=== PATIENT | female | born 1970 | race Caucasian/White ===

== ENCOUNTER 2018-02-23 01:37 | Emergency (ER) | payer MEDICARE, MEDICAID, SELFPAY ==
[2018-02-23] VITALS (21 sets, daily range): BP systolic 111–119; BP diastolic 68–84; PULSE 56–104; RESP 10–34; TEMP 37; O2SAT 94–99
--- NOTE | 2018-02-23 01:58 | W.ED.GENAD ---
Discharge Plan Disposition Patient Disposition: HOSPITAL, NON-SPECIFIC Condition: Stable Discharge Details Chief Complaint: Abd Prob Clinical Impression: Acute cholecystitis Primary Care Provider: NONE,NONE ED Provider: Alejandro Correa Home Meds and New Rx's Prescriptions: No Action No Known Home Meds RF: 0 Discharge Instructions Additional Instructions: Go directly to [facility] in [place] for admission to surgical service for acute cholecystitis. Medical Decision Making Patient presenting with acute onset of right upper quadrant pain that has worsened over the course of the night. She is exquisitely tender with guarding and Pedro sign. Reports previous history of gallbladder problems. IV has been established. Fluids started. Toradol given for pain. She does not wish to have narcotics. 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 scan of the abdomen pelvis ordered. Patient laboratory studies with slight elevation in her liver function but baseline and stable. Mild elevation in lipase as well. White count is normal. Pain much better after Toradol but matrix drier tender in the right upper quadrant with Pedro sign on exam. CT scan shows evidence of gallstones as well as thickened edematous gallbladder wall consistent with acute cholecystitis. Discussed options with patient as there are no beds here tonight. She would like transfer if possible. Case discussed with surgeon on-call for [facility], Dr. Corbett. He has accepted the patient in transfer and they do have beds available. Patient is given a dose of IV Zosyn here. She and significant other would like to go down by private vehicle. She is hemodynamically stable. Her pain is currently under control. I do not feel that she has risk for using her IV inappropriately given that she has been clean and sober for 3 years. She will be transported to [facility] by her significant other by private vehicle. Lab Data Lab results reviewed: Yes I reviewed the patient's lab results. ECG Data Attestation: I personally reviewed and interpreted this ECG (s) as follows: Prior ECG tracings: not available for review Interpretation: Sinus rhythm at 72. Normal axis and intervals. No acute ST changes. HPI General Mode of arrival: ambulatory. Date/Time Provider Initiated Documentation: 02/23/18 01:57. Limitations to Documentation: no limitations. Information obtained by: patient. HPI Narrative: Patient presents to ED with onset of epigastric/right upper quadrant abdominal pain around 9 PM tonight. She reports a history of gallstones and previous attacks. Typically if she develops pain she takes some Aleve and waits a couple of hours and it goes away. Tonight the pain has just got worse. She has had nausea and one episode of vomiting. Pain is radiating through to the back. She has had no fever. She has never had prolonged pain like this previously except once 7 or 8 years ago. She denies chest pain or shortness of breath. She denies urinary symptoms. Related Data Home Medications Medication Instructions Recorded Confirmed Unknown [No Known Home Meds] 02/23/18 02/23/18 Allergies Allergy/AdvReac Type Severity Reaction Status Date / Time Sulfa (Sulfonamide Allergy Mild Hives Unverified 11/12/13 02:57 Antibiotics) NSAIDS (Non-Steroidal AdvReac Mild Contraindic Unverified 02/23/18 01:54 Anti-Inflamma ated General Stated Complaint: Abd Prob MARIA A: 2 Review of Systems Constitutional Denies chills, Denies fever(s), Denies headache(s) and Denies weakness Eyes Denies change in vision and Denies eye pain ENT Denies facial pain, Denies headache(s) and Denies neck pain Cardiovascular Denies chest pain, Denies syncope, Denies pedal edema and Denies dyspnea Respiratory Denies cough and Denies dyspnea Gastrointestinal Reports abdominal pain, Denies diarrhea, Reports nausea and Reports vomiting Genitourinary Denies hematuria, Denies dysuria, Denies pelvic pain and Denies vaginal discharge Musculoskeletal Reports back pain, Denies neck pain and Denies numbness Integumentary/Breasts Denies rash Neurologic Denies syncope, Denies headache(s), Denies focal weakness, Denies numbness and Denies weakness [facility] Medical History Hepatitis C (Chronic) PTSD (post-traumatic stress disorder) (Chronic) Social History Smoking/Tobacco Use Status: Current every day Surgical History S/P tubal ligation (Inactive) Traumatic enucleation of left eye (Inactive) Exam Const General: cooperative and in distress Orientation: alert and oriented x3 HENMT Head: normocephalic and atraumatic Eyes Other: Right eye is normal. No icterus. Left eye is prosthetic. Neck Neck: normal visual inspection, trachea midline and supple Resp Effort & Inspection: normal respiratory effort Auscultation: clear to auscultation bilaterally Cardio Rate: regular rate Rhythm: regular rhythm Heart Sounds: S1 normal and S2 normal GI Palpation: soft, guarding in the RUQ and tender in the RUQ and Pedro's sign positive Back/Spine/Pelvis Back: no CVA tenderness Skin Rashes: no rashes Neuro General: alert, oriented x3, no focal motor deficits and CN's II-XI intact bilaterally Extrem General: normal to inspection, full ROM and no clubbing, cyanosis or edema Course Vital Signs Temperature 98.6 F 02/23/18 01:49 Pulse 76 02/23/18 01:49 Respiratory Rate 17 02/23/18 01:49 Blood Pressure 117/79 02/23/18 01:49 Pulse Oximetry 97 02/23/18 01:49 Temperature 98.6 F 02/23/18 01:49 Temperature Source Temporal Artery Scan 02/23/18 01:49 Pulse 76 02/23/18 01:49 Respiratory Rate 17 02/23/18 01:49 Respiratory Effort 02/23/18 01:53 Blood Pressure 117/79 02/23/18 01:49 Blood Pressure Position Sitting 02/23/18 01:49 Pulse Oximetry 97 02/23/18 01:49 Oxygen Delivery Method Room Air 02/23/18 01:49 Oxygen Flow Rate 0 02/23/18 01:49 Pain Level 7 02/23/18 01:49
--- NOTE | 2018-02-23 02:09 | DI.CT_ITS ---
SYMPTOM/DIAGNOSIS: RUQ PAIN, TENDERNESS ABDOMEN AND PELVIC CT: CT scan of the abdomen and pelvis was performed following the uneventful administration of intravenous contrast material. Comparison is made with . The visualized lung bases are clear. The liver is normal in size. The liver does have a lobulated contour raising the question of hepatic cirrhosis. No hepatic mass is seen. The gallbladder is distended measuring 5.9 cm. in diameter. There is enhancement of the wall. Small gallstones are present. There is pericholecystic fluid. No biliary ductal dilatation is seen. The portal and superior mesenteric veins are patent. The pancreas, adrenal glands, kidneys, ureters and bladder are unremarkable. The reproductive organs are grossly unremarkable. The spleen is unremarkable. The abdominal aorta shows mild atherosclerosis. No aneurysmal dilatation is seen. No significant abdominal or pelvic adenopathy or pneumoperitoneum is present. The bowel shows no evidence of obstruction or inflammation. There is a normal appendix present. Degenerative changes are seen in the spine. IMPRESSION: Cholelithiasis and findings raising the question of acute cholecystitis. Follow up as clinically appropriate.
[2018-02-23 02:30] LABS: Abs Immature Grans 0.01 k/cumm (0.0-0.09); Absolute Basophil Count 0.01 k/cumm (0.0-0.2); Absolute Eosinophil Count 0.06 k/cumm (0.0-0.7); Absolute Lymphocyte Count 1.83 k/cumm (1.2-3.4); Absolute Monocyte Count 0.35 k/cumm (0.11-0.7); Absolute Neutrophil Count 3.12 k/cumm (1.2-6.7); Basophils % 0.2; Eosinophils % 1.1; HCT 37.6 % (36.0-46.0); HGB 13.3 g/dL (12.0-15.5); Immature Grans % 0.2; Mean Corp. HGB Concentration 35.4 g/dL (32.0-36.0); Mean Corpuscular Hemoglobin 34.9 pg (27.0-33.0); Mean Corpuscular Volume 98.7 fL (80-95); Mean Platelet Volume 11.9 fL (8.0-11.0); Monocytes % 6.5; Platelet Count 81 x1000/uL (130-400); RBC 3.81 m/cumm (4.00-5.20); RBC Distribution Width 13.8 % (11.7-14.6); White Blood Cell Count 5.38 k/cumm (4.4-10.8)
[2018-02-23] MEDS: Ketorolac 15 MG/ML VIAL IVP (02:32)
[2018-02-23] MEDS: Ondansetron 4 MG/2 ML VIAL IVP (02:33)
[2018-02-23] MEDS: Lactated Ringers 1,000 ML 125 ML IV (02:33)
[2018-02-23 02:38] LABS: Bilirubin Negative (Negative); Blood Negative (Negative); Clarity Clear; Glucose Negative (Negative); Ketones Negative (Negative); Leukocyte Esterase Negative (Negative); Nitrite Negative (Negative); Specific Gravity 1.015 (1.005-1.025); pH 7.5 (5-8)
[2018-02-23 02:41] LABS: ALT 96 U/L (12-78); AST 72 U/L (15-37); Albumin 3.6 g/dL (3.4-5.0); Alkaline Phosphatase 91 U/L (46-116); Anion Gap 11.4 mmol/L (3-11); BUN 13 mg/dL (7-18); Bilirubin, Total 0.6 mg/dL (0.2-1.0); CO2 27.6 mmol/L (21.0-32.0); CREATININE 0.82 mg/dL (0.55-1.02); Calcium 9.2 mg/dL (8.5-10.1); Chloride 100 mmol/L (98-107); Glucose 110 mg/dL (70-100); Lipase 415 U/L (73-393); Potassium 3.9 mmol/L (3.5-5.1); Sodium 139 mmol/L (136-145); Total Protein 7.5 g/dL (6.4-8.2)
[2018-02-23 03:00] LABS: Diff Comment Agrees w/ Instrument
[2018-02-23 03:01] LABS: RBC Morphology Normal
--- NOTE | 2018-02-23 03:08 | DI.VRAD_ITS ---
EXAM: CT Abdomen and Pelvis With Intravenous Contrast EXAM DATE/TIME: 02/23/2018 2:12 AM CLINICAL HISTORY: 47 years old, female; Pain; Abdominal pain TECHNIQUE: Axial computed tomography images of the abdomen and pelvis with intravenous contrast. Coronal and sagittal reformatted images were created and reviewed. COMPARISON: No relevant prior studies available. FINDINGS: Lower thorax: No acute findings. ABDOMEN: Liver: Normal. No mass. Gallbladder and bile ducts: Small stones in the gallbladder. Distended gallbladder with a thickened, edematous wall. Pancreas: Normal. No ductal dilation. Spleen: Normal. No splenomegaly. Adrenals: Normal. No mass. Kidneys and ureters: Normal. No hydronephrosis. Stomach and bowel: Normal. No obstruction. No mucosal thickening. Appendix: No evidence of appendicitis. PELVIS: Bladder: Unremarkable as visualized. Reproductive: Unremarkable as visualized. ABDOMEN and PELVIS: Intraperitoneal space: Normal. No free air. No significant fluid collection. Bones/joints: No acute fracture. No dislocation. Soft tissues: Unremarkable. Vasculature: Normal. No abdominal aortic aneurysm. Lymph nodes: Normal. No enlarged lymph nodes. IMPRESSION: Cholelithiasis and possibly cholecystitis. Dictated and Authenticated by: Justin Cohen MD. Ordering:SANJANA BRAGG MD
[2018-02-23] MEDS: PIPERACILLIN/TAZO 3.375 GM in Normal Saline 50 ML IVPB (04:01)
--- NOTE | 2018-02-23 04:04 | ED.GENADUL_ITS ---
Discharge Plan Disposition Patient Disposition: HOSPITAL, NON-SPECIFIC Condition: Stable Discharge Details Chief Complaint: Abd Prob Clinical Impression: Acute cholecystitis Primary Care Provider: NONE,NONE ED Provider: Alejandro Correa Home Meds and New Rx's Prescriptions: No Action No Known Home Meds RF: 0 Discharge Instructions Additional Instructions: Go directly to [facility] in [place] for admission to surgical service for acute cholecystitis. Medical Decision Making Patient presenting with acute onset of right upper quadrant pain that has worsened over the course of the night. She is exquisitely tender with guarding and Pedro sign. Reports previous history of gallbladder problems. IV has been established. Fluids started. Toradol given for pain. She does not wish to have narcotics. 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 scan of the abdomen pelvis ordered. Patient laboratory studies with slight elevation in her liver function but baseline and stable. Mild elevation in lipase as well. White count is normal. Pain much better after Toradol but still cleaner in the right upper quadrant with Pedro sign on exam. CT scan shows evidence of gallstones as well as thickened edematous gallbladder wall consistent with acute cholecystitis. Discussed options with patient as there are no beds here tonight. She would like transfer if possible. Case discussed with surgeon on-call for [facility], Dr. Corbett. He has accepted the patient in transfer and they do have beds available. Patient is given a dose of IV Zosyn here. She and significant other would like to go down by private vehicle. She is hemodynamically stable. Her pain is currently under control. I do not feel that she has risk for using her IV inappropriately given that she has been clean and sober for 3 years. She will be transported to [facility] by her significant other by private vehicle. Lab Data Lab results reviewed: Yes I reviewed the patient's lab results. ECG Data Attestation: I personally reviewed and interpreted this ECG (s) as follows: Prior ECG tracings: not available for review Interpretation: Sinus rhythm at 72. Normal axis and intervals. No acute ST changes. HPI General Mode of arrival: ambulatory . Date/Time Provider Initiated Documentation: 02/23/18 01:57 . Limitations to Documentation: no limitations . Information obtained by: patient . HPI Narrative: Patient presents to ED with onset of epigastric/right upper quadrant abdominal pain around 9 PM tonight. She reports a history of gallstones and previous attacks. Typically if she develops pain she takes some Aleve and waits a couple of hours and it goes away. Tonight the pain has just got worse. She has had nausea and one episode of vomiting. Pain is radiating through to the back. She has had no fever. She has never had prolonged pain like this previously except once 7 or 8 years ago. She denies chest pain or shortness of breath. She denies urinary symptoms. Related Data Home Medications Medication Instructions Recorded Confirmed Unknown [No Known Home Meds] 02/23/18 02/23/18 Allergies Allergy/AdvReac Type Severity Reaction Status Date / Time Sulfa (Sulfonamide Allergy Mild Hives Unverified 11/12/13 02:57 Antibiotics) NSAIDS (Non-Steroidal AdvReac Mild Contraindic Unverified 02/23/18 01:54 Anti-Inflamma ated General Stated Complaint: Abd Prob MARIA A: 2 Review of Systems Constitutional Denies chills, Denies fever(s), Denies headache(s) and Denies weakness Eyes Denies change in vision and Denies eye pain ENT Denies facial pain, Denies headache(s) and Denies neck pain Cardiovascular Denies chest pain, Denies syncope, Denies pedal edema and Denies dyspnea Respiratory Denies cough and Denies dyspnea Gastrointestinal Reports abdominal pain, Denies diarrhea, Reports nausea and Reports vomiting Genitourinary Denies hematuria, Denies dysuria, Denies pelvic pain and Denies vaginal discharge Musculoskeletal Reports back pain, Denies neck pain and Denies numbness Integumentary/Breasts Denies rash Neurologic Denies syncope, Denies headache(s), Denies focal weakness, Denies numbness and Denies weakness [facility] Medical History Hepatitis C (Chronic) PTSD (post-traumatic stress disorder) (Chronic) Social History Smoking/Tobacco Use Status: Current every day Surgical History S/P tubal ligation (Inactive) Traumatic enucleation of left eye (Inactive) Exam Const General: cooperative and in distress Orientation: alert and oriented x3 HENMT Head: normocephalic and atraumatic Eyes Other: Right eye is normal. No icterus. Left eye is prosthetic. Neck Neck: normal visual inspection, trachea midline and supple Resp Effort & Inspection: normal respiratory effort Auscultation: clear to auscultation bilaterally Cardio Rate: regular rate Rhythm: regular rhythm Heart Sounds: S1 normal and S2 normal GI Palpation: soft, guarding in the RUQ and tender in the RUQ and Pedro's sign positive Back/Spine/Pelvis Back: no CVA tenderness Skin Rashes: no rashes Neuro General: alert, oriented x3, no focal motor deficits and CN's II-XI intact bilaterally Extrem General: normal to inspection, full ROM and no clubbing, cyanosis or edema Course Vital Signs Temperature 98.6 F 02/23/18 01:49 Pulse 76 02/23/18 01:49 Respiratory Rate 17 02/23/18 01:49 Blood Pressure 117/79 02/23/18 01:49 Pulse Oximetry 97 02/23/18 01:49 Temperature 98.6 F 02/23/18 01:49 Temperature Source Temporal Artery Scan 02/23/18 01:49 Pulse 76 02/23/18 01:49 Respiratory Rate 17 02/23/18 01:49 Respiratory Effort 02/23/18 01:53 Blood Pressure 117/79 02/23/18 01:49 Blood Pressure Position Sitting 02/23/18 01:49 Pulse Oximetry 97 02/23/18 01:49 Oxygen Delivery Method Room Air 02/23/18 01:49 Oxygen Flow Rate 0 02/23/18 01:49 Pain Level 7 02/23/18 01:49
== END 2018-02-23 04:40 | disposition short-term general hospital (02) ==
PROVIDERS: Emergency Provider Emergency Medicine
DX: K80.00 Calculus of gallbladder with acute cholecystitis without obstruction (principal); R11.2 Nausea with vomiting, unspecified
CPT/HCPCS: 36415; 80053; 81025; 83690; 93005; 96361; 96365; 96375; 99285; 74177; 81003; 85025; 93010; J1885; J2405; J2543

== ENCOUNTER 2018-03-12 15:27 | Outpatient (REF) | payer MEDICARE, SELFPAY ==
[2018-03-12 19:05] LABS: ALT 70 U/L (12-78); AST 63 U/L (15-37); Albumin 3.9 g/dL (3.4-5.0); Alkaline Phosphatase 111 U/L (46-116); Anion Gap 9.5 mmol/L (3-11); BUN 7 mg/dL (7-18); Bilirubin, Total 0.3 mg/dL (0.2-1.0); CO2 26.5 mmol/L (21.0-32.0); CREATININE 0.81 mg/dL (0.55-1.02); Chloride 103 mmol/L (98-107); Glucose 115 mg/dL (70-100); Potassium 3.8 mmol/L (3.5-5.1); Sodium 139 mmol/L (136-145); Total Protein 7.7 g/dL (6.4-8.2)
[2018-03-12 19:08] LABS: Absolute Basophil Count 0.02 k/cumm (0.0-0.2); Absolute Eosinophil Count 0.04 k/cumm (0.0-0.7); Absolute Lymphocyte Count 1.28 k/cumm (1.2-3.4); Absolute Monocyte Count 0.28 k/cumm (0.11-0.7); Absolute Neutrophil Count 2.91 k/cumm (1.2-6.7); Basophils % 0.4; Eosinophils % 0.9; HCT 35.5 % (36.0-46.0); HGB 12.1 g/dL (12.0-15.5); Lymphocytes % 28.3; Mean Corp. HGB Concentration 34.1 g/dL (32.0-36.0); Mean Corpuscular Hemoglobin 34.4 pg (27.0-33.0); Mean Corpuscular Volume 100.9 fL (80-95); Mean Platelet Volume 12.2 fL (8.0-11.0); Monocytes % 6.2; Neutrophils % 64.2; Platelet Count 108 x1000/uL (130-400); RBC 3.52 m/cumm (4.00-5.20); RBC Distribution Width 14.1 % (11.7-14.6); White Blood Cell Count 4.53 k/cumm (4.4-10.8)
[2018-03-14 12:12] LABS: Hepatitis C Ab w Rflx HCV PCR Reactive (NEGAT)
== END 2018-03-12 15:47 ==
LOC: NCHCN 15:27
PROVIDERS: PCP Nurse Practitioner Family; Visit Provider Nurse Practitioner Family
DX: K74.60 Unspecified cirrhosis of liver (principal)
CPT/HCPCS: 80053; 86803; 85025; 87522

== ENCOUNTER 2018-04-26 17:56 | Outpatient (REF) | payer MEDICARE, MEDICAID, SELFPAY ==
[2018-04-26 18:49] LABS: INR 1.1 (0.9-1.1); Prothrombin Time 10.9 sec (9.3-11.0)
[2018-04-29 09:30] LABS: Hepatitis B Surface Ag Negative (NEGAT)
[2018-04-29 09:34] LABS: HIV-1/2 Ag & Ab Screen Negative (NEGAT)
[2018-04-29 09:37] LABS: HBs Antibody, Quant <3.1 mIU/mL; Hepatitis B Surface Ab Negative
[2018-04-29 09:52] LABS: Hep A Total Ab w Rflx IgM Negative (NEGAT); Hep B Core Antibody Negative (NEGAT)
[2018-04-30 17:09] LABS: HCV Genotype 1a (Undetected)
== END 2018-04-26 18:16 ==
LOC: NCHCN 17:56
PROVIDERS: PCP Nurse Practitioner Family; Visit Provider Family Medicine
DX: B19.20 Unspecified viral hepatitis C without hepatic coma (principal); Z11.4 Encounter for screening for human immunodeficiency virus [HIV]; Z01.84 Encounter for antibody response examination
CPT/HCPCS: 82172; 82247; 82977; 83010; 83883; 84460; 86704; 86706; 86709; 87340; 87389; 85610; 87521

== ENCOUNTER 2018-06-11 17:01 | Emergency (ER) | payer MEDICARE, MEDICAID, SELFPAY ==
[2018-06-11 17:07] VITALS: BP 132/76; PULSE 72; RESP 16; TEMP 36.7; O2SAT 99
--- NOTE | 2018-06-11 17:18 | W.ED.GENAD ---
Discharge Plan Disposition Patient Disposition: HOME Condition: Stable Discharge Details Chief Complaint: DentalOral Clinical Impression: Dental caries Primary Care Provider: Vivienne Kent ED Provider: Jared Gamez Home Meds and New Rx's Prescriptions: New penicillin V potassium 500 mg tablet 500 mg PO QID 10 Days Qty: 40 RF: 0 tramadol 50 mg tablet 50 mg PO Q6H PRN (Reason: pain) Qty: 7 RF: 0 Discharge Instructions Instructions: Dental Caries (ED) Medical Decision Making 47 yo female comes in with right upper tooth pain. She states the posterior half broke off last night. Denies fevers, chills, dyspnea, difficulty swallowing. Has numberous caries and has had this problem in the past per pt. Has right mid upper molar that is only molar left. Numerous caries to the point I can't tell what is normal tooth. No fluctuance. Normal oropharynx, no abscess I can drain and no findings to suggest ludwigs. Will start abx for possible pulpitis and advised f/[facility] dentist and return precautions given Differential Diagnosis dental caries, pulpitis HPI General Mode of arrival: ambulatory. Date/Time Provider Initiated Documentation: 06/11/18 17:13. Limitations to Documentation: no limitations. Information obtained by: patient. History of Present Illness 47 year old F presents to the emergency department with the chief complaint of tooth pain, described as severe, with intensity rated at 8. Quality is described as sharp, and is localized to the mouth. Patient reports no radiation. Patient started experiencing this day(s) (1) and it has been constant. No relieving factors improve symptom(s), No exacerbating factors reported . Patient notes no other symptoms.. Patient did receive the following treatments prior to arrival, NSAID Related Data Home Medications Medication Instructions Recorded Confirmed penicillin V potassium 500 mg PO QID 10 Days #40 tab 06/11/18 tramadol 50 mg PO Q6H PRN #7 tab 06/11/18 Previous Rx's Medication Instructions Recorded penicillin V potassium 500 mg PO QID 10 Days #40 tab 06/11/18 tramadol 50 mg PO Q6H PRN #7 tab 06/11/18 Allergies Allergy/AdvReac Type Severity Reaction Status Date / Time Sulfa (Sulfonamide Allergy Mild Hives Unverified 06/11/18 17:10 Antibiotics) NSAIDS (Non-Steroidal AdvReac Mild Contraindic Unverified 06/11/18 17:10 Anti-Inflamma ated bees Allergy Uncoded 06/11/18 17:10 tape Allergy Uncoded 06/11/18 17:10 General Stated Complaint: DentalOral MARIA A: 4 Review of Systems Review of Systems All systems reviewed & are unremarkable except as noted in HPI and below Constitutional Denies chills and Denies fever(s) ENT Denies change in voice Cardiovascular Denies chest pain and Denies dyspnea Respiratory Denies cough and Denies dyspnea Gastrointestinal Denies abdominal pain, Denies nausea and Denies vomiting Musculoskeletal Denies joint swelling Psychiatric Denies depression [facility] Medical History Hepatitis C (Chronic) PTSD (post-traumatic stress disorder) (Chronic) Surgical History S/P tubal ligation (Inactive) Traumatic enucleation of left eye (Inactive) Social History Smoking and Tabacco status: Current every day Exam Const General: no acute distress Orientation: alert HENMT Head: normal to inspection Ears: external ears normal General nose exam: external nose normal Mouth: moist mucous membranes Eyes General: appearance normal, both eyes and all related structures Neck Neck: normal visual inspection Resp Effort & Inspection: normal respiratory effort and able to speak in complete sentences Cardio Rate: regular rate Skin General skin exam: no rashes or lesions noted Neuro General: alert and oriented x3 Extrem General: normal to inspection Psych Mental Status: mental status grossly normal Course Vital Signs Temperature 36.7 C 06/11/18 17:07 Pulse 72 06/11/18 17:07 Respiratory Rate 16 06/11/18 17:07 Blood Pressure 132/76 06/11/18 17:07 Pulse Oximetry 99 06/11/18 17:07 Temperature 36.7 C 06/11/18 17:07 Temperature Source Skin 06/11/18 17:07 Pulse 72 06/11/18 17:07 Respiratory Rate 16 06/11/18 17:07 Respiratory Effort Non-Labored 06/11/18 17:07 Blood Pressure 132/76 06/11/18 17:07 Blood Pressure Position Sitting 06/11/18 17:07 Pulse Oximetry 99 06/11/18 17:07 Oxygen Delivery Method Room Air 06/11/18 17:07 Oxygen Flow Rate 0 06/11/18 17:07 Pain Level 7 06/11/18 17:07
--- NOTE | 2018-06-11 17:21 | ED.GENADUL_ITS ---
Discharge Plan Disposition Patient Disposition: HOME Condition: Stable Discharge Details Chief Complaint: DentalOral Clinical Impression: Dental caries Primary Care Provider: Vivienne Kent ED Provider: Jared Gamez Home Meds and New Rx's Prescriptions: New penicillin V potassium 500 mg tablet 500 mg PO QID 10 Days Qty: 40 RF: 0 tramadol 50 mg tablet 50 mg PO Q6H PRN (Reason: pain) Qty: 7 RF: 0 Discharge Instructions Instructions: Dental Caries (ED) Medical Decision Making 47 yo female comes in with right upper tooth pain. She states the posterior half broke off last night. Denies fevers, chills, dyspnea, difficulty swallowing. Has numberous caries and has had this problem in the past per pt. Has right mid upper molar that is only molar left. Numerous caries to the point I can't tell what is normal tooth. No fluctuance. Normal oropharynx, no abscess I can drain and no findings to suggest ludwigs. Will start abx for possible pulpitis and advised f/[facility] dentist and return precautions given Differential Diagnosis dental caries, pulpitis HPI General Mode of arrival: ambulatory . Date/Time Provider Initiated Documentation: 06/11/18 17:13 . Limitations to Documentation: no limitations . Information obtained by: patient . History of Present Illness 47 year old F presents to the emergency department with the chief complaint of tooth pain, described as severe, with intensity rated at 8. Quality is described as sharp, and is localized to the mouth. Patient reports no radiation. Patient started experiencing this day(s) (1) and it has been constant. No relieving factors improve symptom(s), No exacerbating factors reported . Patient notes no other symptoms.. Patient did receive the following treatments prior to arrival, NSAID Related Data Home Medications Medication Instructions Recorded Confirmed penicillin V potassium 500 mg PO QID 10 Days #40 tab 06/11/18 tramadol 50 mg PO Q6H PRN #7 tab 06/11/18 Previous Rx's Medication Instructions Recorded penicillin V potassium 500 mg PO QID 10 Days #40 tab 06/11/18 tramadol 50 mg PO Q6H PRN #7 tab 06/11/18 Allergies Allergy/AdvReac Type Severity Reaction Status Date / Time Sulfa (Sulfonamide Allergy Mild Hives Unverified 06/11/18 17:10 Antibiotics) NSAIDS (Non-Steroidal AdvReac Mild Contraindic Unverified 06/11/18 17:10 Anti-Inflamma ated bees Allergy Uncoded 06/11/18 17:10 tape Allergy Uncoded 06/11/18 17:10 General Stated Complaint: DentalOral MARIA A: 4 Review of Systems Review of Systems All systems reviewed & are unremarkable except as noted in HPI and below Constitutional Denies chills and Denies fever(s) ENT Denies change in voice Cardiovascular Denies chest pain and Denies dyspnea Respiratory Denies cough and Denies dyspnea Gastrointestinal Denies abdominal pain, Denies nausea and Denies vomiting Musculoskeletal Denies joint swelling Psychiatric Denies depression [facility] Medical History Hepatitis C (Chronic) PTSD (post-traumatic stress disorder) (Chronic) Surgical History S/P tubal ligation (Inactive) Traumatic enucleation of left eye (Inactive) Social History Smoking and Tabacco status: Current every day Exam Const General: no acute distress Orientation: alert HENMT Head: normal to inspection Ears: external ears normal General nose exam: external nose normal Mouth: moist mucous membranes Eyes General: appearance normal, both eyes and all related structures Neck Neck: normal visual inspection Resp Effort & Inspection: normal respiratory effort and able to speak in complete sentences Cardio Rate: regular rate Skin General skin exam: no rashes or lesions noted Neuro General: alert and oriented x3 Extrem General: normal to inspection Psych Mental Status: mental status grossly normal Course Vital Signs Temperature 36.7 C 06/11/18 17:07 Pulse 72 06/11/18 17:07 Respiratory Rate 16 06/11/18 17:07 Blood Pressure 132/76 06/11/18 17:07 Pulse Oximetry 99 06/11/18 17:07 Temperature 36.7 C 06/11/18 17:07 Temperature Source Skin 06/11/18 17:07 Pulse 72 06/11/18 17:07 Respiratory Rate 16 06/11/18 17:07 Respiratory Effort Non-Labored 06/11/18 17:07 Blood Pressure 132/76 06/11/18 17:07 Blood Pressure Position Sitting 06/11/18 17:07 Pulse Oximetry 99 06/11/18 17:07 Oxygen Delivery Method Room Air 06/11/18 17:07 Oxygen Flow Rate 0 06/11/18 17:07 Pain Level 7 06/11/18 17:07
== END 2018-06-11 17:25 | disposition home or self-care (01) ==
LOC: ER 17:39
PROVIDERS: Emergency Provider Emergency Medicine; PCP Nurse Practitioner Family
DX: K02.9 Dental caries, unspecified (principal)
CPT/HCPCS: 99283

== ENCOUNTER 2018-10-18 14:09 | Outpatient (REF) | payer MEDICARE, MEDICAID, SELFPAY ==
[2018-10-18 18:57] LABS: HCT 39.9 % (36.0-46.0); HGB 13.7 g/dL (12.0-15.5); Mean Corp. HGB Concentration 34.3 g/dL (32.0-36.0); Mean Corpuscular Hemoglobin 33.3 pg (27.0-33.0); Mean Corpuscular Volume 97.1 fL (80-95); Mean Platelet Volume 12.5 fL (8.0-11.0); RBC 4.11 m/cumm (4.00-5.20); RBC Distribution Width 13.5 % (11.7-14.6); White Blood Cell Count 5.36 k/cumm (4.4-10.8)
[2018-10-18 19:12] LABS: ALT 24 U/L (12-78); AST 21 U/L (15-37); Albumin 3.6 g/dL (3.4-5.0); Alkaline Phosphatase 128 U/L (46-116); Anion Gap 10.2 mmol/L (3-11); BUN 7 mg/dL (7-18); Bilirubin, Total 0.5 mg/dL (0.2-1.0); CO2 23.8 mmol/L (21.0-32.0); CREATININE 0.77 mg/dL (0.55-1.02); Calcium 8.8 mg/dL (8.5-10.1); Chloride 104 mmol/L (98-107); Glucose 88 mg/dL (70-100); Potassium 4.3 mmol/L (3.5-5.1); Sodium 138 mmol/L (136-145); Total Protein 7.8 g/dL (6.4-8.2)
[2018-10-18 19:23] LABS: Platelet Count 109 x1000/uL (130-400)
[2018-10-21 14:42] LABS: HCV RNA Detection Quantitative Undetected IU/mL (UNDECT)
== END 2018-10-18 14:29 ==
LOC: NCHCN 14:09
PROVIDERS: PCP Nurse Practitioner Family; Visit Provider Family Medicine
DX: B19.20 Unspecified viral hepatitis C without hepatic coma (principal); Z11.59 Encounter for screening for other viral diseases
CPT/HCPCS: 80053; 85027; 86803; 87522

== ENCOUNTER 2019-11-24 19:07 | Outpatient (REF) | payer MEDICARE, MEDICAID, SELFPAY ==
[2019-11-24 19:36] LABS: HCT 42.5 % (36.0-46.0); HGB 14.2 g/dL (11.2-15.7); MCH 32.6 pg (27.0-33.0); MCHC 33.4 % (32.0-36.0); MCV 97.7 fL (80-95); MPV 12.4 fL (8.0-11.0); Platelet Count 108 10^3/uL (130-400); RBC 4.35 10^6/uL (3.93-5.22); RDW 13.4 % (11.7-14.6); RDW-SD 48.7 fL; WBC 5.97 10^3/uL (4.4-10.8)
[2019-11-24 19:48] LABS: Prothrombin Time 10.4 sec (9.3-11.0)
[2019-11-24 20:01] LABS: ALT 33 U/L (14-59); AST 25 U/L (15-37); Albumin 4.2 g/dL (3.4-5.0); Alkaline Phosphatase 90 U/L (46-116); Anion Gap 12.2 mmol/L (3-11); BUN 16 mg/dL (7-18); Bilirubin, Total 0.3 mg/dL (0.2-1.0); CO2 24.8 mmol/L (21.0-32.0); Chloride 104 mmol/L (98-107); Glucose 110 mg/dL (74-106); Potassium 3.7 mmol/L (3.5-5.1); Sodium 141 mmol/L (136-145); Total Protein 7.8 g/dL (6.4-8.2)
[2019-11-26 13:04] LABS: HCV RNA Qualitative Undetected (Undetected)
== END 2019-11-24 19:27 ==
LOC: NCHCN 19:07
PROVIDERS: PCP Nurse Practitioner Family; Visit Provider Family Medicine
DX: B19.20 Unspecified viral hepatitis C without hepatic coma (principal); K74.60 Unspecified cirrhosis of liver
CPT/HCPCS: 80053; 85027; 87522; 85610

== ENCOUNTER → 2019-12-18 10:49 | Outpatient (BNVA) | payer MEDICARE, MEDICAID, SELFPAY | PROVIDERS: PCP Nurse Practitioner Family; Referring Provider Nurse Practitioner Family; Visit Provider Physical Therapy Assistant | DX: K92.1 Melena (principal); Z11.59 Encounter for screening for other viral diseases; K64.9 Unspecified hemorrhoids | CPT/HCPCS: 99213 ==

== ENCOUNTER 2019-12-23 09:14 | Outpatient (CLI) | payer MEDICARE, MEDICAID, SELFPAY ==
--- NOTE | 2019-12-23 08:45 | DI.RAD_ITS ---
EXAM: XR KNEE LT 2V AP,LAT CLINICAL HISTORY: pain. TECHNIQUE: 2D digital imaging was performed. COMPARISON: CR LEFT KNEE 3 VIEW COMPLETE from 08/11/2013 FINDINGS: Degenerative changes are seen in the left knee characterized by periarticular spurring and joint spac e narrowing. The findings are most marked in the lateral femoral tibial joint. The bones are intact and normally mineralized. There is a small joint effusion. The soft tissues are otherwise unremark able. IMPRESSION: Degenerative changes of the left knee. DATA REPOSITORY: RADIATION DOSE DELIVERED:
== END 2019-12-23 09:34 ==
PROVIDERS: PCP Nurse Practitioner Family; Referring Provider Family Medicine; Visit Provider Orthopaedic Surgery
DX: M17.12 Unilateral primary osteoarthritis, left knee (principal); M25.562 Pain in left knee; M25.511 Pain in right shoulder
CPT/HCPCS: 20610; 99203; 99214; 73560; J1040

== ENCOUNTER 2019-12-30 07:10 | Outpatient (CLI) | payer MEDICARE, MEDICAID, SELFPAY ==
[2019-12-31 20:40] LABS: COVID-19 RT-PCR Result NEGATIVE (Negative)
== END 2019-12-30 07:30 ==
PROVIDERS: Physical Therapy Assistant; PCP Nurse Practitioner Family; Visit Provider Surgery
DX: Z01.818 Encounter for other preprocedural examination (principal)
CPT/HCPCS: U0003

== ENCOUNTER 2020-01-02 07:22 | Day surgery (SDC) | payer MEDICARE, MEDICAID, SELFPAY ==
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
[2020-01-02 07:35] VITALS: BP 106/74; PULSE 81; RESP 16; TEMP 36.8; O2SAT 94
[2020-01-02] MEDS: Lactated Ringers 1,000 ML 80 ML IV (08:07)
--- NOTE | 2020-01-02 09:00 | W.PM.DSUDISC ---
Discharge Plan Disposition Patient Disposition: HOME Condition: Good Discharge Details Reason For Visit: EGD, Colonoscopy Attending Provider: Liana Douglas Primary Care Provider: Nicho Aguila Home Meds and New Rx's Prescriptions: Continued naproxen sodium [Aleve] 220 mg capsule 440 mg PO BID PRNRF: 0 Discontinued polyethylene glycol 3350 17 gram/dose powder 238 g PO ONCE Qty: 238 RF: 0 bisacodyl [Dulcolax (bisacodyl)] 5 mg tablet,delayed release (DR/EC) 5 mg PO ONCE Qty: 4 RF: 0 Discharge Instructions Additional Instructions: Findings: Your EGD showed mild inflammation in the stomach which could be a side effect of taking Aleve. Your colonoscopy was normal. Typical appearing internal hemorrhoids were present. Follow up: Plan for routine screening colonoscopy in 10 years Please call if you develop: fevers >101.5 Nausea or Vomiting Abdominal pain that is not transient DAY SURGERY UNIT POST EGD/COLONOSCOPY INSTRUCTIONS 1. Because there will be medication in your system for the next 24 hours, you may feel a little sleepy. Your coordination will be affected. Therefore: a. Do not drive or operate dangerous equipment for 24 hours. b. Do not drink alcohol beverages for 24 hours (not even beer). c. Plan to go home and rest for the day. 2. Generally there are no restrictions on your activity after a day or so has gone by, but you may feel a bit fatigued for a few days. 3 After you arrive home you may have a light meal and return to a normal diet as you can tolerate it without feeling sick to your stomach. 4. After surgery, you may feel pain or discomfort. This should be only transient, but if it persists please contact your doctor. 5. If there are any questions regarding the findings of your procedure, please feel free to contact your doctor. 6. If you are unable to contact your doctor with a problem, contact the hospital at [phone]. 7. Continue all your regular medications unless directed otherwise. I understand the above instructions and have no questions. Signature of Patient or Responsible Adult Escort Date/Time Name of Responsible Adult Escort Signature of Nurse Date/Time Activity:: Activity as Tolerated Diet:: As Tolerated Discharge Orders Discharge Orders: Discharge Order (Routine); Ordered 01/02/20 Ordered By: Liana Douglas DS: Diagnosis Discharge Diagnosis (1) Mild chronic gastritis: Status: Acute (2) Normal colonoscopy: Status: Acute
--- NOTE | 2020-01-02 09:02 | COLE_ITS ---
Date of service: 01/02/20 Time of Service: 10:04 Colonoscopy Report Date of procedure: 01/02/20 Pre-op diagnosis general: Hepatitis C, colon screening Post-op diagnosis procedure note: other (Mild gastritis, normal colon) Procedure: EGD with gastric biopsy Colonoscopy Surgeon: Liana Douglas Anesthesia proc note operative: MAC Indications: This patient presents for her first screening colonoscopy. She has occasional rectal bleeding with a hard stool. No FH colon cancer. Has a history of treated Hep C and presents for EGD to evaluate for possible varices. Procedure Description: The patient was placed in the left lateral position and propofol titrated to sedation. The endoscope was advanced into the esophagus under direct visualization. The scope was passed through the stomach and into the duodenum. There was no duodenitis or ulceration noted. The stomach itself showed mild inflammation in the antrum. Retroflexed view of the fundus and lesser curvature showed no evidence of gastric varices. Routine biopsies were taken from the gastric antrum. The GE junction was inspected and showed no significant stricture, inflammation, masses or Barretts. The scope was slowly withdrawn with no other esophageal lesions found. Digital rectal examination revealed no abnormalities. The scope was advanced to the cecum without difficulty. Her prep was adequate although thin stool lined the colon in places. This was rinsed clean. The ileocecal valve and appe ndiceal orifice were clearly identified. The scope was slowly withdrawn over the course of greater than 6 minutes with no abnormalities seen in the ascending, transverse, descending, sigmoid colon or rectum including on retroflexed view. She was noted to have typical appearing internal hemorrhoids which are the source of bleeding with a firm stool. The patient tolerated the procedure well and was stable to recovery. Plan for routine screening colonoscopy in 10 years or sooner if symptoms indicate.
--- NOTE | 2020-01-02 09:10 | STOM_PTH ---
PATIENT: Lluvia Ayala LOC: PATTI U#:[id number] AGE/SX: 49/F ROOM: RE01/02/[address]: Liana Douglas MD : 1970 BED: DIS: 01/02/2020 SPEC #: [id number] RECD: 01/02/20 12:48 STATUS: KIMBERLY REQ #: [id number] CATRACHO: 01/02/20 09:[address]: Liana Douglas DEPT: Surgical Specimen RECD BY: Tequila Santoro ENTERED: 01/02/20 12:48 SP TYPE: STOMACH OTHR DR: Vivienne Kent John Tissues: 1 - STOMACH BIOPSY Procedures: GROSS AND MICRO LEVEL 4 Comments: [id number]
[2020-01-02 10:24] VITALS: BP 109/66; PULSE 45; RESP 16; TEMP 36.8; O2SAT 98
== END 2020-01-02 11:00 | disposition home or self-care (01) ==
PROVIDERS: PCP Family Medicine; Visit Provider Surgery
PROC: (CPT 43239; principal; 2020-01-02 09:15)
DX: Z12.11 Encounter for screening for malignant neoplasm of colon (principal); K29.50 Unspecified chronic gastritis without bleeding; K64.9 Unspecified hemorrhoids; B18.2 Chronic viral hepatitis C; K74.60 Unspecified cirrhosis of liver
CPT/HCPCS: 43239; G0121; 88305; J2405; J2704

== ENCOUNTER 2020-06-21 12:16 | Emergency (ER) | payer MEDICARE, MEDICAID, SELFPAY ==
[2020-06-21 12:26] VITALS: BP 154/127; PULSE 117; RESP 22; TEMP 36.8; O2SAT 99
[2020-06-21] MEDS: Penicillin V POTASSIUM 500 MG TAB PO (12:45)
[2020-06-21] MEDS: HYDROcodone 5/Acetaminophen 325 TAB PO (12:45)
[2020-06-21 12:46] VITALS: BP 143/90; PULSE 78; RESP 18; O2SAT 100
--- NOTE | 2020-06-21 13:39 | ED.GENADUL_ITS ---
Discharge Plan Disposition Patient Disposition: HOME Condition: Good Discharge Details Clinical Impression: Pain, dental Primary Care Provider: Nicho Aguila ED Provider: Tequila Padgett Home Meds and New Rx's Prescriptions: New penicillin V potassium 500 mg tablet 500 mg PO QID Qty: 40 RF: 0 oxycodone 5 mg capsule 5 mg PO Q6H PRNQty: 4 RF: 0 No Action naproxen sodium [Aleve] 220 mg capsule 440 mg PO BID PRNRF: 0 Discharge Instructions Instructions: Toothache (ED) Additional Instructions: Follow-up with your dentist for further evaluation and management of your dental pain Take antibiotic as prescribed Yogurt daily while on antibiotic We are unable to prescribe additional opiate medication for your dental pain so it is important that your dentist be involved for treatment Take ibuprofen Tylenol as tolerated, you should not take regular Tylenol secondary to your history of hepatitis C Please return earlier should you have pain, fever, worsening pain, or with any new or progressing symptoms Medical Decision Making Patient been previously evaluated here for dental pain I did discuss with patient regarding risk of addiction with opiates and she signed a contract evidence of fractured decay Placed on penicillin and referral to dentist, patient is aware that we cannot write for another prescription for opiate analgesia Risk of addiction discussed No evidence of Danis angina No chest pain or shortness of breath, no stridor Reproducible dental pain on exam Return precautions discussed and patient understanding Differential Diagnosis Differential Diagnosis: Prophylaxis, pedicle fracture, angina, chronic pain Medical Records Medical records reviewed: Yes I reviewed the patient's medical records. HPI This 49-year-old female presents with right upper dental pain that started this morning while she was drinking coffee. She states she is scheduled to have numerous dental extractions with dentures and that the pain started abruptly while she was drinking her coffee. She denies any chest pain or shortness of breath. She denies any dizziness or weakness. She denies fever or chills. The pain is exacerbated with extremes of temperature and chewing. She reportedly took Naprosyn prior to arrival without alleviation of symptoms. Denies pregn tommy. She denies any additional complaints at this time time. General Date/Time Provider Initiated Documentation: 06/21/20 12:27 . Related Data Home Medications Medication Instructions Recorded Confirmed naproxen sodium 220 mg capsule 440 mg PO BID PRN cap 08/27/20 03/01/21 oxycodone 5 mg PO Q6H PRN #4 cap 06/21/20 penicillin V potassium 500 mg PO QID #40 tab 06/21/20 Previous Rx's Medication Instructions Recorded oxycodone 5 mg PO Q6H PRN #4 cap 06/21/20 penicillin V potassium 500 mg PO QID #40 tab 06/21/20 Allergies Allergy/AdvReac Type Severity Reaction Status Date / Time Sulfa (Sulfonamide Allergy Mild Hives Unverified 06/21/20 12:29 Antibiotics) duloxetine AdvReac Severe it Verified 06/21/20 12:29 started fucking with my brain and I had toxic shit NSAIDS (Non-Steroidal AdvReac Mild Contraindic Unverified 06/21/20 12:29 Anti-Inflamma ated tape Allergy Mild clear Uncoded 06/21/20 12:29 hospital tape bees Allergy Uncoded 06/21/20 12:29 General Stated Complaint: DentalOral MARIA A: 3 Review of Systems Narrative: Review of systems negative x7, indicated in HPI PFSH Medical History (Updated 06/21/20 @ 12:45 by INNA Mcintyre) Adjustment disorder Cirrhosis Hepatitis C History of bloody stools History of eye prosthesis left History of substance abuse PTSD (post-traumatic stress disorder) Tobacco dependence Surgical History History of cholecystectomy S/P tubal ligation Traumatic enucleation of left eye Social History (Updated 12/18/19 @ 14:31 by INNA Katz) Smoking/Tobacco Use Status: Current every day Tobacco Type: cigarettes Smoking packs per day: 0.75 Smoking cigarettes per day: 15.0 Smoking risk assessment performed?: Yes Alcohol Intake: former Drug use: Daily Substance use type: marijuana Details: Former substance user (Heroin) Sober since 2014 Current gender identity: female Do you feel safe at home: Yes Do you feel safe in your relationship?: Yes Exam Const General: acute distress [facility] Teeth image: 1. Area of dental fracture and significant decay throughout No evidence of Danis angina, uvula midline, no cough, no soft palate induration, no obvious collection Other: No stridor Eyes Pupils: PERRL Resp Effort & Inspection: normal respiratory effort Cardio Rate: regular rate Neuro General: patient alert and patient oriented x3 Course Vital Signs Vital signs: Vital Signs Temperature 36.8 C 06/21/20 12:26 Pulse 117 H 06/21/20 12:26 Respiratory Rate 22 06/21/20 12:26 Blood Pressure 154/127 H 06/21/20 12:26 Pulse Oximetry 99 06/21/20 12:26 Temperature 36.8 C 06/21/20 12:26 Temperature Source Skin 06/21/20 12:26 Pulse 78 06/21/20 12:46 Respiratory Rate 18 06/21/20 12:46 Respiratory Effort Non-Labored 06/21/20 12:30 Blood Pressure 143/90 H 06/21/20 12:46 Blood Pressure Position Sitting 06/21/20 12:26 Pulse Oximetry 100 06/21/20 12:46 Oxygen Delivery Method Room Air 06/21/20 12:46 Oxygen Flow Rate 0 06/21/20 12:46 Pain Level 10 06/21/20 13:10
== END 2020-06-21 13:11 | disposition home or self-care (01) ==
PROVIDERS: Emergency Provider Physician Assistant; PCP Family Medicine
DX: R68.84 Jaw pain (principal)
CPT/HCPCS: 99283

== ENCOUNTER 2020-06-28 20:12 | Outpatient (REF) | payer MEDICARE, MEDICAID, SELFPAY ==
[2020-06-28 18:38] LABS: HCT 44.1 % (36.0-46.0); HGB 15.2 g/dL (11.2-15.7); MCH 33.3 pg (27.0-33.0); MCHC 34.5 % (32.0-36.0); MCV 96.5 fL (80-95); MPV 11.8 fL (8.0-11.0); Platelet Count 119 10^3/uL (130-400); RBC 4.57 10^6/uL (3.93-5.22); RDW 13.4 % (11.7-14.6); RDW-SD 48.1 fL; WBC 5.73 10^3/uL (4.4-10.8)
[2020-06-28 18:59] LABS: Hemoglobin A1C 5.7 % (<5.7)
[2020-06-28 19:01] LABS: ALT 34 U/L (14-59); AST 24 U/L (15-37); Albumin 4.4 g/dL (3.4-5.0); Alkaline Phosphatase 97 U/L (46-116); Anion Gap 9.9 mmol/L (3-11); BUN 12 mg/dL (7-18); Bilirubin, Total 0.5 mg/dL (0.2-1.0); CO2 27.1 mmol/L (21.0-32.0); CREATININE 0.8 mg/dL (0.55-1.02); Calcium 9.1 mg/dL (8.5-10.1); Chloride 103 mmol/L (98-107); Glucose 100 mg/dL (74-106); Potassium 3.7 mmol/L (3.5-5.1); Sodium 140 mmol/L (136-145); TSH (W/Ref FT4) 1.25 uIU/mL (0.36-3.74); Total Protein 8.4 g/dL (6.4-8.2)
[2020-06-28 19:28] LABS: Calculated LDL 175 mg/dL (<100); Cholesterol 264 mg/dL (<200); Ferritin 96 ng/mL (8-252); HDL Cholesterol 71 mg/dL (40-60); Triglyceride 90 mg/dL (<150)
== END 2020-06-28 20:13 | disposition home or self-care (01) ==
LOC: NCHCN 20:12
PROVIDERS: PCP Family Medicine; Visit Provider Family Medicine
DX: K74.60 Unspecified cirrhosis of liver (principal); F43.23 Adjustment disorder with mixed anxiety and depressed mood; G25.81 Restless legs syndrome
CPT/HCPCS: 80053; 80061; 85027; 82728; 83036; 84443

== ENCOUNTER 2020-09-18 18:08 | Emergency (ER) | payer MEDICARE, MEDICAID, SELFPAY ==
[2020-09-18 18:20] VITALS: BP 138/98; PULSE 90; RESP 20; O2SAT 94
--- NOTE | 2020-09-18 18:41 | W.ED.GENAD ---
Discharge Plan Disposition Patient Disposition: HOME Condition: Stable Discharge Details Clinical Impression: Pain, dental, Infected dental caries Primary Care Provider: Nicho Aguila ED Provider: Xuan Davidson Home Meds and New Rx's Prescriptions: New penicillin V potassium 500 mg tablet 500 mg PO QID 7 Days Qty: 28 RF: 0 Continued acetaminophen [Tylenol] 325 mg Capsule RF: 0 Discharge Instructions Instructions: Dental Caries (ED), Toothache (ED) Additional Instructions: Drink plenty of fluids and get plenty of rest. Take Tylenol as needed directed for pain. Take the oxycodone for pain not relieved with Tylenol. Follow-up with your scheduled appointment with your dentist next month. Return immediately to the emergency department if you develop any worsening or new concerning symptoms. Discharge Data Discharge Physician: Xuan Davidson Medical Decision Making 50-year-old female with a history of chronic dental caries, hepatitis C, cirrhosis, PTSD and former heroin use malnourishment presents for dental pain since this morning. She has extensive dental caries throughout. She has tenderness to palpation to teeth numbers 6 and 7 with tenderness and erythema and edema to mucosa but no evidence of abscess. She states she has appointment for extraction of all her teeth over the next couple months in [place]. She states she was seen here recently for similar dental infection and treated with antibiotics and pain medication and improved. Review of records note that she was treated with Pen V K and oxycodone. Will give 1 dose of penicillin here as well as a few tabs of oxycodone to go. Advised to follow-up with her dentist as scheduled. Usual and customary return precautions given prior to discharge. Medical Records Medical records reviewed: Yes I reviewed the patient's medical records. HPI General Mode of arrival: ambulatory. Date/Time Provider Initiated Documentation: 09/18/20 18:31. Limitations to Documentation: no limitations. Information obtained by: patient. HPI Narrative: Patient is a 50-year-old female with a history of chronic dental pain and caries, hepatitis C, PTSD, cirrhosis presents for dental pain since this morning. She states she has an appointment to have all of her teeth extracted over the next 2 months. She states the pain is severe in her right upper teeth. She denies any known injury. She denies any fever. Related Data Home Medications Medication Instructions Recorded Confirmed acetaminophen [Tylenol] 09/18/20 penicillin V potassium 500 mg PO QID 7 Days #28 tab 09/18/20 Previous Rx's Medication Instructions Recorded penicillin V potassium 500 mg PO QID 7 Days #28 tab 09/18/20 Allergies Allergy/AdvReac Type Severity Reaction Status Date / Time Sulfa (Sulfonamide Allergy Mild Hives Unverified 06/21/20 12:29 Antibiotics) duloxetine AdvReac Severe it Verified 06/21/20 12:29 started fucking with my brain and I had toxic shit NSAIDS (Non-Steroidal AdvReac Mild Contraindic Unverified 06/21/20 12:29 Anti-Inflamma ated tape Allergy Mild clear Uncoded 06/21/20 12:29 hospital tape bees Allergy Uncoded 06/21/20 12:29 General Stated Complaint: DentalOral MARIA A: 4 Review of Systems Constitutional Constitutional: Reports as per HPI, Denies chills and Denies fever(s) Eyes Eyes: Denies blurry vision ENT Ears, Nose, Mouth, and Throat: Reports dental pain, Denies dizziness, Denies sore throat and Denies throat swelling Cardiovascular Cardiovascular: Denies chest pain and Denies dyspnea Respiratory Respiratory: Denies cough and Denies dyspnea Gastrointestinal Gastrointestinal: Denies abdominal pain, Denies diarrhea and Denies vomiting Genitourinary Genitourinary: Denies hematuria and Denies dysuria Musculoskeletal Musculoskeletal: Denies back pain and Denies numbness Integumentary/Breasts Skin/Breast: Denies lesions and Denies rash Neurologic Neurologic: Denies dizziness, Denies localized weakness and Denies numbness Allergic/Immunologic Allergic/Immunologic: Denies throat swelling [facility] Medical History (Updated 09/18/20 @ 18:50 by Xuan Davidson DO) Adjustment disorder Cirrhosis Hepatitis C History of bloody stools History of eye prosthesis left History of substance abuse PTSD (post-traumatic stress disorder) Tobacco dependence Surgical History History of cholecystectomy S/P tubal ligation Traumatic enucleation of left eye Social History (Updated 12/18/19 @ 14:31 by INNA Katz) Smoking/Tobacco Use Status: Current every day Tobacco Type: cigarettes Smoking packs per day: 0.75 Smoking cigarettes per day: 15.0 Smoking risk assessment performed?: Yes Alcohol Intake: former Drug use: Daily Substance use type: marijuana Details: Former substance user (Heroin) Sober since 2015 Current gender identity: female Do you feel safe at home: Yes Do you feel safe in your relationship?: Yes Exam Const General: cooperative and no acute distress HENMT Head: normal to inspection Ears: hearing grossly normal bilaterally, external ears normal and TM's normal bilaterally General nose exam: external nose normal Mouth: oral mucosae normal Teeth and gingiva: caries, poor dentition and other (Multiple missing teeth throughout) Teeth image: 1. Both teeth broken with extensive dental caries, edema and erythema noted to mucosa above the teeth. There is no fluctuant abscess noted. Throat: posterior oropharynx normal Eyes General: appearance normal, both eyes and all related structures Neck Neck: normal visual inspection Resp Effort & Inspection: normal respiratory effort and able to speak in complete sentences Cardio Rate: regular rate Skin General skin exam: no rashes or lesions noted Neuro General: patient alert, patient awake and patient oriented x3 Motor: muscle tone normal throughout Extrem General: normal to inspection and full ROM Psych Appearance: grossly normal Affect: normal affect Course Vital Signs Vital signs: Vital Signs Pulse 90 09/18/20 18:20 Respiratory Rate 20 09/18/20 18:20 Blood Pressure 138/98 H 09/18/20 18:20 Pulse Oximetry 94 09/18/20 18:20 Pulse 90 09/18/20 18:20 Respiratory Rate 20 09/18/20 18:20 Blood Pressure 138/98 H 09/18/20 18:20 Pulse Oximetry 94 09/18/20 18:20 Oxygen Delivery Method Room Air 09/18/20 18:20 Oxygen Flow Rate 0 09/18/20 18:20 Pain Level 10 09/18/20 18:20
[2020-09-18] MEDS: Penicillin V POTASSIUM 500 MG TAB PO (19:14)
[2020-09-18] MEDS: Penicillin V POTASSIUM 500 MG TAB, 4 TABS/BTL PO (19:14)
== END 2020-09-18 19:10 | disposition home or self-care (01) ==
PROVIDERS: Emergency Provider Physician Assistant; PCP Family Medicine
DX: R68.84 Jaw pain (principal); K04.7 Periapical abscess without sinus
CPT/HCPCS: 99283

== ENCOUNTER 2020-10-18 13:17 | Emergency (ER) | payer MEDICARE, MEDICAID, SELFPAY ==
[2020-10-18 13:23] VITALS: BP 131/84; PULSE 93; RESP 20; O2SAT 100
--- NOTE | 2020-10-18 13:36 | ED.GENADUL_ITS ---
Discharge Plan Disposition Patient Disposition: HOME Condition: Stable Discharge Details Clinical Impression: Infected dental caries Primary Care Provider: Nicho Aguila ED Provider: Xuan Davidson Home Meds and New Rx's Prescriptions: New penicillin V potassium 500 mg tablet 500 mg PO QID 7 Days Qty: 28 RF: 0 Continued acetaminophen [Tylenol] 325 mg Capsule RF: 0 Discharge Instructions Instructions: Dental Caries (ED) Additional Instructions: Drink plenty of fluids and get plenty of rest. Take Tylenol as needed and directed for pain. Take the oxycodone for pain not relieved with Tylenol. Your antibiotic prescription has been sent electronically to your pharmacy. Take this antibiotic as directed until finished. Follow-up with your scheduled appointment for your dental surgery next month. Return immediately to the emergency department if you develop any worsening or new concerning symptoms. Discharge Data Discharge Date/Time-TO BE ENTERED AT DEPARTURE: 10/18/20 14:07 Discharge Physician: Xuan Davidson Medical Decision Making 50yo F who presents to the ED w/ a c/o R lower dental pain since this morning. She has extensive dental caries and multiple missing teeth throughout. She had rotting teeth with tenderness to 2 teeth R lower jaw. There is no abscess. She appears uncomfortable and is tearful. No drooling, trismus, submandibular swelling. Will treat with antibiotics. She was given a few tabs of oxycodone. Advised to f/u with her scheduled appointment with her dentist for dental e xtraction next month. Usual and customary return precautions given prior to discharge. Medical Records Medical records reviewed: Yes I reviewed the patient's medical records. HPI General Mode of arrival: ambulatory . Date/Time Provider Initiated Documentation: 10/18/20 13:34 . Limitations to Documentation: no limitations . Information obtained by: patient . HPI Narrative: Pt is a 50yo F who presents to the ED w/ a c/o R lower dental pain since this morning. Pt states she recently saw her dentist and is planning to have extraction of most of her teeth next month. Pt states she had been pain free until this morning when her R lower teeth starting hurting. She denies fever. Pt was last seen here last month for dental pain of other teeth. She denies any new injury. She states she would like antibiotics again as this helped with her last infection. Related Data Home Medications Medication Instructions Recorded Confirmed acetaminophen [Tylenol] 09/18/20 penicillin V potassium 500 mg PO QID 7 Days #28 tab 10/18/20 Previous Rx's Medication Instructions Recorded penicillin V potassium 500 mg PO QID 7 Days #28 tab 10/18/20 Allergies Allergy/AdvReac Type Severity Reaction Status Date / Time Sulfa (Sulfonamide Allergy Mild Hives Unverified 10/18/20 13:26 Antibiotics) duloxetine AdvReac Severe it Verified 10/18/20 13:26 started fucking with my brain and I had toxic shit NSAIDS (Non-Steroidal AdvReac Mild Contraindic Unverified 10/18/20 13:26 Anti-Inflamma ated tape Allergy Mild clear Uncoded 10/18/20 13:26 hospital tape bees Allergy Uncoded 10/18/20 13:26 General Stated Complaint: DentalOral MARIA A: 4 Review of Systems All systems reviewed & are unremarkable except as noted in HPI and below Constitutional Constitutional: Reports as per HPI, Denies chills and Denies fever(s) Eyes Eyes: Denies blurry vision ENT Ears, Nose, Mouth, and Throat: Reports dental pain, Denies dizziness, Denies sore throat and Denies throat swelling Cardiovascular Cardiovascular: Denies chest pain and Denies dyspnea Respiratory Respiratory: Denies cough and Denies dyspnea Gastrointestinal Gastrointestinal: Denies abdominal pain, Denies diarrhea and Denies vomiting Genitourinary Genitourinary: Denies hematuria and Denies dysuria Musculoskeletal Musculoskeletal: Denies back pain and Denies numbness Integumentary/Breasts Skin/Breast: Denies lesions and Denies rash Neurologic Neurologic: Denies dizziness, Denies localized weakness and Denies numbness Allergic/Immunologic Allergic/Immunologic: Denies throat swelling [facility] Medical History (Updated 10/18/20 @ 13:55 by Xuan Davidson DO) Adjustment disorder Cirrhosis Hepatitis C History of bloody stools History of eye prosthesis left History of substance abuse PTSD (post-traumatic stress disorder) Tobacco dependence Surgical History History of cholecystectomy S/P tubal ligation Traumatic enucleation of left eye Social History (Updated 12/18/19 @ 14:31 by INNA Katz) Smoking/Tobacco Use Status: Current every day Tobacco Type: cigarettes Smoking packs per day: 0.75 Smoking cigarettes per day: 15.0 Smoking risk assessment performed?: Yes Alcohol Intake: former Drug use: Daily Substance use type: marijuana Details: Former substance user (Heroin) Sober since 2014 Current gender identity: female Do you feel safe at home: Yes Do you feel safe in your relationship?: Yes Exam Const General: cooperative, healthy appearing and no acute distress HENMT Head: normal to inspection Ears: hearing grossly normal bilaterally, external ears normal and TM's normal bilaterally General nose exam: external nose normal Mouth: oral mucosae normal Teeth and gingiva: poor dentition and other Teeth image: 1. Significant dental caries, teeth tender to palpation and black in color with breakdown. There is mild surrounding erythema and edema but no abscess. Eyes General: appearance normal, both eyes and all related structures Neck Neck: normal visual inspection, no lymphadenopathy, no meningeal signs, trachea midline, supple and No submandibular swelling Resp Effort & Inspection: normal respiratory effort and able to speak in complete sentences Cardio Rate: regular rate Skin General skin exam: no rashes or lesions noted Neuro General: patient alert, patient awake and patient oriented x3 Motor: muscle tone normal throughout Extrem General: normal to inspection and full ROM Psych Appearance: grossly normal Affect: normal affect Course Vital Signs Vital signs: Vital Signs Pulse 93 H 10/18/20 13:23 Respiratory Rate 20 10/18/20 13:23 Blood Pressure 131/84 10/18/20 13:23 Pulse Oximetry 100 10/18/20 13:23 Pulse 93 H 10/18/20 13:23 Respiratory Rate 20 10/18/20 13:23 Respiratory Effort Non-Labored 10/18/20 13:26 Blood Pressure 131/84 10/18/20 13:23 Blood Pressure Position Sitting 10/18/20 13:23 Pulse Oximetry 100 10/18/20 13:23 Pain Level 8 10/18/20 13:26
[2020-10-18] MEDS: Penicillin V POTASSIUM 500 MG TAB PO (14:06)
== END 2020-10-18 14:07 | disposition home or self-care (01) ==
PROVIDERS: Emergency Provider Physician Assistant; PCP Family Medicine
DX: K02.9 Dental caries, unspecified (principal); K04.7 Periapical abscess without sinus
CPT/HCPCS: 99283

== ENCOUNTER 2020-11-11 14:38 | Emergency (ER) | payer MEDICARE, MEDICAID, SELFPAY ==
[2020-11-11 14:49] VITALS: BP 144/81; PULSE 81; TEMP 36.9; O2SAT 98
--- NOTE | 2020-11-11 15:02 | ED.GENADUL_ITS ---
Discharge Plan Disposition Patient Disposition: HOME Condition: Improving Discharge Details Clinical Impression: Odontalgia Primary Care Provider: Nicho Aguila ED Provider: Dada Weaver Home Meds and New Rx's Prescriptions: New ondansetron HCl [Zofran] 4 mg tablet 4 mg PO QID PRN (Reason: nausea and vomiting) Qty: 10 RF: 0 oxycodone 5 mg tablet 5 mg PO Q8H PRN (Reason: pain) Qty: 7 RF: 0 Continued acetaminophen [Tylenol] 325 mg Capsule 500 mg PO Q8H RF: 0 amoxicillin 500 mg Tablet 500 mg PO Q8H RF: 0 No Action oxycodone 5 mg Tablet 5 mg PO Q4H PRNRF: 0 Discharge Instructions Instructions: Toothache (ED) Additional Instructions: May use provided oxycodone as needed for severe breakthrough pain. Resume the prescribed dosing of amoxicillin tomorrow 1 every 8 hours. Home to rest this evening. May use Zofran as needed for nausea. Return to emergency department for any acute concerns. Medical Decision Making This is a 50-year-old female who underwent dental extractions yesterday. She was confused on her instructions and was taking amoxicillin with 2 oxycodone tablets every 4 hours. This resulted in some nausea and emesis. Now with ongoing jaw pain and vomiting. She is afebrile with a blood pressure 144/81. IV access established, patient given fluid bolus, antiemetic, analgesia. Patient's laboratories are reassuring. She is improved following fluids and medications. She will require some ongoing antiemetic and small number of analgesics for home. I consented her for the use of narcotic. She is stable for discharge at this time. Lab Data Lab results reviewed: Yes I reviewed the patient's lab results. Labs: Laboratory Results - last 24 hr 11/11/20 11/11/20 15:45 15:45 WBC 9.10 RBC 4.25 Hgb 13.6 Hct 40.8 MCV 96.0 H MCH 32.0 MCHC 33.3 RDW 14.0 Plt Count 128 L MPV 11.3 H Immature Gran % 0.2 Neutrophils % 66.5 Lymphocytes % 27.3 Monocytes % 5.4 Eosinophils % 0.4 Basophils % 0.2 Nucleated RBC % 0 Absolute Neutrophils 6.05 Absolute Lymphocytes 2.48 Absolute Monocytes 0.49 Absolute Eosinophils 0.04 Absolute Basophils 0.02 Sodium 140 Potassium 3.5 Chloride 103 Carbon Dioxide 27.5 Anion Gap 9.5 BUN 19 H Creatinine 0.8 Estimated GFR/1.73 m2 >= 60.00 Glucose 107 H Calcium 9.2 HPI General Mode of arrival: ambulatory . Date/Time Provider Initiated Documentation: 11/11/20 14:55 . Limitations to Documentation: no limitations . Information obtained by: patient . History of Present Illness 50 year old F presents to the emergency department with the chief complaint of Vomiting after dental procedure, described as moderate, Quality is described as dull, and is localized to the abdomen. Patient reports no radiation. Patient started experiencing this hour(s) and it has been intermittent. No relieving factors improve symptom(s), No exacerbating factors reported . Patient notes denies fever/chills and headaches. Related Data Home Medications Medication Instructions Recorded Confirmed acetaminophen [Tylenol] 500 mg PO Q8H 09/18/20 11/11/20 amoxicillin 500 mg PO Q8H 11/11/20 11/11/20 ondansetron HCl [Zofran] 4 mg PO QID PRN #10 tab 11/11/20 oxycodone 5 mg PO Q4H PRN 11/11/20 11/11/20 oxycodone 5 mg PO Q8H PRN #7 tab 11/11/20 Previous Rx's Medication Instructions Recorded ondansetron HCl [Zofran] 4 mg PO QID PRN #10 tab 11/11/20 oxycodone 5 mg PO Q8H PRN #7 tab 11/11/20 Allergies Allergy/AdvReac Type Severity Reaction Status Date / Time Sulfa (Sulfonamide Allergy Mild Hives Unverified 11/11/20 14:56 Antibiotics) duloxetine AdvReac Severe it Verified 11/11/20 14:56 started fucking with my brain and I had toxic shit NSAIDS (Non-Steroidal AdvReac Mild Contraindic Unverified 11/11/20 14:56 Anti-Inflamma ated tape Allergy Mild clear Uncoded 11/11/20 14:56 hospital tape bees Allergy Uncoded 11/11/20 14:56 General Stated Complaint: GenMedical MARIA A: 3 Review of Systems Narrative: No fever at home. No abdominal pain. Vomited some blood. Able to take liquids and solids by mouth. Notes that she took extra oxycodone and amoxicillin. PFSH Medical History Adjustment disorder Cirrhosis Hepatitis C History of bloody stools History of eye prosthesis left History of substance abuse PTSD (post-traumatic stress disorder) Tobacco dependence Surgical History History of cholecystectomy S/P tubal ligation Traumatic enucleation of left eye Social History Smoking/Tobacco Use Status: Current every day Tobacco Type: cigarettes Smoking packs per day: 0.75 Smoking cigarettes per day: 15.0 Smoking risk assessment performed?: Yes Alcohol Intake: former Drug use: Daily Substance use type: marijuana Details: Former substance user (Heroin) Sober since 2014 Current gender identity: female Do you feel safe at home: Yes Do you feel safe in your relationship?: Yes Exam Narrative Exam Narrative: GEN: awake, alert, oriented 3. Pleasant, well groomed, interactive. HEAD: Normocephalic, atraumatic ENT: Mucous membranes moist, oropharynx mostly edentulous, no active bleeding, External ear exam unremarkable EYES: PERRL, EOMI NECK: Full ROM, no FAVIAN, no menigismus CHEST/RESP: Nontender, clear to auscultation bilateral, no wheeze/rhonchi/rales CARDIOVASCULAR: RRR, no murmur, rub ayan. 2+ Rad pulse bilateral ABDOMEN: Soft, nontender, no mass. +Bowel sounds EXT: Full ROM, no edema, no rash Neuro: Grossly normal neurologic exam, conversant, interactive. Psych: Speech fluent, thoughts congruent, affect normal Course Vital Signs Vital signs: Vital Signs Temperature 36.9 C 11/11/20 14:49 Pulse 81 11/11/20 14:49 Blood Pressure 144/81 H 11/11/20 14:49 Pulse Oximetry 98 11/11/20 14:49 Temperature 36.9 C 11/11/20 14:49 Temperature Source Oral 11/11/20 14:49 Pulse 81 11/11/20 14:49 Respiratory Effort Non-Labored 11/11/20 14:54 Blood Pressure 144/81 H 11/11/20 14:49 Blood Pressure Position Sitting 11/11/20 14:49 Pulse Oximetry 98 11/11/20 14:49 Oxygen Delivery Method Room Air 11/11/20 14:49 Oxygen Flow Rate 0 11/11/20 14:49 Pain Level 8 11/11/20 14:49
[2020-11-11] MEDS: Normal Saline 1,000 ML 1000 ML IV (15:50)
[2020-11-11 15:55] LABS: Abs Immature Grans 0.02 10^3/uL (0.0-0.06); Absolute Basophil Count 0.02 10^3/uL (0.0-0.2); Absolute Eosinophil Count 0.04 10^3/uL (0.0-0.7); Absolute Lymphocyte Count 2.48 10^3/uL (1.2-3.4); Absolute Monocyte Count 0.49 10^3/uL (0.1-0.8); Absolute Neutrophil Count 6.05 10^3/uL (1.2-6.7); Basophils % 0.2; Eosinophils % 0.4; HCT 40.8 % (36.0-46.0); HGB 13.6 g/dL (11.2-15.7); Immature Grans % 0.2; Lymphocytes % 27.3; MCHC 33.3 % (32.0-36.0); MPV 11.3 fL (8.0-11.0); Monocytes % 5.4; Neutrophils % 66.5; Nucleated RBC 0 %; Platelet Count 128 10^3/uL (130-400); RBC 4.25 10^6/uL (3.93-5.22); RDW-SD 49.6 fL
[2020-11-11 16:01] LABS: Anion Gap 9.5 mmol/L (3-11); BUN 19 mg/dL (7-18); CO2 27.5 mmol/L (21.0-32.0); CREATININE 0.8 mg/dL (0.55-1.02); Calcium 9.2 mg/dL (8.5-10.1); Chloride 103 mmol/L (98-107); Glucose 107 mg/dL (74-106); Potassium 3.5 mmol/L (3.5-5.1); Sodium 140 mmol/L (136-145)
[2020-11-11] MEDS: Ondansetron 4 MG/2 ML VIAL IVP (16:37)
[2020-11-11] MEDS: Ketorolac 15 MG/ML VIAL IVP (16:39)
[2020-11-11] MEDS: HYDROmorphone 2 MG/ML VIAL 1 MG IVP (16:41)
[2020-11-11] MEDS: Ondansetron O.D.T. 4 MG TABEF, 3 TABS/BTL PO (17:23)
[2020-11-11 18:03] VITALS: RESP 28
== END 2020-11-11 17:40 | disposition home or self-care (01) ==
PROVIDERS: Emergency Provider Emergency Medicine; PCP Family Medicine
DX: R11.2 Nausea with vomiting, unspecified; T36.0X1A Poisoning by penicillins, accidental (unintentional), initial encounter; R68.84 Jaw pain
CPT/HCPCS: 36415; 80048; 96361; 96374; 96375; 99284; 85025; 99283; J1885; J2405

== ENCOUNTER 2021-08-15 13:30 | Outpatient (REF) | payer MEDICARE, MEDICAID, SELFPAY ==
--- NOTE | 2021-08-15 12:11 | PAPFT_PTH ---
PATIENT: Lluvia Ayala LOC: [facility] U#:[id number] AGE/SX: 51/F ROOM: RE08/15/[address]: Nicho Aguila : 1970 BED: DIS: 08/15/2021 SPEC #: [id number] RECD: 08/15/21 18:07 STATUS: KIMBERLY REQ #: [id number] CATRACHO: 08/15/21 12:[address]: Nicho Aguila DEPT: [facility] Cytology RECD BY: Tequila Santoro Tissues: 1 - CX/ENDOCX FOR PAP SMEARS Procedures: PAP THIN PREP/UVM Screening HPV DNA PROBE Comments: [id number]
[2021-08-15 16:22] LABS: HCT 41.5 % (36.0-46.0); MCH 32.6 pg (27.0-33.0); MCHC 33.7 % (32.0-36.0); MCV 96.7 fL (80-95); MPV 11.5 fL (8.0-11.0); Platelet Count 120 10^3/uL (130-400); RBC 4.29 10^6/uL (3.93-5.22); RDW 13.9 % (11.7-14.6); RDW-SD 49.7 fL; WBC 4.21 10^3/uL (4.4-10.8)
[2021-08-15 16:30] LABS: INR 1.1 (0.9-1.1); Prothrombin Time 10.7 sec (9.3-11.0)
[2021-08-15 17:02] LABS: ALT 31 U/L (14-59); AST 28 U/L (15-37); Albumin 4.2 g/dL (3.4-5.0); Alkaline Phosphatase 104 U/L (46-116); Anion Gap 5.9 mmol/L (3-11); BUN 10 mg/dL (7-18); Bilirubin, Total 0.4 mg/dL (0.2-1.0); CO2 30.1 mmol/L (21.0-32.0); CREATININE 0.9 mg/dL (0.55-1.02); Calcium 9.4 mg/dL (8.5-10.1); Chloride 104 mmol/L (98-107); Glucose 106 mg/dL (74-106); Potassium 4.7 mmol/L (3.5-5.1); Sodium 140 mmol/L (136-145); Total Protein 8.4 g/dL (6.4-8.2)
== END 2021-08-15 13:31 | disposition home or self-care (01) ==
LOC: NCHCN 13:30
PROVIDERS: PCP Family Medicine; Visit Provider Family Medicine
DX: K74.60 Unspecified cirrhosis of liver (principal); Z12.4 Encounter for screening for malignant neoplasm of cervix; Z11.51 Encounter for screening for human papillomavirus (HPV)
CPT/HCPCS: 80053; 85027; 88142; 85610; 87624

== ENCOUNTER 2021-09-10 11:01 | Emergency (ER) | payer MEDICARE, MEDICAID, SELFPAY ==
[2021-09-10 11:12] VITALS: BP 144/88; PULSE 90; RESP 16; TEMP 36.3; O2SAT 98
--- NOTE | 2021-09-10 11:55 | ED.GENADUL_ITS ---
Discharge Plan Disposition Patient Disposition: HOME Condition: Stable Discharge Details Clinical Impression: Muscle strain of right shoulder, Lumbosacral ligament sprain Primary Care Provider: Nicho Aguila ED Provider: Dora Krishnan Home Meds and New Rx's Prescriptions: New diclofenac potassium 25 mg capsule 25 mg PO TID PRN (Reason: pain) 7 Days Qty: 14 0RF Rx Instructions: Take with food No Action acetaminophen [Tylenol] 325 mg Capsule 500 mg PO Q8H Discharge Instructions Instructions: Muscle Strain (ED), Lower Back Exercises (ED) Additional Instructions: Rest, ice, compression, elevation. Alternate ice and heat. Take medications with food as directed. Please take Ibuprofen with food every 4-6 hours as needed for pain and swelling. Follow up with primary care provider in 3-5 days. Return to ED sooner if any worsening or concerns. Increase oral fluids. Referrals: Nicho Aguila [Primary Care Provider] - 1 week Discharge Data Discharge Date/Time-TO BE ENTERED AT DEPARTURE: 09/10/21 12:43 Medical Decision Making 51-year-old female presents to the ER with chief complaint of right shoulder pain and right lower back pain after assisting her roommate to go downstairs. Patient reports that she was helping lift him morning when she felt something give in her lower back. Now she has increased tenderness with abduction of her right shoulder. Pain radiates up into her right lateral neck. Denies any loss of bowel or bladder control no saddle anesthesia. Denies any radiation of the pain to her legs. She has been taking Tylenol at home with little to no relief. Willl give patient a prescription for diclofenac. And will give Oxycodone 5mg PO to go. This text was generated using Silent Circleation system, please disregard any oddities of phrase or misspellings. HPI General Mode of arrival: ambulatory . Date/Time Provider Initiated Documentation: 09/10/21 11:15 . Limitations to Documentation: no limitations . Information obtained by: patient, RN notes reviewed and old records reviewed . HPI Narrative: 51-year-old female presents to the ER with chief complaint of right shoulder pain and right lower back pain after assisting her roommate to go downstairs. Patient reports that she was helping lift him morning when she felt something give in her lower back. Now she has increased tenderness with abduction of her right shoulder. Pain radiates up into her right lateral neck. Denies any loss of bowel or bladder control no saddle anesthesia. Denies any radiation of the pain to her legs. She has been taking Tylenol at home with little to no relief. Related Data Home Medications Medication Instructions Recorded Confirmed acetaminophen 325 mg capsule 500 mg PO Q8H 09/18/20 09/10/21 (Tylenol) diclofenac potassium 25 mg capsule 25 mg PO TID PRN pain 7 days #14 09/10/21 caps Previous Rx's Medication Instructions Recorded diclofenac potassium 25 mg capsule 25 mg PO TID PRN pain 7 days #14 09/10/21 caps Allergies Allergy/AdvReac Type Severity Reaction Status Date / Time Sulfa (Sulfonamide Allergy Mild Hives Unverified 09/10/21 11:14 Antibiotics) duloxetine AdvReac Severe it Verified 09/10/21 11:14 started fucking with my brain and I had toxic shit NSAIDS (Non-Steroidal AdvReac Mild Contraindic Unverified 09/10/21 11:14 Anti-Inflamma ated tape Allergy Mild clear Uncoded 09/10/21 11:14 hospital tape bees Allergy Uncoded 09/10/21 11:14 General Stated Complaint: Orthopedic MARIA A: 4 Review of Systems All systems reviewed & are unremarkable except as noted in HPI and below ENT Ears, Nose, Mouth, and Throat: Reports neck pain Musculoskeletal Musculoskeletal: Reports back pain, Reports arthralgias, Reports limited range of motion, Reports neck pain, Denies numbness, Denies radiating pain into limb and Reports stiffness Neurologic Neurologic: Denies numbness PFSH All Active Problems Pain, dental (Acute) Pain, dental (Acute) Infected dental caries (Acute) Infected dental caries (Acute) Odontalgia (Acute) Muscle strain of right shoulder (Acute) Lumbosacral ligament sprain (Acute) Normal colonoscopy (Acute) Mild chronic gastritis (Acute) Left knee DJD (Acute) Blood in stool (Acute) Altered mental status (Acute) PTSD (post-traumatic stress disorder) (Chronic) History of Surgical Procedure (Chronic) a. Arthroscopy, left knee. Medical History Adjustment disorder Cirrhosis Hepatitis C History of bloody stools History of eye prosthesis left History of substance abuse PTSD (post-traumatic stress disorder) Tobacco dependence Surgical History History of cholecystectomy S/P tubal ligation Traumatic enucleation of left eye Social History Smoking/Tobacco Use Status: Current every day Tobacco Type: cigarettes Smoking packs per day: 0.75 Smoking cigarettes per day: 15.0 Smoking risk assessment performed?: Yes Alcohol Intake: former Drug use: Daily Substance use type: marijuana Details: Former substance user (Heroin) Sober since 2014 Current gender identity: female Do you feel safe at home: Yes Do you feel safe in your relationship?: Yes Exam Narrative Exam Narrative: Constitutional: Alert and oriented x3. Appears stated age. Normal body habitus. Head: Normocephalic, no trauma. Chest: RRR, Normal S1, S2, distal pulses intact. Resp: Lungs clear to auscultation bilaterally, no wheezes, rales, or rhonchi. Abdomen: Soft, non-distended, Normoactive bowel sounds all 4 quads. Musculoskeletal: Normal gait, 5/5 strength to all four extremities. Skin: No suspicious rashes or lesions. Capillary refill less than 2 sec. Neurologic: Cranial nerves II-XII intact. Alert and oriented x 3. Motor: No deficits noted. Sensory: Intact bilaterally all 4 extremities. Reflexes: DTR's intact bilaterally.. Hematologic/Lymphatic: No ecchymosis, no lymphadenopathy. Course Vital Signs Vital signs: Vital Signs Temperature 36.3 C L 09/10/21 11:12 Pulse 90 09/10/21 11:12 Respiratory Rate 16 09/10/21 11:12 Blood Pressure 144/88 H 09/10/21 11:12 Pulse Oximetry 98 09/10/21 11:12 Temperature 36.3 C L 09/10/21 11:12 Temperature Source Temporal Artery Scan 09/10/21 11:12 Pulse 90 09/10/21 11:12 Respiratory Rate 16 09/10/21 11:12 Blood Pressure 144/88 H 09/10/21 11:12 Blood Pressure Position Sitting 09/10/21 11:12 Pulse Oximetry 98 09/10/21 11:12 Oxygen Delivery Method Room Air 09/10/21 11:12 Oxygen Flow Rate 0 09/10/21 11:12 Pain Level 8 09/10/21 11:12
== END 2021-09-10 12:43 | disposition home or self-care (01) ==
PROVIDERS: Emergency Provider Registered Nurse Emergency; PCP Family Medicine
DX: S46.811A Strain of other muscles, fascia and tendons at shoulder and upper arm level, right arm, initial encounter (principal); S33.9XXA Sprain of unspecified parts of lumbar spine and pelvis, initial encounter; X50.0XXA Overexertion from strenuous movement or load, initial encounter
CPT/HCPCS: 99283

== ENCOUNTER → 2021-09-26 02:34 | Outpatient (CLI) | payer MEDICARE, MEDICAID, SELFPAY ==
--- NOTE | 2021-09-26 14:45 | DI.MRI_ITS ---
Exam(s) MR LUMBAR SPINE WO EXAM: MR LUMBAR SPINE WO CLINICAL HISTORY: CHRONIC LBP, M54.5, ASSOCIATED W/TRAUMA, KNOWN OA, WORSE PAST 3-4 MOS. TECHNIQUE: Multiplanar multisequence MRI of the Lumbar spine was performed. CR XR KNEE LT 2V AP,LAT from 12/23/2019 FINDINGS: Bones: The last intervertebral disc space is designated the L5/S1 level for the numbering purpose of this examination. The vertebral body heights are well maintained. Alignment is satisfactory. The si gnal characteristics are unremarkable. Cord: The conus tip ends at the T12 level. It is of normal size and signal intensity. T12-L1: No disc herniations or bulges are present. L1-2: No disc herniations or bulges are present. L2-3: No disc herniations or bulges are present. L3-4: No disc herniations or bulges are present. L4-5: No disc herniations or bulges are present. There are bilateral facet degenerative changes, lef t greater than right. There is mild left neural foraminal encroachment. L5-S1: No disc herniations or bulges are present. There are bilateral facet degenerative changes, le ft greater than right but no significant neural foraminal encroachment Soft tissues: The visualized SI joints and sacrum are well maintained. The paraspinal soft tissues ar e unremarkable. IMPRESSION: No evidence of disc herniation. No evidence of significant spinal stenosis disc bulging. Facet degenerative changes at L4-5 and L5-S1. DATA REPOSITORY:
== END ==
PROVIDERS: PCP Family Medicine; Visit Provider Family Medicine
DX: M54.59 Other low back pain (principal)
CPT/HCPCS: 72148

== ENCOUNTER 2021-09-26 15:23 | Emergency (ER) | payer OTHER, MEDICAID, SELFPAY ==
[2021-09-26 15:25] VITALS: BP 125/73; PULSE 80; RESP 16; TEMP 36.4; O2SAT 96
--- NOTE | 2021-09-26 15:48 | ED.GENADUL_ITS ---
Discharge Plan Disposition Patient Disposition: HOME Condition: Stable Discharge Details Clinical Impression: Lumbosacral ligament sprain Primary Care Provider: Nicho Aguila ED Provider: Juan F Cooper Home Meds and New Rx's Prescriptions: New diclofenac potassium 50 mg tablet 50 mg PO TID PRN (Reason: pain) Qty: 15 0RF Continued acetaminophen [Tylenol] 325 mg Capsule 1,000 mg PO Q8H Discharge Instructions Instructions: Acute Low Back Pain (ED) Additional Instructions: Due to the medication you received in the emergency department please do not take any further NSAIDs (ibuprofen, aspirin, Aleve, or Motrin) or your prescribed medication for at least 8 hours after the injection you received today. After that you may take the prescribed diclofenac but again do not take any udyf-jul-lfidrgs NSAIDs while on this medication. It is very important that you follow-up with your primary care provider for reassessment after he receives the results of the MRI imaging for further definitive care. If you have any of the emergent signs of back pain that were reviewed please return to the emergency department for reassessment. Referrals: Nicho Aguila [Primary Care Provider] - Discharge Data Discharge Date/Time-TO BE ENTERED AT DEPARTURE: 09/26/21 16:09 Medical Decision Making Patient here for back pain. She states that she was here today for an MRI and decided to return to the emergency department due to not being able to obtain her diclofenac due to insurance purposes. Patient denies any new symptoms just states that pain has continued and would like to try this medication for pain relief. LOW risk for ABDOMINAL AORTIC ANEURYSM, CAUDA EQUINA SYNDROME, EPIDURAL MASS LESION, SPINAL STENOSIS, OR HERNIATED DISK CAUSING SEVERE STENOSIS, thus I consider the discharge disposition reasonable. We have discussed the diagnosis and risks, and we agree with discharging home to follow-up with their primary doctor. We also discussed returning to the Emergency Department immediately if new or worsening symptoms occur. We have discussed the symptoms which are most concerning (e.g., saddle anesthesia, urinary or bowel incontinence or retention, changing or worsening pain) that necessitate immediate return. Physical exam is unremarkable beyond pain to palpation of the lumbar spine but mostly tender over the lower paraspinal tissue. After discussion of diagnosis and plan of care patient has no further needs, questions, or concerns and states clear understanding to return to the emergency department for any worsening symptoms. Medical Records Medical records reviewed: Yes I reviewed the patient's medical records. HPI General Mode of arrival: ambulatory . Date/Time Provider Initiated Documentation: 09/26/21 15:34 . Limitations to Documentation: no limitations . Information obtained by: patient and RN notes reviewed . History of Present Illness 51 year old F presents to the emergency department with the chief complaint of back pain, described as moderate, with intensity rated at 8. Quality is described as sharp, and is localized to the back. Patient reports no radiation. Patient started experiencing this week(s) (3) and it has been constant. Rest improves symptom(s), Movement worsens symptoms . Patient notes no other symptoms.. Patient did receive the following treatments prior to arrival, cold therapy, heat therapy and other (Acetaminophen) Related Data Home Medications Medication Instructions Recorded Confirmed acetaminophen 325 mg capsule 1,000 mg PO Q8H 09/18/20 09/26/21 (Tylenol) diclofenac potassium 50 mg tablet 50 mg PO TID PRN pain #15 tabs 09/26/21 Previous Rx's Medication Instructions Recorded diclofenac potassium 50 mg tablet 50 mg PO TID PRN pain #15 tabs 09/26/21 Allergies Allergy/AdvReac Type Severity Reaction Status Date / Time Sulfa (Sulfonamide Allergy Mild Hives Unverified 09/26/21 15:32 Antibiotics) duloxetine AdvReac Severe it Verified 09/26/21 15:32 started fucking with my brain and I had toxic shit NSAIDS (Non-Steroidal AdvReac Mild Contraindic Unverified 09/26/21 15:32 Anti-Inflamma ated tape Allergy Mild clear Uncoded 09/26/21 15:32 hospital tape bees Allergy Uncoded 09/26/21 15:32 General Stated Complaint: Nk/Back Pain MARIA A: 4 Review of Systems Constitutional Constitutional: Denies chills and Denies fever(s) Cardiovascular Cardiovascular: Denies chest pain and Denies dyspnea on exertion Respiratory Respiratory: Denies cough and Denies dyspnea on exertion Gastrointestinal Gastrointestinal: Denies abdominal pain, Denies change in bowel habits, Denies diarrhea, Denies nausea and Denies vomiting Genitourinary Genitourinary: Denies urinary incontinence Musculoskeletal Musculoskeletal: Reports as per HPI and Reports back pain Integumentary/Breasts Skin/Breast: Denies rash and Denies skin pain Neurologic Neurologic: Denies sensory deficit PFSH All Active Problems Pain, dental (Acute) Pain, dental (Acute) Infected dental caries (Acute) Infected dental caries (Acute) Odontalgia (Acute) Muscle strain of right shoulder (Acute) Lumbosacral ligament sprain (Acute) Normal colonoscopy (Acute) Mild chronic gastritis (Acute) Left knee DJD (Acute) Blood in stool (Acute) Altered mental status (Acute) PTSD (post-traumatic stress disorder) (Chronic) History of Surgical Procedure (Chronic) a. Arthroscopy, left knee. Medical History Adjustment disorder Cirrhosis Hepatitis C History of bloody stools History of eye prosthesis left History of substance abuse PTSD (post-traumatic stress disorder) Tobacco dependence Surgical History History of cholecystectomy S/P tubal ligation Traumatic enucleation of left eye Social History Smoking/Tobacco Use Status: Current every day Tobacco Type: cigarettes Smoking packs per day: 0.5 Smoking cigarettes per day: 10.0 Smoking risk assessment performed?: Yes Alcohol Intake: former Drug use: Daily Substance use type: marijuana Details: Former substance user (Heroin) Sober since 2014 marijuana 2-3 times / day for anxiety Current gender identity: female Do you feel safe at home: Yes Do you feel safe in your relationship?: Yes Exam Const General: cooperative and no acute distress Orientation: alert, awake and oriented x3 Neck Neck: normal visual inspection, full ROM and no meningeal signs Resp Effort & Inspection: normal respiratory effort Auscultation: clear to auscultation bilaterally Cardio Rate: regular rate Rhythm: regular rhythm Heart Sounds: S1 normal and S2 normal GI Palpation: no hepatosplenomegaly, no aortic enlargement, no masses and no pulsatile masses Back/Spine/Pelvis Cervical Spine: normal cervical lordosis Thoracic/Lumbar Spine: pain with thoraco-lumbar ROM, paraspinal tenderness, thoraco-lumbar ROM limited and lumbar spinal tenderness Neuro General: patient alert, patient awake and patient oriented x3 DTR's: Rt Patellar: 2+ and Lt Patellar: 2+ Extrem General: normal to inspection, full ROM and capillary refill normal Course Vital Signs Vital signs: Vital Signs Temperature 36.4 C L 09/26/21 15:25 Pulse 80 09/26/21 15:25 Respiratory Rate 16 09/26/21 15:25 Blood Pressure 125/73 09/26/21 15:25 Pulse Oximetry 96 09/26/21 15:25 Temperature 36.4 C L 09/26/21 15:25 Temperature Source Skin 09/26/21 15:25 Pulse 80 09/26/21 15:25 Respiratory Rate 16 09/26/21 15:25 Respiratory Effort 09/26/21 15:34 Blood Pressure 125/73 09/26/21 15:25 Blood Pressure Position Sitting 09/26/21 15:25 Pulse Oximetry 96 09/26/21 15:25 Oxygen Delivery Method Room Air 09/26/21 15:25 Oxygen Flow Rate 0 09/26/21 15:25 Pain Level 8 09/26/21 15:25
[2021-09-26] MEDS: Ketorolac 30 MG/ML VIAL IM (16:08)
== END 2021-09-26 16:09 | disposition home or self-care (01) ==
PROVIDERS: Emergency Provider Nurse Practitioner Family; PCP Family Medicine
DX: S33.8XXA Sprain of other parts of lumbar spine and pelvis, initial encounter (principal); X58.XXXA Exposure to other specified factors, initial encounter
CPT/HCPCS: 96372; 99284; 72148; 99283; J1885

== ENCOUNTER 2021-10-17 11:42 | Outpatient (CLI) | payer OTHER, MEDICAID, SELFPAY ==
--- NOTE | 2021-10-17 10:00 | DI.RAD_ITS ---
Exam(s) XR KNEE LT 3V AP,LAT,ANDREA EXAM: XR KNEE LT 3V AP,LAT,ANDREA CLINICAL HISTORY: LEFT KNEE PAIN. TECHNIQUE: 2D digital imaging was performed. COMPARISON: CR XR KNEE LT 2V AP,LAT from 12/23/2019 FINDINGS: 3 views No evidence of fracture nor prominent joint effusion. There is slight swelling anteriorly is unchang ed. There is significant degenerative change in the lateral compartment again noted. Although there does not appear to be prominent joint space narrowing, there are marginal osteophytes off both the inner and outer aspects of the lateral compartment and there is subarticular findings in the lateral femora l condyle which are either degenerative subarticular cysts or possible osteochondral defects. There is only mild narrowing of the medial compartment and medial compartment does not exhibit presence of osteophytes. Patellofemoral compartment exhibits only mild degenerative change IMPRESSION: Degenerative changes which are again noted be most prominent in the lateral compartment, slightly pro gressed when compared to 12/23/2019. DATA REPOSITORY: RADIATION DOSE DELIVERED:
--- NOTE | 2021-10-17 10:00 | DI.RAD_ITS ---
Exam(s) XR HAND RT COMPLETE EXAM: XR HAND RT COMPLETE CLINICAL HISTORY: RIGHT HAND PAIN. TECHNIQUE: 2D digital imaging was performed. COMPARISON: No exams were available for comparison FINDINGS: 3 views No evidence of acute fracture. No osseous lesions nor erosions. However, there is subluxation of the metacarpophalangeal joint of the thumb. This may indicate an el ement of collateral ligament injury. No radiopaque foreign body IMPRESSION: Subluxation of the metacarpophalangeal joint of the thumb. Suspect collateral ligament injury. If c linically indicated further study with MRI can be performed DATA REPOSITORY: RADIATION DOSE DELIVERED:
--- OUTSIDE RECORDS SUMMARY | 2021-10-17 11:44 | XMS_ITS | Encounter Summary ---
:1970 Author Organization [facility] Address [address] [place] [address] Care Team Providers Name Role Phone Nicho Aguila MD Primary Care Provider Encounter Details Date Type Department Care Team Description 08/16/2021 Lab Requisition [facility] Nicho Aguila MD Encounter for Pathology & K[address] gynecological Laboratory Medicine [place], [place] exam ination (general) - [facility] [id number] (routine) without [address] [facility] [phone] [place] [address] (Work) [phone] Social History Tobacco Use Types Packs/Day Years Used Date Never Assessed Sex Assigned at Date Recorded Not on file documented as of this encounter Plan of Treatment Not on filedocumented as of this encounter Procedures Procedure Name Priority Date/Time Associated Diagnosis Comme nts PAP TEST Today 08/15/2021 12:11 Encounter for Results fo r this EDT gynecological procedure are in examination (general) the re sults (routine) without section. abnormal findings HUMAN PAPILLOMAVIRUS Today 08/15/2021 12:11 Encounter for Re sults for this (HPV) DETECTION-HIGH EDT gynecological proced ure are in RISK TYPES examination (general) the re sults (routine) without section. abnormal findings documented in this encounter Results HUMAN PAPILLOMAVIRUS (HPV) DETECTION-HIGH RISK TYPES (08/15/2021 12:11 EDT) Human Papillomavirus NegativeComment: No Negative [facility] (HPV) Detection-High E6 or E7 mRNA is CENTER LABORATOR Y Types detected from HPV SERVICES types 16,18,31,33,35,39,45 ,51,52,56,58,59,66, and 68 by safety companion mediated amplification. Specimen Pap Test - Cervix and/or Endocervix Performing Organization Address City/State/ZIP Code Phon e Number [facility] [address] [place] [address] SERVICES PAP TEST (08/15/2021 12:11 EDT) Specimens A. Cervix and/or [facility] Endocervix , ThinPrep CENTER Imaging System with LABORATORY Manual Evaluation SERVICES Specimen Adequacy Satisfactory for [facility] Evaluation - CENTER transformation zone LABORATORY component absent SERVICES General Negative for [facility] intraepithelial ATTICA lesion or malignancy LABORATORY SERVICES Attestation . [facility] CENTER signed by LIBBY Hamm CT(ASCP ) on SERVICES 08/19/2021 at 13 27 Clinical History See below [facility] SERVICES HPV The result for the Human Pap illomavirus (HPV) Detection-High Risk Types is Negative. No E6 or E7 mRNA is detected from HPV types 16,18,31,33,35,39,45,51,52,56,58,59,66, and 68 by safety companion mediated [facility] amplification.Testing was pe rformed on specimen [id number] and was resulted on 08/19/2021 1321 EDT by WILI, LAB INSTRUMENT RESULTS IN [facility] SERVICES Performing Lab [facility] LAB [facility] Scanned Images [facility] SERVICES Specimen Pap Test - Cervix and/or Endocervix Performing Organization Address City/State/ZIP Code Phon e Number [facility] [address] [place] [address] SERVICES documented in this encounter Visit Diagnoses Diagnosis Encounter for gynecological examination (general) (routine) without abnormal findings documented in this encounter Care Teams Electrician Chief Relationship Specialty Start Date End Date Nicho Aguila MD PCP - General 01/02/20 [address] [place] [address] documented as of this encounter
--- OUTSIDE RECORDS SUMMARY | 2021-10-17 11:44 | XMS_ITS | Clinical Summary ---
:1970 Author Organization [facility] Address [address] [place] [address] Care Team Providers Name Role Phone Nicho Aguila MD Primary Care Provider Encounters Date Type Specialty Care Team Description 08/16/2021 Lab Requisition Clinical Laboratory Nicho Aguila MD En counter for gynecological examination (ge neral) (routine) witho ut abnormal findin gs from Last 3 Months Social History Tobacco Use Types Packs/Day Years Used Date Never Assessed Sex Assigned at Date Recorded Not on file Plan of Treatment Health Maintenance Due Date Last Done Comments COVID-19 Vaccine (1) 1974 Hepatitis C Screen Completed 11/24/2019 Procedures Procedure Name Priority Date/Time Associated Diagnosis [...] re sults (routine) without section. abnormal findings from Last 3 Months Results PAP TEST (08/15/2021 12:11 EDT) Specimens A. Cervix and/or [facility] Endocervix , ThinPrep CENTER Imaging System with LABORATORY Manual Evaluation SERVICES Specimen Adequacy Satisfactory for [facility] Evaluation - CENTER transformation zone LABORATORY component absent SERVICES General Negative for [facility] intraepithelial CENTER lesion or malignancy LABORATORY SERVICES Attestation . [facility] Electronically CENTER signed by LIBBY Hamm CT(ASCP ) on SERVICES 08/19/2021 at 13 27 Clinical History See below [facility] SERVICES HPV The result for the Human Pap illomavirus (HPV) Detection-High Risk Types is Negative. No E6 or E7 mRNA is detected from HPV types 16,18,31,33,35,39,45,51,52,56,58,59,66, and 68 by debarker operator mediated [facility] amplification.Testing was pe rformed on specimen [id number] and was resulted on 08/19/2021 1321 EDT by WILI, LAB INSTRUMENT RESULTS IN [facility] SERVICES Performing Lab [facility] SERVICES Scanned Images [facility] SERVICES Specimen Pap Test - Cervix and/or Endocervix Performing Organization Address City/State/ZIP Code Phon e Number [facility] [address] [place] [address] SERVICES HUMAN PAPILLOMAVIRUS (HPV) DETECTION-HIGH RISK TYPES (08/15/2021 12:11 EDT) Human Papillomavirus NegativeComment: No Negative [facility] (HPV) Detection-High E6 or E7 mRNA is CENTER LABORATOR Y Types detected from HPV SERVICES types 16,18,31,33,35,39,45 ,51,52,56,58,59,66, and 68 by debarker operator mediated amplification. Specimen Pap Test - Cervix and/or Endocervix Performing Organization Address City/[facility]/ZIP [facility] Phon e Number [facility] [address] [place] [address] SERVICES from Last 3 Months Insurance Payer Benefit Plan / Subscriber ID Effective Phone Address T ype Group Dates MEDICARE MEDICARE A/B [id number] 2012-Prese [address] [place] [address] [place] [id number] 2020-Pres [address] Medicaid [facility] [phone] Lluvia Ayala Personal/Family Self 1970 [address] (Home) [place] [address] Lluvia Ayala Personal/Family Self 1970 [phone] [address] ([address]) [place] [address] Lluvia Ayala Personal/Family Self 1970 [address] (Home) [place] [address] Care Teams Research Environmental Scientist Relationship Specialty Start Date End Date Nicho Aguila MD PCP - General 01/02/20 [address] [facility], [place] [id number]
--- OUTSIDE RECORDS SUMMARY | 2021-10-17 11:45 | XMS_ITS | Encounter Summary ---
:1970 Author Organization [facility] Address [address] [place] [address] Care Team Providers Name Role Phone Staecy Beaulieu MD Primary Care Provider [phone] Nicho Aguila MD Primary Care Provider Encounter Details Date Type Department Care Team Description 11/25/2019 Lab Requisition [facility] Outr Resulting Lab, Pathology & Laboratory Provider [facility] [address] [place], [place] [address] Social History Tobacco Use Types Packs/Day Years Used Date Never Assessed Sex Assigned at Date Recorded Not on file documented as of this encounter Plan of Treatment Not on filedocumented as of this encounter Procedures Procedure Name Priority Date/Time Associated Diagnosis Comme nts HCV RNA DETECT Routine 11/24/2019 13:35 Results f or this QUANT EDT procedure are i n the results section. documented in this encounter Results HCV RNA DETECT QUANT (11/24/2019 13:35 EDT) Pathologist Sig nature HCV RNA Qualitative Undetected Undetected [facility] Specimen Blood - Venous blood (substance) Narrative [facility] - 11/26/2019 13:00 EDT The quantification range of this assay i s 15 IU/mL to 100,000,000 IU/mL. ??Testing was performed on the LILIANE Ampliprep/COB TaqMan HCV v2.0 ([employer] Performing Organization Address City/State/ZIP Code Phon e Number [facility] [address] [place] [address] SERVICES documented in this encounter Visit Diagnoses Not on filedocumented in this encounter Care Teams Publications Production Supervisor Relationship Specialty Start Date End Date Stacey Beaulieu MD PCP - General 03/14/15 01/01/20 Nicho Aguila MD PCP - General 01/02/20 [address] [place] [address] documented as of this encounter
--- OUTSIDE RECORDS SUMMARY | 2021-10-17 11:45 | XMS_ITS | Encounter Summary ---
:1970 Author Organization [facility] Address [address] [place] [address] Care Team Providers Name Role Phone Nicho Aguila MD Primary Care Provider Encounter Details Date Type Department Care Team Description 01/02/2020 Lab Requisition [facility], Encounter for other Pathology & MD general examination Laboratory Medicine [address] [place], [place] [address] [facility] [address] [place], [place] [id number] Social History Tobacco Use Types Packs/Day Years Used Date Never Assessed Sex Assigned at Date Recorded Not on file documented as of this encounter Plan of Treatment Not on filedocumented as of this encounter Procedures Procedure Name Priority Date/Time Associated Diagnosis Comme nts SURGICAL PATHOLOGY Today 01/02/2020 9:10 EDT Encounter for o ther Results for this general examination procedur e are in the results section. documented in this encounter Results SURGICAL PATHOLOGY (01/02/2020 9:10 EDT) Final Diagnosis A. STOMACH, BIOPSY: [facility] - Antral and fundic mucosa with mild reactive (chemica l) gastropathy. CENTER - Negative for Helicobacter pylori microorganism s on H&E stained sections. LABORATORY SERVICES Attestation By the signature [facility] Electronica lly below, the attending CENTER signed by Mirella Donovan, physician certifies LABORATORY Amelia Chaudhari MD on that they have 1) SERVICES 01/05/2020 at 1041 personally conducted a gross and/or microscopic examination of the described specimen(s), and/or personally interpreted the results of laboratory testing of the described specimen(s), and 2) personally rendered or confirmed the above diagnosis. Clinical History Mild gastritis [facility] Gross Description A. [facility] Received in formalin marian d with proper patient identification (initials N, S) and gastric biopsy are 2 brandt-white tissues (0.3 x 0.2 x 0.1 cm and 0.3 x 0.2 x 0.1 cm). Submitted entirely in A1. [place] [facility] MAHSA HICKEY 01/02/2020 18:23 SERVICES Performing Lab [facility]AT[facility] SERVICES Scanned Images [facility] SERVICES Specimen Tissue - Entire stomach (body structure) Performing Organization Address City/State/ZIP Code Phon e Number [facility] [address] [place] [address] SERVICES documented in this encounter Visit Diagnoses Diagnosis Encounter for other general examination documented in this encounter Care Teams Ostrich Farm Worker Relationship Specialty Start Date End Date Nicho Aguila MD PCP - General 01/02/20 [address] [place], [place] [address] documented as of this encounter
--- OUTSIDE RECORDS SUMMARY | 2021-10-17 11:45 | XMS_ITS | Encounter Summary ---
:1970 Author Organization [facility] Address [address] [place] [address] Care Team Providers Name Role Phone Stacey Beaulieu MD Primary Care Provider [phone] Nicho Aguila MD Primary Care Provider Encounter Details Date Type Department Care Team Description 12/30/2019 Lab Requisition [facility] Outr Resulting Lab, Pathology & Laboratory Provider [facility] [address] [place], [place] [id number] Social History Tobacco Use Types Packs/Day Years Used Date Never Assessed Sex Assigned at Date Recorded Not on file documented as of this encounter Plan of Treatment Not on filedocumented as of this encounter Procedures Procedure Name Priority Date/Time Associated Comments Diagnosis DO NOT ORDER Today 12/30/2019 9:34 EDT Results for this STANDALONE - BROAD procedure are in COVID TEST the results section. COVID-19 TESTING Routine 12/30/2019 9:34 EDT Resu lts for this procedure are i n the results section. documented in this encounter Results DO NOT ORDER STANDALONE - BROAD COVID TEST (12/30/2019 9:34 EDT) COVID-19 rt-PCR NEGATIVE Negative [facility] Result Comment: LABORATORY 2019-novel Coronavirus (2019 -nCoV) not detected by the qRT-PCR assay. Consider testing for other respiratory viruses or re-collecting for 2019-nCoV testing. Note: Optimum timing for peak viral levels du ring infections caused by 20 19-nCoV have not been determined. Collection of multiple specimens from the same patient may be necessary to detect the virus. Limitations Positive results are indicat deondre of active infection with SARS-CoV-2 but do not rule out bacterial infection or co-infection with other viruses. The agent detected may not be the definite cause of diseas e. In addition, detection of viral RNA may not indicate the presence of infectious virus or that SARS-CoV-2 is the causative agent for clinical symptoms. Negative results do not prec lude SARS-CoV-2 infection and should not be used as the sole basis for patient management decisions. Negative results must be combined with clinical observations, patient his tory, and epidemiological in formation. False negative results may also occur if amplification inhibitors are present in the specimen or if inadequate numbers of organisms are present in the specimen. Op timum specimen types and harris ing for peak viral levels during infections caused by SARS-CoV-2 have not been fully determined. Collection of multiple specimens (types and time points) from the same patient may be necessary to detect the virus. The test was validated for [facility] with upper respiratory specimens obtained via nasopharyngeal or oropharyngeal swabs in VTM, UTM, M4, M5, M6, saline, and MTM media. The performance of this test has not be en established for other spe cimens. Specimens collected using other FDA recommended Specimen Collection Materials listed in the FDA COVID-19 [employer] communication (July 17, 2019) are pr ocessed with the caveat that they were not all validated for use with this test and the result must be interpreted in this context. Furthermore, a false negative results may occur if a specimen is improperly collected, transported or handled. If the virus mutates in the RT-PCR target region, SARS-CoV-2 may not be detected or may be detected less predictably. Inhibitors or other types of interference may produce a false negative result. An interference study evaluating the effect of common cold medications was not performed. This test is not FDA-cleared but its performance characteristics were established by our CLIA-certified, CAP-accredited, high complexity laboratory in accordance with CLIA regulations, [employer] (CAP) guidel zulema (Jul 10, 2019), and FDA guidance (Jun 21, 2019). This test is only for use un john the Food and Drug Administration's Emergency Use Authorization. Specimen Swab - Entire nasopharynx (body structur e) Performing Organization Address City/State/ZIP Code Phon e Number [facility] [place], [place] COVID-19 TESTING (12/30/2019 9:34 EDT) [facility] COVID-19 rt-PCR NEGATIVE Negative [facility] Result Comment: LABORATORY 2019-novel Coronavirus (2019 -nCoV) not detected by the qRT-PCR assay. Consider testing for other respiratory viruses or re-collecting for 2019-nCoV testing. Note: Optimum timing for peak viral levels du ring infections caused by 20 -nCoV have not been determined. Collection of multiple specimens from the same patient may be necessary to detect the virus. Limitations Positive results are indicat deondre of active infection with SARS-CoV-2 but do not rule out bacterial infection or co-infection with other viruses. The agent detected may not be the definite cause of diseas e. In addition, detection of viral RNA may not indicate the presence of infectious virus or that SARS-CoV-2 is the causative agent for clinical symptoms. Negative results do not prec lude SARS-CoV-2 infection and should not be used as the sole basis for patient management decisions. Negative results must be combined with clinical observations, patient his tory, and epidemiological in formation. False negative results may also occur if amplification inhibitors are present in the specimen or if inadequate numbers of organisms are present in the specimen. Op timum specimen types and harris ing for peak viral levels during infections caused by SARS-CoV-2 have not been fully determined. Collection of multiple specimens (types and time points) from the same patient may be necessary to detect the virus. The test was validated for [facility] with upper respiratory specimens obtained via nasopharyngeal or oropharyngeal swabs in VTM, UTM, M4, M5, M6, saline, and MTM media. The performance of this test has not be en established for other spe cimens. Specimens collected using other FDA recommended Specimen Collection Materials listed in the FDA COVID-19 [employer] communication (July 17, 2019) are pr ocessed with the caveat that they were not all validated for use with this test and the result must be interpreted in this context. Furthermore, a false negative results may occur if a specimen is improperly collected, transported or handled. If the virus mutates in the RT-PCR target region, SARS-CoV-2 may not be detected or may be detected less predictably. Inhibitors or other types of interference may produce a false negative result. An interference study evaluating the effect of common cold medications was not performed. This test is not FDA-cleared but its performance characteristics were established by our CLIA-certified, CAP-accredited, high complexity laboratory in accordance with CLIA regulations, [employer] (CAP) guidel zulema (Jul 10, 2019), and FDA guidance (Jun 21, 2019). This test is only for use un john the Food and Drug Administration's Emergency Use Authorization. Performing Lab [facility] LABORATORY SERVICES Specimen Swab Performing Organization Address City/State/ZIP Code Phon e Number [facility] [address] [place] [address] SERVICES [facility] [place], [place] documented in this encounter Visit Diagnoses Not on filedocumented in this encounter Care Teams Blast Setter Relationship Specialty Start Date End Date Stacey Beaulieu MD PCP - General 03/14/15 01/01/20 Nicho Aguila MD PCP - General 01/02/20 [address] [place] [address] documented as of this encounter
== END 2021-10-17 11:43 | disposition home or self-care (01) ==
LOC: DIORS 11:43
PROVIDERS: PCP Family Medicine; Referring Provider Family Medicine; Visit Provider Physician Assistant
DX: M17.12 Unilateral primary osteoarthritis, left knee (principal); S63.641A Sprain of metacarpophalangeal joint of right thumb, initial encounter; S63.218A Subluxation of metacarpophalangeal joint of other finger, initial encounter; X58.XXXA Exposure to other specified factors, initial encounter
CPT/HCPCS: 73562; 99213; 73130

== ENCOUNTER 2021-11-07 15:22 | Emergency (ER) | payer OTHER, MEDICAID, SELFPAY ==
[2021-11-07 15:25] VITALS: BP 140/79; PULSE 67; RESP 16; TEMP 36.7; O2SAT 98
--- NOTE | 2021-11-07 16:32 | ED.GENADUL_ITS ---
Discharge Plan Disposition Patient Disposition: HOME Condition: Stable Discharge Details Clinical Impression: Pain of left thumb Primary Care Provider: Nicho Aguila ED Provider: Dora Krishnan Home Meds and New Rx's Prescriptions: New tramadol 50 mg tablet 50 mg PO Q8H PRN (Reason: pain) Qty: 3 0RF No Action acetaminophen [Tylenol] 325 mg Capsule 1,000 mg PO Q8H diclofenac potassium 50 mg tablet 50 mg PO TID PRN (Reason: pain) Qty: 15 0RF Discharge Instructions Instructions: Tramadol (By mouth), Arthralgia (ED) Additional Instructions: Please take the tramadol as directed for moderate to severe pain. Take with food. Do not operate heavy machinery with this medication. Keep your previously scheduled appointment. Keep thumb splinted. Referrals: Nicho Aguila [Primary Care Provider] - Discharge Data Discharge Date/Time-TO BE ENTERED AT DEPARTURE: 11/07/21 16:44 Medical Decision Making 51 year old female presents with request for pain medication for a lacerated tendon to her left thumb which occurred 2 weeks ago. She has an appt on the with [facility] hand surgery. She has been taking Tylenol with little to no relief. No evidence of induration or cellulitis. Patient given tramadol. Instructed her to keep her appointment. Patient discharged. HPI General Mode of arrival: ambulatory . Date/Time Provider Initiated Documentation: 11/07/21 15:39 . Limitations to Documentation: no limitations . Information obtained by: patient and RN notes reviewed . HPI Narrative: 51-year-old female presents to the ER with chief complaint of left thumb pain s tatus post a tendon injury and laceration which occurred a week ago. She was seen at [facility] and had a referral for [facility]. She reports she has an appointment with [facility] hand surgery on the . She has decreased extension of her thumb. No significant surrounding induration or erythema of the suture site. There is no intact sutures in place. She is reporting that she has been taking Tylenol with little to no relief and can no longer deal with the pain. She is requesting something stronger. She has a past medical history of cirrhosis, hepatitis C, PTSD tobacco dependence. Related Data Home Medications Medication Instructions Recorded Confirmed acetaminophen 325 mg capsule 1,000 mg PO Q8H 09/18/20 11/07/21 (Tylenol) diclofenac potassium 50 mg tablet 50 mg PO TID PRN pain #15 tabs 09/26/21 11/07/21 tramadol 50 mg tablet 50 mg PO Q8H PRN pain #3 tabs 11/07/21 Previous Rx's Medication Instructions Recorded diclofenac potassium 50 mg tablet 50 mg PO TID PRN pain #15 tabs 09/26/21 tramadol 50 mg tablet 50 mg PO Q8H PRN pain #3 tabs 11/07/21 Allergies Allergy/AdvReac Type Severity Reaction Status Date / Time Sulfa (Sulfonamide Allergy Mild Hives Unverified 11/07/21 15:29 Antibiotics) duloxetine AdvReac Severe it Verified 11/07/21 15:29 started fucking with my brain and I had toxic shit NSAIDS (Non-Steroidal AdvReac Mild Contraindic Unverified 11/07/21 15:29 Anti-Inflamma ated tape Allergy Mild clear Uncoded 11/07/21 15:29 hospital tape bees Allergy Uncoded 11/07/21 15:29 General Stated Complaint: Laceration MARIA A: 5 Review of Systems Musculoskeletal Musculoskeletal: Reports as per HPI and Reports other (Thumb pain) PFSH All Active Problems Pain of left thumb (Acute) Rupture of radial collateral ligament of right thumb (Acute) MCP subluxation (Acute) Pain, dental (Acute) Pain, dental (Acute) Infected dental caries (Acute) Infected dental caries (Acute) Odontalgia (Acute) Normal colonoscopy (Acute) Mild chronic gastritis (Acute) Left knee DJD (Acute) Blood in stool (Acute) Altered mental status (Acute) PTSD (post-traumatic stress disorder) (Chronic) History of Surgical Procedure (Chronic) a. Arthroscopy, left knee. Medical History Adjustment disorder Cirrhosis Hepatitis C History of bloody stools History of eye prosthesis left History of substance abuse PTSD (post-traumatic stress disorder) Tobacco dependence Surgical History History of cholecystectomy S/P tubal ligation Traumatic enucleation of left eye Social History Smoking/Tobacco Use Status: Current every day Tobacco Type: cigarettes Smoking packs per day: 0.5 Smoking cigarettes per day: 10.0 Smoking risk assessment performed?: Yes Alcohol Intake: former Drug use: Daily Substance use type: marijuana Details: Former substance user (Heroin) Sober since 2014 marijuana 2-3 times / day for anxiety Current gender identity: female Do you feel safe at home: Yes Do you feel safe in your relationship?: Yes Exam Extrem Left upper extremity: hand (Left thumb has a previously sutured laceration noted to the dorsal aspect. ) Hand/finger images: 1. Previously sutured wound, no surrounding induration or erythema or signs of infection. Absent extension of the thumb. Course Vital Signs Vital signs: Vital Signs Temperature 36.7 C 11/07/21 15:25 Pulse 67 11/07/21 15:25 Respiratory Rate 16 11/07/21 15:25 Blood Pressure 140/79 11/07/21 15:25 Pulse Oximetry 98 11/07/21 15:25 Temperature 36.7 C 11/07/21 15:25 Temperature Source Temporal Artery Scan 11/07/21 15:25 Pulse 67 11/07/21 15:25 Respiratory Rate 16 11/07/21 15:25 Respiratory Effort 11/07/21 15:30 Blood Pressure 140/79 11/07/21 15:25 Blood Pressure Position Sitting 11/07/21 15:25 Pulse Oximetry 98 11/07/21 15:25 Oxygen Delivery Method Room Air 11/07/21 15:25 Oxygen Flow Rate 0 11/07/21 15:25 Pain Level 5 11/07/21 15:25
== END 2021-11-07 16:44 | disposition home or self-care (01) ==
PROVIDERS: Emergency Provider Registered Nurse Emergency; PCP Family Medicine
DX: M79.645 Pain in left finger(s) (principal); G89.18 Other acute postprocedural pain
CPT/HCPCS: 99283

== ENCOUNTER 2021-11-09 13:42 | Outpatient (REF) | payer OTHER, MEDICAID, SELFPAY ==
[2021-11-09 15:36] LABS: ALT 25 U/L (14-59); AST 27 U/L (15-37); Albumin 3.8 g/dL (3.4-5.0); Alkaline Phosphatase 101 U/L (46-116); Anion Gap 9.3 mmol/L (3-11); BUN 12 mg/dL (7-18); Bilirubin, Total 0.2 mg/dL (0.2-1.0); CO2 25.7 mmol/L (21.0-32.0); CREATININE 0.8 mg/dL (0.55-1.02); Calcium 9.2 mg/dL (8.5-10.1); Chloride 104 mmol/L (98-107); Glucose 132 mg/dL (74-106); Potassium 3.9 mmol/L (3.5-5.1); Sodium 139 mmol/L (136-145); Total Protein 8.4 g/dL (6.4-8.2)
== END 2021-11-09 13:43 | disposition home or self-care (01) ==
LOC: NCHCN 13:42
PROVIDERS: PCP Family Medicine; Visit Provider Family Medicine
DX: K74.60 Unspecified cirrhosis of liver (principal)
CPT/HCPCS: 80053

== ENCOUNTER → 2021-11-15 02:53 | Outpatient (CLI) | payer OTHER, MEDICAID, SELFPAY ==
--- NOTE | 2021-11-15 07:45 | DI.MRI_ITS ---
Exam(s) MR LOWER JOINT LT WO EXAM: MR LOWER JOINT LT WO CLINICAL HISTORY: PAIN, lt knee DJD, M17.12, M25.562. TECHNIQUE: Multiplanar multisequence MRI was performed. COMPARISON: CR XR KNEE LT 3V AP,LAT,ANDREA from 10/17/2021 FINDINGS: BONES: There is no fracture or contusion pattern. JOINTS: In the lateral femoral tibial joint, there is marked thinning of the articular cartilage, ost eophytes and subchondral cysts consistent with osteoarthritis. There is a small joint effusion. TENDONS: Extensor mechanism: Unremarkable. Medial retinaculum: Unremarkable. Lateral retinaculum: Unremarkable. Popliteus: Unremarkable. MUSCLES: Unremarkable. MENISCI: The medial meniscus is unremarkable. There is a decrease in size of the posterior horn of t he lateral meniscus. Degenerative signal is seen in the body and posterior horn of the lateral menis cus. SOFT TISSUES: Unremarkable. LIGAMENTS: Anterior Cruciate: Unremarkable. Posterior Cruciate: Unremarkable. Medial Collateral:Unremarkable. Lateral Collateral: Unremarkable. OTHER: IMPRESSION: 1. Marked degenerative changes in the knee particularly the lateral femoral tibial joint. 2. Decreased size and abnormal signal seen in the body and posterior horn of the lateral meniscus. T he signal is suggestive of degenerative changes. The decreased size may reflect an old tear and/or d egeneration. 3. No evidence of a ligament tear. DATA REPOSITORY:
== END ==
PROVIDERS: PCP Family Medicine; Visit Provider Student in an Organized Health Care Education/Training Program
DX: M17.12 Unilateral primary osteoarthritis, left knee (principal)
CPT/HCPCS: 73721

== ENCOUNTER → 2021-12-23 10:22 | Outpatient (BNVA) | payer OTHER, MEDICAID, SELFPAY | PROVIDERS: PCP Family Medicine; Referring Provider Family Medicine; Visit Provider Student in an Organized Health Care Education/Training Program | DX: M17.12 Unilateral primary osteoarthritis, left knee (principal) | CPT/HCPCS: 99214 ==

== ENCOUNTER 2022-02-02 13:43 | Outpatient (CLI) | payer OTHER, MEDICAID, SELFPAY ==
--- NOTE | 2022-02-02 13:00 | DI.RAD_ITS ---
Exam(s) XR KNEE LT 1V XR STANDING ALIGNMENT EXAM: XR STANDING ALIGNMENT CLINICAL HISTORY: left knee DJD. TECHNIQUE: 2D digital imaging was performed. Five images were obtained. COMPARISON: CR XR KNEE LT 3V AP,LAT,ANDREA from 10/17/2021 FINDINGS: BONES: The hips are well maintained. There is periarticular spurring at the lateral femoral tibial j oints of both knees. There is a small effusion in the left knee. The ankles are well maintained.The re is no significant leg length discrepancy. SOFT TISSUE: Normal. IMPRESSION: Bilateral osteoarthritis of the knees. DATA REPOSITORY: RADIATION DOSE DELIVERED:
== END 2022-02-02 13:44 | disposition home or self-care (01) ==
LOC: DIORS 13:43
PROVIDERS: PCP Family Medicine; Referring Provider Family Medicine; Visit Provider Physician Assistant
DX: M17.12 Unilateral primary osteoarthritis, left knee (principal); Z01.818 Encounter for other preprocedural examination
CPT/HCPCS: 73560; 77073

== ENCOUNTER 2022-02-13 02:34 | Outpatient (CLI) | payer OTHER, MEDICAID, SELFPAY ==
[2022-02-13 11:02] LABS: HCT 39.3 % (36.0-46.0); HGB 13.9 g/dL (11.2-15.7); MCH 33.3 pg (27.0-33.0); MCHC 35.4 % (32.0-36.0); MCV 94 fL (80-95); MPV 11.1 fL (8.0-11.0); RBC 4.17 10^6/uL (3.93-5.22); RDW 13.7 % (11.7-14.6); RDW-SD 47.5 fL; WBC 5.17 10^3/uL (4.4-10.8)
[2022-02-13 11:18] LABS: Platelet Count 78 10^3/uL (130-400)
[2022-02-13 11:33] LABS: Anion Gap 8.8 mmol/L (3-11); BUN 16 mg/dL (7-18); CO2 27.2 mmol/L (21.0-32.0); CREATININE 0.9 mg/dL (0.55-1.02); Calcium 9.4 mg/dL (8.5-10.1); Chloride 103 mmol/L (98-107); Estimated GFR 76.92 (mL/min/1.73m2); Glucose 111 mg/dL (74-106); Potassium 3.9 mmol/L (3.5-5.1); Sodium 139 mmol/L (136-145)
== END 2022-02-13 02:35 | disposition home or self-care (01) ==
LOC: LBO 02:34
PROVIDERS: PCP Family Medicine; Visit Provider Student in an Organized Health Care Education/Training Program
DX: M17.12 Unilateral primary osteoarthritis, left knee (principal); Z01.818 Encounter for other preprocedural examination
CPT/HCPCS: 36415; 80048; 85027

== ENCOUNTER 2022-03-22 05:46 | Day surgery (SDC) | payer OTHER, MEDICAID, SELFPAY ==
[2022-03-22] VITALS (15 sets, daily range): BP systolic 82–126; BP diastolic 47–89; PULSE 44–76; RESP 12–22; TEMP 36.2–37.1; O2SAT 94–99; BMI 19.5
[2022-03-22] MEDS: Acetaminophen 500 MG TAB 1000 MG PO (06:40)
[2022-03-22] MEDS: Lactated Ringers 1,000 ML 80 ML IV (06:40)
[2022-03-22] MEDS: Gabapentin 300 MG CAP PO (06:40)
[2022-03-22] MEDS: Celecoxib 200 MG CAP 400 MG PO (06:40)
--- NOTE | 2022-03-22 06:49 | W.ANESPRE ---
General Info Date of Service Date Performed: 03/22/22 Height: 5 ft 6 in Weight: 54.8 kg Body Mass Index (BMI): 19.5 Surgical Procedure: Operation Date: 03/22/22 07:40 Proposed Procedure Side Surgeon p Knee Total Arthroplasty Left Mahesh Quinteros MD Meds Allergies and Home Medications Allergies Allergy/AdvReac Type Severity Reaction Status Date / Time Sulfa (Sulfonamide Allergy Mild Hives Verified 03/22/22 06:00 Antibiotics) duloxetine AdvReac Severe it Verified 03/22/22 06:00 started fucking with my brain and I had toxic shit NSAIDS (Non-Steroidal AdvReac Mild Contraindic Verified 03/22/22 06:00 Anti-Inflamma ated tape Allergy Mild clear Uncoded 03/21/22 08:37 hospital tape bees Allergy Uncoded 03/21/22 08:37 Home Medication Medication Instructions Recorded pregabalin 25 mg capsule 25 mg PO DAILY PRN 12/23/21 acetaminophen 500 mg tablet 1,000 mg PO BID 03/21/22 alprazolam 1 mg tablet (Xanax) 1 mg PO PRN PRN 03/21/22 Current Visit Medications: Current Medications Generic Name Dose Route Start Last Admin Trade Name Freq PRN Reason Stop Dose Admin Acetaminophen 1,000 mg 03/22/22 06:00 03/22/22 06:40 Acetaminophen 500 Mg Tab PO 1,000 mg PREOP MYESHA Administration Celecoxib 400 mg 03/22/22 06:00 03/22/22 06:40 Celecoxib 200 Mg Cap PO 400 mg PREOP MYESHA Administration Gabapentin 300 mg 03/22/22 06:00 03/22/22 06:40 Gabapentin 300 Mg Cap PO 300 mg PREOP MEYSHA Administration Tranexamic Acid 1,000 mg/ 60 mls @ 360 mls/hr 03/22/22 06:00 Sodium Chloride IVPB 03/22/22 18:00 PREOP MYESHA Ringer's Solution 1,000 mls @ 80 mls/hr 03/22/22 06:00 03/22/22 06:40 IV 04/20/22 23:59 80 mls/hr INFUSION MYESHA Administration Cefazolin Sodium/Dextrose 2 gm in 50 mls @ 100 mls/hr 03/22/22 06:00 Ancef Duplex IVPB 04/20/22 23:59 PREOP MYESHA IV Miscellaneous Supplies 1 each 03/22/22 06:00 Iv Access IV 04/20/22 23:59 DIRECTED MYESHA Sodium Chloride 0 ml 03/22/22 06:00 Normal Saline Flush 10 Ml Syr IV 04/20/22 23:59 PRN PRN Sodium Chloride 0 ml 03/22/22 06:00 Normal Saline 10 Ml Vial IJ 04/20/22 23:59 DIRECTED PRN Sterile Water 0 ml 03/22/22 06:00 Water,Injection,Sterile 10 Ml Vial IJ 04/20/22 23:59 DIRECTED PRN PFSH Active Problems Active Problems: Problem Status Onset Code Altered mental status R41.82 PTSD (post-traumatic stress disorder) F43.10 Left knee DJD M17.12 Mild chronic gastritis K29.50 Normal colonoscopy Odontalgia K08.89 MCP subluxation S63.219A Rupture of radial collateral ligament of right thumb S63.641A Lumbosacral spondylosis without myelopathy M47.817 Medical History Medical History (Updated 03/21/22 @ 08:49 by Jazmin Ramirez RN) Adjustment disorder Anxiety Chronic low back pain Chronic pain syndrome Cirrhosis Fatigue Hepatitis C Patient reports completed treatment around 2016 History of bloody stools History of eye prosthesis left History of nephrolithiasis History of substance abuse Left eye pain Opioid dependence in remission Osteoarthritis Prosthetic eye globe left prosthetic eye PTSD (post-traumatic stress disorder) Restless leg Screening for breast cancer Tobacco dependence Surgical History Surgical History (Updated 02/02/22 @ 13:15 by Twila Diaz) History of cholecystectomy Laceration of left thumb with tendon involvement Extensor tendon Treated at [facility] [place] S/P tubal ligation Status post arthroscopy of left knee Traumatic enucleation of left eye Tobacco Smoking/Tobacco Use Status: Current every day Tobacco Type: cigarettes Smoking packs per day: 0.5 Smoking cigarettes per day: 10 Alcohol Alcohol Intake: former Substance Use Substance use: Daily Substance use type: marijuana Details: Former substance user (Heroin) Sober since 2014 marijuana 2-3 times / day for anxiety Vital Signs and Lab Results Vital Signs Most Recent Vital Signs in EMR: Most Recent Vital Signs Temp Pulse Resp BP Pulse Ox 36.8 C 76 16 120/89 98 03/22/22 06:01 03/22/22 06:01 03/22/22 06:01 03/22/22 06:01 03/22/22 06:01 Lab Results Blood Type / Crossmatch: No Data to Display Complete Blood Count: No Data to Display Complete Metabolic Panel: No Data to Display Liver Function Panel: No Data to Display Coagulation Panel: No Data to Display Cardiac Panel: No Data to Display Arterial Blood Gas: No Data to Display Venous Blood Gas: No Data to Display Pancreas Panel: No Data to Display Thyroid Panel: No Data to Display Infectious Disease: No Data to Display Blood Cultures: No Data to Display Toxicology Panel: No Data to Display Panel: No Data to Display Anesthesia Assessment and Plan Anesthesia History Personal History: No History of Anesthesia Complications Family History: No Family History of Anesthesia Complications Exercise Tolerance Exercise Tolerance: Metabolic Equivalents>4 Pertinent Negatives Pertinent Negatives: No Symptoms of GERD Cardiac & Pulmonary Exam Cardiac Exam: Normal S1/S2 Heart Sounds Pulmonary Exam: Clear Bilateral Breath Sounds Implantable Cardiac Device Does patient have a Pacemaker or an ICD?: No Airway Exam Known Difficult Airway: No Mallampati Class: 1 Mouth Opening: Normal (> 3cm) Thyromental Distance: Greater than 3 cm Neck Range of Motion: Full ROM Neck Circumference: Normal Teeth Condition: Normal Dentition ASA Classification ASA Score: ASA 3 Emergency Case?: No NPO Status NPO Status: NPO Clears >2 hours, Solids >8 hours Status Status: Not Relevant due to Medical History Anesthesia Plan Resuscitation Status: Full Code Anesthesia Technique: Spinal Anesthesia Airway Planned: Natural Airway Pain Management: Surgeon and patient request nerve block Monitors Used: Standard Monitors
--- NOTE | 2022-03-22 07:13 | HPE_ITS ---
Assessment and Plan Assessment and plan (1) Left knee DJD: Status: Chronic Assessment and plan: Lluvia is a 51-year-old who has known arthritis about the left knee. She has failed other nonoperative options and is here today for knee replacement. I had a long discussion in regards to surgical replacement of the knee. I went over in detail the possible complications of knee replacement. These include but are not limited to bleeding, infection, pain, stiffness, weakness, damage to nerves, damage to vessels, damage to muscle and tendon, fracture, leg length inequality, wound healing complications, instability, component loosening, and blood clot. Questions were answered. I again expressed that this is a surgery to improve functional quality of life. After a review of the presented information and risks, Lluvia desired to proceed. History of Present Illness History of Present Illness Chief Complaint: Left Knee Pain/Arthritis Narrative: Lluvia is a 51-year-old who have seen previously for left knee arthritis. Please see the previous office notes for complete detailed history. She has had ongoing issues with the left knee. She underwent a left knee arthroscopic surgery in the past by Dr. Zaragoza. She has had continued pain about the left knee despite nonoperative treatment options and further imaging has shown that arthritis is her primary pathology about the left knee. Given the ongoing issues she has elected for operative treatment in the form of a knee replacement to the left knee. She denies any significant changes to her medical profile. She denies chest pain or shortness of breath. She denies fevers or chills. She has had no recent sick contacts. Review of Systems All systems reviewed & are unremarkable except as noted in HPI and below PFSH All Active Problems Altered mental status (Acute) PTSD (post-traumatic stress disorder) (Chronic) Left knee DJD (Chronic) Mild chronic gastritis (Acute) Normal colonoscopy (Acute) Odontalgia (Acute) MCP subluxation (Acute) Rupture of radial collateral ligament of right thumb (Acute) Lumbosacral spondylosis without myelopathy (Acute) Medical History Adjustment disorder Anxiety Chronic low back pain Chronic pain syndrome Cirrhosis Fatigue Hepatitis C Patient reports completed treatment around 2017 History of bloody stools History of eye prosthesis left History of nephrolithiasis History of substance abuse Left eye pain Opioid dependence in remission Osteoarthritis Prosthetic eye globe left prosthetic eye PTSD (post-traumatic stress disorder) Restless leg Screening for breast cancer Tobacco dependence Surgical History History of cholecystectomy Laceration of left thumb with tendon involvement Extensor tendon [place] [facility] [place] tubal ligation Status post arthroscopy of left knee Traumatic enucleation of left eye Social History Smoking/Tobacco Use Status: Current every day Tobacco Type: cigarettes Smoking packs per day: 0.5 Smoking cigarettes per day: 10.0 Smoking risk assessment performed?: Yes Alcohol Intake: former Drug use: Daily Substance use type: marijuana Details: Former substance user (Heroin) Sober since 2014 marijuana 2-3 times / day for anxiety Current gender identity: female Do you feel safe at home: Yes Do you feel safe in your relationship?: Yes Meds Allergies and Home Medications Allergies Allergy/AdvReac Type Severity Reaction Status Date / Time Sulfa (Sulfonamide Allergy Mild Hives Verified 03/22/22 06:00 Antibiotics) duloxetine AdvReac Severe it Verified 03/22/22 06:00 started fucking with my brain and I had toxic shit NSAIDS (Non-Steroidal AdvReac Mild Contraindic Verified 03/22/22 06:00 Anti-Inflamma ated tape Allergy Mild clear Uncoded 03/21/22 08:37 hospital tape bees Allergy Uncoded 03/21/22 08:37 Home Medications Medication Instructions Recorded Confirmed Type pregabalin 25 mg capsule 25 mg PO DAILY PRN 12/23/21 03/22/22 History alprazolam 1 mg tablet (Xanax) 1 mg PO PRN PRN 03/21/22 03/22/22 History acetaminophen 500 mg tablet 1,000 mg PO Q8H PRN pain #90 tabs 03/22/22 Rx aspirin 81 mg tablet,delayed 81 mg PO BID 30 days #60 tabs 03/22/22 Rx release dexamethasone 4 mg tablet 4 mg PO DAILY #2 tabs 03/22/22 Rx docusate sodium 100 mg capsule 100 mg PO BID #30 caps 03/22/22 Rx (Colace) meloxicam 15 mg tablet 15 mg PO DAILY #30 tabs 03/22/22 Rx oxycodone 5 mg tablet 5 mg PO Q4H PRN severe 03/22/22 Rx post-operative pain #18 tabs pantoprazole 40 mg tablet,delayed 40 mg PO DAILY #14 tabs 03/22/22 Rx release Exam Resp Effort & Inspection: normal respiratory effort Auscultation: clear to auscultation bilaterally Cardio Rate: regular rate Rhythm: regular rhythm Extrem Other: Evaluation the left knee shows no overlying skin changes. No concerning features for infection. Results Last Vital Signs Temp 36.8 C 03/22/22 06:01 Pulse 76 03/22/22 06:01 Resp 16 03/22/22 06:01 BP 120/89 03/22/22 06:01 Pulse Ox 98 03/22/22 06:01
--- NOTE | 2022-03-22 07:16 | DSE_ITS ---
Date of service: 03/22/22 Time of Service: 13:36 DS: Diagnosis Discharge Diagnosis (1) Left knee DJD: Status: Chronic Discharge Plan Disposition Patient Disposition: HOME Condition: Good Discharge Details Reason For Visit: Left knee DJD Attending Provider: Mahesh Quinteros Primary Care Provider: Nicho Aguila Home Meds and New Rx's Prescriptions: New acetaminophen 500 mg tablet 1,000 mg PO Q8H PRN Qty: 90 0RF Rx Instructions: Take two tablets up to every 8 hours as needed for pain aspirin 81 mg tablet,delayed release (DR/EC) 81 mg PO BID 30 Days Qty: 60 0RF docusate sodium [Colace] 100 mg capsule 100 mg PO BID Qty: 30 0RF dexamethasone 4 mg tablet 4 mg PO DAILY Qty: 2 0RF Rx Instructions: Take one tablet once daily for two days meloxicam 15 mg tablet 15 mg PO DAILY Qty: 30 1RF Rx Instructions: Take one tablet daily for pain and inflammation oxycodone 5 mg tablet 5 mg PO Q4H PRN (Reason: severe post-operative pain) Qty: 18 0RF Rx Instructions: Take one tablet up to every 4 hours as needed for severe pain pantoprazole 40 mg tablet,delayed release (DR/EC) 40 mg PO DAILY Qty: 14 0RF Continued pregabalin 25 mg capsule 25 mg PO DAILY PRN alprazolam [Xanax] 1 mg Tablet 1 mg PO PRN PRN Label Comments: prior to procedures Discontinued acetaminophen 500 mg Tablet 1,000 mg PO BID Discharge Instructions Additional Instructions: Total Knee Discharge Instructions Activity: The most important activity is to walk and to work on gentle motion (both flexion and extension). You should try to take short walks a few times a day. It is important that when resting you work on keeping the knee straight. Avoid putting a pillow behind the knee as this will encourage flexion. Work on range of motion exercises as provided by Physical Therapy. - Start outpatient physical therapy within 2 weeks. - You should wear the TRISTIAN hose on both legs for 2 weeks. You may remove these at night. You may also use any compression sock in place of the TRISTIAN hose. - Utilize [employer] to review exercises, see videos on exercises and obtain basic information pertaining to your surgery and your recovery. Dressing: Remove the Roman wrap by 2 days after your surgery and put on the TRISTIAN stocking given to you from the hospital. Keep the surgical dressing (underneath the ROMAN wrap) in place for at least one week. After the first week it may be removed and replaced with light gauze and tape or nothing. The wound and dressing may get wet after 3 days but avoid soaking the dressing or otherwise it will need to be changed. Many people prefer covering the dressing with cling wrap (saran wrap) to minimize it from getting soaked. If it gets wet, just pat dry. If it starts to peel off then it will need to be changed. Medications: - You should take Tylenol and anti-inflammatory Meloxicam as your primary pain control medications. If the Meloxicam is too expensive or not covered, please call the office for another alternative (Advil/Ibuprofen or Naproxen/Aleve) - You have been prescribed a stronger pain medication Oxycodone for breakthrough pain, take as needed as prescribed. - You have also been prescribed a stomach acid reduction agent Pantoprozole to help reduce stomach acid and reflux. - You will be taking Aspirin 81mg twice a day for DVT prevention unless instructed otherwise. - You have also been prescribed Decadron to take to control post-operative nausea and pain. You will start this tomorrow. - If you have constipation you should take Colace (which has been prescribed) or Miralax (which you may purchase [id number]). It takes most people 3-4 days to have a bowel movement. Follow-up: 2 weeks If you have any acute concerns or questions, please do not hesitate to contact the office at [phone]. You may contact Dr. Quinteros with any questions after hours through the hospital at [phone] or on his cell phone at [phone]. Stand Alone Forms: Anesthesia Discharge Inst., Anes.Nerve Block Instructions, Es Daniel (DSU) Referrals: Mahesh Quinteros MD [ [facility] STAFF PHYSICIAN] - Equipment/Supplies: Walker Activity:: Elevate Remove Dressings/Wound Care:: Do Not Remove Shower/Bathe:: Cover Activity:: Activity as Tolerated Equipment/Supplies:: Walker Diet:: As Tolerated DS: Summary Time Spent with Patient providing and/or coordinating discharge services: Less than 30 minutes Status at Discharge Functional status at discharge: uses cane/walker Overall status at discharge: patient is progressing back to baseline Mental Status: mental status grossly normal Speech and Movement: speech and movement normal Mood: congruent mood Affect: normal affect Exam Psych Mental Status: mental status grossly normal Speech and Movement: speech and movement normal Mood: congruent mood Affect: normal affect DS: Data Vitals/I&O Vitals and I&O: Vital Signs Temperature 98.2 F 03/22/22 06:01 Pulse 76 03/22/22 06:01 Pulse Rhythm Regular 03/22/22 06:01 Respiratory Rate 16 03/22/22 06:01 Respiratory Depth Normal 03/22/22 06:01 Blood Pressure 120/89 03/22/22 06:01 Pulse Oximetry 98 03/22/22 06:01 Oxygen Delivery Method Room Air 03/22/22 06:01 Oxygen Flow Rate 0 03/22/22 06:01 Pain Level 7 03/22/22 06:01 Intake & Output 03/21/22 03/21/22 03/22/22 11:59 23:59 11:59 Weight 120 lb 13.013 oz PFSH All Active Problems Altered mental status (Acute) PTSD (post-traumatic stress disorder) (Chronic) Left knee DJD (Chronic) Mild chronic gastritis (Acute) Normal colonoscopy (Acute) Odontalgia (Acute) MCP subluxation (Acute) Rupture of radial collateral ligament of right thumb (Acute) Lumbosacral spondylosis without myelopathy (Acute) Medical History Adjustment disorder Anxiety Chronic low back pain Chronic pain syndrome Cirrhosis Fatigue Hepatitis C Patient reports completed treatment around 2017 History of bloody stools History of eye prosthesis left History of nephrolithiasis History of substance abuse Left eye pain Opioid dependence in remission Osteoarthritis Prosthetic eye globe left prosthetic eye PTSD (post-traumatic stress disorder) Restless leg Screening for breast cancer Tobacco dependence Surgical History History of cholecystectomy Laceration of left thumb with tendon involvement Extensor tendon Treated at [facility] S/P tubal ligation Status post arthroscopy of left knee Traumatic enucleation of left eye Social History Smoking/Tobacco Use Status: Current every day Tobacco Type: cigarettes Smoking packs per day: 0.5 Smoking cigarettes per day: 10.0 Smoking risk assessment performed?: Yes Alcohol Intake: former Drug use: Daily Substance use type: marijuana Details: Former substance user (Heroin) Sober since 2014 marijuana 2-3 times / day for anxiety Current gender identity: female Do you feel safe at home: Yes Do you feel safe in your relationship?: Yes
[2022-03-22] MEDS: ceFAZolin 2 GM/50 ML BAG IVPB (07:30)
--- NOTE | 2022-03-22 07:57 | W.ANESNERVE ---
Nerve Block Single Injection Procedure Date and Time Date Performed: 03/22/22 Procedure Start: 07:25 Location Where Procedure Performed Procedure Location: Day Surgery Unit Reason Performed: Postoperative Analgesia Requesting Provider: Mahesh Quinteros Timeout Performed Timeout Performed: Yes Monitoring Used ECG, Blood Pressure, SpO2 and See EMR for corresponding vital signs Sterility Sterility: Hand Hygiene, Surgical Cap, Surgical Mask, Sterile Gloves and Chlorhexidine Sedation Given During Procedure Sedation Given (Indicate Dose Given): Versed IV Dose:: 2mg Patient Mental Status Patient Mental Status: Awake Nerve Block 1st Nerve Block: Laterality: Left Block Type: Adductor Canal Needle / Catheter Used: 100mm SonoPlex II Local Anesthetic Bolus (Indicate Dose Given): Lidocaine used for local infiltration of skin, Injected in 3-5ml increments after negative blood aspiration and Bupivacaine 0.25% Dose:: 15ml Additives (Indicate Dose Given): None Ultrasound: Sterile probe cover and gel used Ultrasound Image Saved?: Yes Nerve Stimulator: Not Used Paresthesia: None Procedure Tolerated: No Complications and Patient tolerated well Procedure Outcome: Successful Performed By: Akira Mazariegos
[2022-03-22] MEDS: fentaNYL 100 MCG/2 ML VIAL IVP ×2 (09:50→09:58)
[2022-03-22] MEDS: LORazepam 2 MG/ML VIAL 0.5 MG IVP (09:52)
--- NOTE | 2022-03-22 12:16 | W.PM.OP ---
Date of service: 03/22/22 Time of Service: 09:00 Operative Note Operative Note DATE OF PROCEDURE: 03/22/22 PRE-OP DIAGNOSIS: Left Knee Arthritis POST-OP DIAGNOSIS: same PROCEDURE: Left Total Knee Arthroplasty with Computer Assisted Intraoperative Navigation and Intraoperative Use of kinetic balance sensor SURGEON: Mahesh Quinteros JUNIOR SYSTEMS ENGINEER: Twila Diaz ANESTHESIA TYPE: General LMA/ETT Refer to Anesthesia Record ESTIMATED BLOOD LOSS: 200 PATHOLOGY: none sent COMPLICATIONS: None Patient was transported to: PACU Patient's condition: stable Implants: 1. Depuy Attune Cementless Cruciate Retaining Femoral Component, Size 4 2. Depuy Attune Cementless Rotating Platform Tibial Component, Size 3 3. Depuy Attune 4x6mm CR, RP Poly 4. Depuy Attune Patellar Component, Size 35 Indications: I have seen Lluvia in clinic for symptoms of knee arthritis, confirmed with radiographic findings. She has exhausted nonoperative methods and was having significant limitations in daily function and desired better function and less pain. I discussed the technical details of a knee replacement. I explained the risks of the procedure to include, but not limited to, bleeding, infection, pain, stiffness, fracture, damage to nerves and vessels, damage to muscles and tendons, loosening, need for repeat procedure, blood clot and cardiopulmonary demise. Despite these risks, Lluvia elected to proceed. Findings: There was significant signs of arthritis throughout the knee involving all 3 compartments but worst, posterolaterally. Procedure Description: Lluvia was greeted in the preoperative holding area where the correct side was identified and marked. The consent was reviewed with the patient and signed. The history and physical was updated. All questions were answered. Preoperative mediacations were administered: Acetaminophen 1000mg, Celebrex 400mg, Gabapentin 300mg, and Oxycontin 10mg. An adductor canal block was then administered by the anesthesia team in the PACU. She was taken back to the operating room. A general anesthetic was administered. The patient was placed into the supine position on the operating room table. A nonsterile tourniquet was placed high onto the leg but only used for cementing. Posts were placed for positioning during the procedure. All bony prominences were well padded. Prophylactic antibiotics in the form of Cefazolin were administered. 1g of Tranxemic Acid was given intravenously within 30 minutes of incision. The left leg was then prepped with Chloraprep and draped in a standard fashion with impervious stockinette and extremity drape with Iodine impregnated skin protection. A timeout to confirm correct identity, side and site, procedure, allergies, anesthesia, and medical concerns was performed. With the knee in some flexion, a midline incision was made overlying the knee. Full thickness skin flaps were raised once the extensor mechanism was encountered. These were raised medially and laterally. Any bleeding was controlled with electrocautery. Once the extensor mechanism was fully exposed, a medial parapatellar arthrotomy was performed in a flexed position. All bleeding from the arthrotomy and the geniculate arteries was coagulated. A medial subperiosteal peel was performed with electrocautery to the midcoronal plane. The fat pad was removed while keeping the patellar tendon protected. The anterior distal femur synovium was removed for later visualization. The ACL and PCL were resected and the anterior horn of the lateral meniscus was transected. The knee was then flexed with the patella everted. A single starting pin was then placed 1cm anterior to the PCL insertion and the notch in the direction of the femoral head. The [employer] computer navigation device was applied over the pin. It was oriented to be in line with the epicondylar axis and the trochlear groove. It was then pinned into place. The navigation computer was then turned on and calibrated. The distal femur cut was set at 0 degrees varus/valgus and 3 degrees flexion. The distal femur cutting guide then was positioned for a 9mm cut. The distal femur was cut with an oscillating saw while protecting the soft tissues. The tibia was then addressed. The OrthoAlign device was placed over the tibial tubercle and medial tibia and secured into position. Once again, OrthoAlign was calibrated and then set for a 2 degrees varus/valgus cut and 5 degrees of posterior slope. With this locked into position, the cut thickness stylus was used to assess cut thickness. The lateral side, most involved side, was set for a 4mm cut. This was then held in position and pinned into place with 2 additional pins and a cross pin for stability. The medial and lateral collateral ligaments were protected and the cut was performed. With this completed, it was assessed and noted to be of appropriate dimensions. The guide and OrthoAlign was removed. A spacer block was inserted and the knee was brought into extension. The 6mm spacer block provided full extension, without hyperextension and with stability of both the medial and lateral collateral ligaments was assessed. The pins from the femur and the tibia were then removed. The distal femur was then sized. The anterior stylus was placed onto the lateral ridge of the anterior femur. This indicated a size 4 femur. Using the OrthoAlign kinetic balance spacer the extension gap was checked and seem to measure 17 mm both medially and laterally. The knee was then brought into 90 degrees of flexion and the balance spacer was once again applied over the tibia and to the posterior femoral condyles. The device was once again used to set rotation and obtain a 16mm flexion gap. This demonstrated a need for a 9 mm posterior cut which was assembled onto the about spacer and then positioned onto the distal femur. 2 pins were placed through the guide. The 4-in-1 cutting guide was the placed. The spacer block was inserted underneath the cutting guide and stability was confirmed in 90 degrees of flexion. An ricky wing was used to confirm appropriate position of the anterior cut to avoid notching. This cutting guide was ensured to be flush on the cut surface and then pinned into place with headed pins. While protecting the soft tissues, quad tendon, and collateral ligaments, the anterior and posterior cuts were performed with a saw. The central two pins were removed and the posterior and anterior chamfers were cut next. The notch-cutting guide was placed. This was pinned to lateralize the femoral component as much as possible while keeping it flush on the cut surface. This was then pinned into position. A saw was used to make the notch cut. A rasp smoothed the cut surfaces. A trial posterior stabilized femoral component was then inserted, impacted down to the cut surfaces, and the lug holes were drilled. A provisional trial tibial component was placed and the knee was brought through range of motion. There was noted to be excellent extension and flexion. There was no significant instability. The patella was tracking without thumbs. The tibial cut surface was fully exposed. The medial and lateral menisci were removed. The tibia was then sized as a 3. The tibia had been previously marked during trialing to correspond to the center of the tibial component to help with rotation. The trial was aligned to this fabi, approximately rotated to the medial 1/3rd of the tibial tubercle. The trial was pinned into place. The tibia was prepared with a reamer and a keel punch. The knee was then brought into extension and the patella was measured as 26mm. Using the patellar clamp and cut guide, this was resected to a flat surface with at least 13mm of thickness remaining. The size 35mm patella fit the best. This was oriented and then clamped into position. The lugs were drilled. The trial components were removed. The final components, except for the polyethylene were opened on the back table. The periosteal and capsular tissues, especially posteriorly, around the knee were then systematically injected with a periarticular cocktail consisting of 246mg of Ropivacaine, 0.5mg of Epinephrine, 0.08mg of Clonidine, and 30mg of Ketorolac, diluted to 100cc. The knee was thoroughly irrigated with a pulse lavage and dried. On the back table, with the implants opened, the cement was mixed. One batch of cement was prepared with vacuum assistance. Cement was manually impacted into the cut surface of the patella and the patellar button was clamped into position and held. Then the cementless tibial component was aligned onto the prepared tibial surface to make sure there is no interposed soft tissue. With the lugs lined up this was malleted into position. It was checked in multiple positions to be down against the cut surface of the bone. The 4x6mm CR/RP poly was then inserted. The femur was then impacted after lining the lugs up. The knee was brought into extension. The knee was then thoroughly irrigated with Surgiphor Betadine solution. It was allowed to sit in the knee for 3 minutes before being irrigated out with saline. After the cement had finally cured, approximately 15min, the clamp was removed from the patella and the knee was taken through range of motion. There was excellent balance and ROM of the knee. The capsule was then reapproximated with a No. 1 Vicryl at multiple locations. The capsule was finally closed with a No. 2 Stratafix, barbed suture. Deep tissues were then reapproximated with 0 Vicryl and 2-0 Vicryl. The skin was closed with a running 3-0 Monocryl in a subcuticular fashion. This was reinforced with skin glue. A Mepilex silver dressing was applied along with a [id number] JESSY wrap. A CryoCuff was applied. Lluvia was transferred to the hospital bed without difficulty an suffering no apparent complication. Lluvia has a good prognosis. Physical therapy will start today and without restrictions, weight-bearing as tolerated. Aspirin 81mg BID will be used for DVT prophylaxis.
--- NOTE | 2022-03-22 12:47 | W.ANESPOSTOP ---
Postoperative Evaluation Date, Time and Location Date Performed: 03/22/22 Time Performed: 12:47 Patient Location: Day Surgery Unit Vital Signs Most Recent Imported Vital Signs: Most Recent Vital Signs Temp Pulse Resp BP Pulse Ox 36.7 C 47 L 16 95/59 L 95 03/22/22 11:42 03/22/22 11:42 03/22/22 11:42 03/22/22 11:42 03/22/22 11:42 Pain Score Most Recent Pain Score: Most Recent Pain Score Pain Level 0 03/22/22 11:42 Assessment Mental Status: Awake (Alert & Oriented to Patient Baseline) Airway and Respiratory Function: Patent airway with normal (patient baseline) respiratory exam Cardiovascular Function: Hemodynamically Stable Hydration Status: Adequately Hydrated Nausea & Vomiting: No Nausea or Vomiting Pain: Pt. Denies Any Pain Peripheral Nerve Block: Regional nerve block not resolved at time of post operative discharge
--- NOTE | 2022-03-22 12:56 | IN_ITS ---
Date of service: 03/22/22 Time of Service: 12:56 PT Notes Visit Reasons: Left knee DJD Physical Therapy Day Surgery Initial Evaluation Date: 03/22/2022 Referring Doctor: INNA Mares PT Orders: PT CONSULT: Precautions: S/P Ortho Surgery Patient Profile/Admitting Diagnosis: Pat is a 51-year-old female with degenerative joint disease of the left knee and is status post left total knee arthroplasty on postoperative day 0. PMHX: All Active Problems? Altered mental status (Acute) PTSD (post-traumatic stress disorder) (Chronic) Left knee DJD (Chronic) Mild chronic gastritis (Acute) Normal colonoscopy (Acute) Odontalgia (Acute) MCP subluxation (Acute) Rupture of radial collateral ligament of right thumb (Acute) Lumbosacral spondylosis without myelopathy (Acute) Medical History? Adjustment disorder Anxiety Chronic low back pain Chronic pain syndrome Cirrhosis Fatigue Hepatitis C Patient reports completed treatment around 2017History of bloody stools History of eye prosthesis leftHistory of nephrolithiasis History of substance abuse Left eye pain Opioid dependence in remission Osteoarthritis Prosthetic eye globe left prosthetic eye PTSD (post-traumatic stress disorder) Restless leg Screening for breast cancer Tobacco dependence Surgical History? 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 Equipment Owned/DME: None Subjective: Complains of tightness in the back of the left knee. Denies pain at rest but did report of a 5/10 pain in the L knee which the nurse has been notified about. Objective: General Observation: Supine in stretcher. JESSY wraps to L LE. TEDS to R knee. Cryocuff to L knee. Mental Status: Alert and oriented x 4. Appears very motivated to walk, somewhat impulsive. Pain: 5/10 in the L knee with ambulation ROM: Right Lower Extremity: Hip flexion WFL. Hip abduction WFL. Knee flexion WFL. Ankle dorsiflexion WFL. Ankle plantarflexion WFL. Left Lower Extremity: Hip flexion WFL. Hip abduction WFL. Knee flexion 10 degrees to 90. Knee extension -10 degrees. Ankle dorsiflexion WFL. Ankle plantarflexion WFL. Strength: Right Lower Extremity: Hip flexors 5/5. Hip abductors 5/5. Knee flexors 5/5. Knee extensors 5/5. Ankle dorsiflexors 5/5. Ankle plantarflexors 5/5. Left Lower Extremity:Hip flexors 5/5. Hip abductors 5/5. Knee flexors 3-/5. Knee extensors 3-/5. Ankle dorsiflexors 5/5. Ankle plantarflexors 5/5. Sensation: Some remaining numbeness in the gluteal and procximal posterior thigh area Bed Mobility/Transfers: Supine to sit indepentent Sit to stand supervision Stand to sit supervision Bed to chair stand by assist Gait: Tolerated level surface ambulation 150 feet using front wheel walker with step through gait pattern with report of 5/10 in the left knee at the end of the walk. Good quad activation. No shortness of breath. Denies headache, chest pain, and lightheadedness throughout session. Stairs: Patient was instructed and trained in safely negotiating 12 x 4-inch steps and 8 x 6 inch steps using 2 single-point canes with standby assist provided. Balance: Static Sitting: Normal Dynamic Sitting: Normal Static Standing: Good Dynamic Standing: Fair Special Tests: Mobility Limitations Standardized Measure [facility] AM-PAC 6 clicks Basic Mobility Inpatient Short Form: Raw Score: 24 CMS Score: 0% deficit Informed Consent/Education: Patient instructed in purpose of PT consult. Packet containing [] exercise protocol has been given to patient. Education and training on initial set of exercises that can be done at home have been completed with patient. Assessment: Lluvia requires use of a front wheeled walker for mobility ADL performance in order to maximize independence and reduce fall risk at home. She has been trained with the use of 2 single-point canes while negotiating stairs to prepare her for discharge to home today.Patient presents with clinical signs and symptoms consistent with current/admitting diagnoses that have resulted to mobility limitations, gait instability, generalized weakness, and impairment of motor control as demonstrated by the following impairment level findings: 1. Decreased strength to left knee major muscle groups 2. Impaired standing balance 3. Limitation of joint range of motion in left knee Impairments are contributing to the following functional limitations: 1. Inability to safely ambulate without assistive device 2. Increase completion time for mobility ADL performance 3. Increased fall risk Patient is assessed as a 13773 moderate complexity based on the following: History: 51-year-old female with impairment level findings, functional limitations, and past medical history as indicated above Examination: Demonstrable impairment in strength, balance, and mobility level with underlying impairments and functional limitations as documented above Presentation: Evolving Decision Makin moderate complexity Goals: N/A. PT evaluation and 1-2 treatment sessions only for functional mobility training using recommended AD and for HEP instruction. Plan of Care/Treatment Plan: N/A. PT evaluation and 1-2 treatment session only for functional mobility training using recommended AD and for HEP instruction. DISCHARGE RECOMMENDATIONS: Patient will benefit from outpatient physical therapy services in order to optimize functional mobility outcomes and facilitate return to independent community ambulation without an assistive device. TREATMENT CODE/TIME: 77866 x 20 minutes, 19307 x 15 minutes beginning at 12:56 PM. Thank you for the opportunity to participate in the care of this patient. April Mai PT, DPT, CLT [facility] [place], [place]
== END 2022-03-22 14:10 | disposition home or self-care (01) ==
PROVIDERS: PCP Family Medicine; Visit Provider Student in an Organized Health Care Education/Training Program
PROC: (CPT 27447; principal; 2022-03-22 07:30)
DX: M17.12 Unilateral primary osteoarthritis, left knee (principal); F11.21 Opioid dependence, in remission; K74.60 Unspecified cirrhosis of liver; G89.4 Chronic pain syndrome; F17.210 Nicotine dependence, cigarettes, uncomplicated
CPT/HCPCS: 20985; 27447; C1776; 76942; 97162; 97530; J0690; J1100; J2060; J2250; J2370; J2405; J2704; J3010

== ENCOUNTER 2022-03-26 13:54 | Emergency (ER) | payer OTHER, MEDICAID, SELFPAY ==
[2022-03-26 14:10] VITALS: BP 115/71; PULSE 107; RESP 24; TEMP 35.9; O2SAT 100
[2022-03-26] MEDS: HYDROmorphone 2 MG/ML SYR 1 MG IVP (15:16)
--- NOTE | 2022-03-26 15:41 | W.ED.GENAD ---
Discharge Plan Disposition Patient Disposition: Home Condition: Stable Discharge Details Clinical Impression: Post-op pain Primary Care Provider: Nicho Aguila ED Provider: Tequila Padgett Home Meds and New Rx's Prescriptions: New promethazine 25 mg tablet 25 mg PO Q6H PRNQty: 14 0RF Continued pregabalin 25 mg capsule 25 mg PO DAILY PRN gabapentin 300 mg capsule 300 mg PO QHS Qty: 14 0RF alprazolam [Xanax] 1 mg Tablet 1 mg PO PRN PRN Label Comments: prior to procedures acetaminophen 500 mg tablet 1,000 mg PO Q8H PRN Qty: 90 0RF Rx Instructions: Take two tablets up to every 8 hours as needed for pain aspirin 81 mg tablet,delayed release (DR/EC) 81 mg PO BID 30 Days Qty: 60 0RF docusate sodium [Colace] 100 mg capsule 100 mg PO BID Qty: 30 0RF dexamethasone 4 mg tablet 4 mg PO DAILY Qty: 2 0RF Rx Instructions: Take one tablet once daily for two days meloxicam 15 mg tablet 15 mg PO DAILY Qty: 30 1RF Rx Instructions: Take one tablet daily for pain and inflammation pantoprazole 40 mg tablet,delayed release (DR/EC) 40 mg PO DAILY Qty: 14 0RF No Action oxycodone 10 mg tablet 10 mg PO .q4-6 MDD 6 tablets PRN (Reason: pain) Qty: 30 0RF Discharge Instructions Additional Instructions: Ice, elevate Take the oxycodone as needed for pain Take Tylenol every 6 hours Take the Phenergan as needed for nausea Call Dr. Quinteros if you have any concerns or worsening symptoms, you may always return to the emergency department as needed Should you have fever, chills, spreading redness, or dramatic change in pain, return for reassessment Referrals: Mahesh Quinteros MD [ [facility] STAFF PHYSICIAN] - Nicho Aguila [Primary Care Provider] - Discharge Data Discharge Date/Time-TO BE ENTERED AT DEPARTURE: 03/26/22 16:02 Medical Decision Making 51-year-old female status past knee surgery by Dr. Quinteros had, discharged from hospital approximately 4 days ago and has completed her pain medication, presents secondary to pain control issues Denies any fever chills, no signs or symptoms of infection, no wound dehiscence at surgical site appears well, No surrounding erythema, bruising consistent with recent surgery Case discussed with Dr. Quinteros, recommendation for pain control in the emergency department and he will call and a prescription for opiate analgesia for home, patient has also ask for some antiemetics which they will supply, Phenergan After patient was assessed in the emergency department, she was given 1 mg of IM Dilaudid which nicely alleviated her symptoms and she is now requesting discharge home I see no signs or symptoms of infection at this time She has close outpatient follow-up with the orthopedist and Dr. Quinteros is aware of her presentation today Return precautions reviewed and patient expressed understanding Medical Records Medical records reviewed: Yes I reviewed the patient's medical records. Sign Out No HPI General Date/Time Provider Initiated Documentation: 03/26/22 14:17. HPI Narrative: This 51-year-old female presents 1 week past knee surgery. She is discharged on the . She states that the pain has been persistently bothersome has finished her pain medication. Denies any fever or chills. Denies any changes in discomfort, states that her pain medication is simply completed at this Tylenol does not helping. She denies any calf pain or swelling. She denies any shortness of breath or chest discomfort. Related Data Home Medications Medication Instructions Recorded Confirmed pregabalin 25 mg capsule 25 mg PO DAILY PRN 12/23/21 03/26/22 alprazolam 1 mg tablet (Xanax) 1 mg PO PRN PRN 03/21/22 03/22/22 acetaminophen 500 mg tablet 1,000 mg PO Q8H PRN pain #90 tabs 03/22/22 aspirin 81 mg tablet,delayed 81 mg PO BID 30 days #60 tabs 03/22/22 03/26/22 release dexamethasone 4 mg tablet 4 mg PO DAILY #2 tabs 03/22/22 docusate sodium 100 mg capsule 100 mg PO BID #30 caps 03/22/22 03/26/22 (Colace) meloxicam 15 mg tablet 15 mg PO DAILY #30 tabs 03/22/22 pantoprazole 40 mg tablet,delayed 40 mg PO DAILY #14 tabs 03/22/22 03/26/22 release gabapentin 300 mg capsule 300 mg PO QHS #14 caps 03/23/22 03/26/22 promethazine 25 mg tablet 25 mg PO Q6H PRN #14 tabs 03/26/22 oxycodone 10 mg tablet 10 mg PO .q4-6 PRN pain #30 tabs 03/29/22 Previous Rx's Medication Instructions Recorded acetaminophen 500 mg tablet 1,000 mg PO Q8H PRN pain #90 tabs 03/22/22 aspirin 81 mg tablet,delayed 81 mg PO BID 30 days #60 tabs 03/22/22 release dexamethasone 4 mg tablet 4 mg PO DAILY #2 tabs 03/22/22 docusate sodium 100 mg capsule 100 mg PO BID #30 caps 03/22/22 (Colace) meloxicam 15 mg tablet 15 mg PO DAILY #30 tabs 03/22/22 pantoprazole 40 mg tablet,delayed 40 mg PO DAILY #14 tabs 03/22/22 release gabapentin 300 mg capsule 300 mg PO QHS #14 caps 03/23/22 promethazine 25 mg tablet 25 mg PO Q6H PRN #14 tabs 03/26/22 oxycodone 10 mg tablet 10 mg PO .q4-6 PRN pain #30 tabs 03/29/22 Allergies Allergy/AdvReac Type Severity Reaction Status Date / Time Sulfa (Sulfonamide Allergy Mild Hives Verified 03/26/22 14:15 Antibiotics) duloxetine AdvReac Severe it Verified 03/26/22 14:15 started fucking with my brain and I had toxic shit NSAIDS (Non-Steroidal AdvReac Mild Contraindic Verified 03/26/22 14:15 Anti-Inflamma ated tape Allergy Mild clear Uncoded 03/26/22 14:15 hospital tape bees Allergy Uncoded 03/26/22 14:15 General Stated Complaint: Orthopedic MARIA A: 4 Review of Systems All systems reviewed & are unremarkable except as noted in HPI and below PFSH All Active Problems (Updated 03/26/22 @ 15:45 by INNA Mcintyre) Post-op pain (Acute) Altered mental status (Acute) PTSD (post-traumatic stress disorder) (Chronic) Left knee DJD (Chronic) Mild chronic gastritis (Acute) Normal colonoscopy (Acute) Odontalgia (Acute) MCP subluxation (Acute) Rupture of radial collateral ligament of right thumb (Acute) Lumbosacral spondylosis without myelopathy (Acute) Medical History Adjustment disorder Anxiety Chronic low back pain Chronic pain syndrome Cirrhosis Fatigue Hepatitis C Patient reports completed treatment around 2017 History of bloody stools History of eye prosthesis left History of nephrolithiasis History of substance abuse Left eye pain Opioid dependence in remission Osteoarthritis Prosthetic eye globe left prosthetic eye PTSD (post-traumatic stress disorder) Restless leg Screening for breast cancer Tobacco dependence Surgical History History of cholecystectomy Laceration of left thumb with tendon involvement Extensor tendon Treated at [facility] S/P tubal ligation Status post arthroscopy of left knee Traumatic enucleation of left eye Social History Smoking/Tobacco Use Status: Current every day Tobacco Type: cigarettes Smoking packs per day: 0.5 Smoking cigarettes per day: 10.0 Smoking risk assessment performed?: Yes Alcohol Intake: former Drug use: Daily Substance use type: marijuana Details: Former substance user (Heroin) Sober since 2014 marijuana 2-3 times / day for anxiety Current gender identity: female Do you feel safe at home: Yes Do you feel safe in your relationship?: Yes Exam Const General: acute distress Orientation: alert and oriented x3 Extrem Other: Left knee with swelling, bruising, well approximated wound without dehiscence or evidence of secondary infection Distal pulses intact Course Vital Signs Vital signs: Vital Signs Temperature 35.9 C L 03/26/22 14:10 Pulse 107 H 03/26/22 14:10 Respiratory Rate 24 03/26/22 14:10 Blood Pressure 115/71 03/26/22 14:10 Pulse Oximetry 100 03/26/22 14:10 Temperature 35.9 C L 03/26/22 14:10 Temperature Source Temporal Artery Scan 03/26/22 14:10 Pulse 107 H 03/26/22 14:10 Respiratory Rate 24 03/26/22 14:10 Respiratory Effort Non-Labored 03/26/22 14:14 Blood Pressure 115/71 03/26/22 14:10 Blood Pressure Position Sitting 03/26/22 14:10 Pulse Oximetry 100 03/26/22 14:10 Oxygen Delivery Method Room Air 03/26/22 14:10 Oxygen Flow Rate 0 03/26/22 14:10 Pain Level 10 03/26/22 14:10
== END 2022-03-26 16:02 | disposition home or self-care (01) ==
PROVIDERS: Emergency Provider Physician Assistant; PCP Family Medicine
DX: G89.18 Other acute postprocedural pain (principal)
CPT/HCPCS: 96372; 99284; 99283; J1170

== ENCOUNTER 2022-04-07 10:45 | Outpatient (CLI) | payer OTHER, MEDICAID, SELFPAY ==
--- NOTE | 2022-04-07 10:50 | DI.RAD_ITS ---
Exam(s) XR STANDING ALIGNMENT EXAM: XR STANDING ALIGNMENT CLINICAL HISTORY: f/u L TKA. TECHNIQUE: 2D digital imaging was performed. COMPARISON: CR XR STANDING ALIGNMENT from 02/02/2022 FINDINGS: 3 views There has been interval placement of a left knee prosthesis which appears satisfactory. There is mil d degenerative change noted in the lateral compartment of the opposite-right knee. Medial compartmen t the right knee appears satisfactory. Both hips unremarkable. Ankles appear unremarkable. SI join ts unremarkable. IMPRESSION: As above. DATA REPOSITORY: RADIATION DOSE DELIVERED:
--- NOTE | 2022-04-07 10:52 | DI.RAD_ITS ---
Exam(s) XR KNEE LT 1V EXAM: XR KNEE LT 1V CLINICAL HISTORY: f/u L TKA. TECHNIQUE: 2D digital imaging was performed. COMPARISON: CR XR KNEE LT 1V from 02/02/2022 FINDINGS: Single lateral view. Satisfactory position alignment of the components of the prosthesis. No fracture or loosening eviden t on this single view. IMPRESSION: DATA REPOSITORY: RADIATION DOSE DELIVERED:
== END 2022-04-07 10:46 | disposition home or self-care (01) ==
LOC: DIORS 10:46
PROVIDERS: PCP Family Medicine; Referring Provider Family Medicine; Visit Provider Student in an Organized Health Care Education/Training Program
DX: Z96.652 Presence of left artificial knee joint (principal); Z47.1 Aftercare following joint replacement surgery
CPT/HCPCS: 73560; 77073

== ENCOUNTER → 2022-05-05 09:53 | Outpatient (BNVA) | payer OTHER, MEDICAID, SELFPAY | PROVIDERS: PCP Family Medicine; Referring Provider Family Medicine; Visit Provider Student in an Organized Health Care Education/Training Program | DX: Z47.1 Aftercare following joint replacement surgery (principal); Z96.652 Presence of left artificial knee joint; F11.21 Opioid dependence, in remission ==

== ENCOUNTER → 2022-06-23 11:13 | Outpatient (BNVA) | payer OTHER, MEDICAID, SELFPAY | PROVIDERS: PCP Family Medicine; Referring Provider Family Medicine; Visit Provider Physician Assistant | DX: Z47.1 Aftercare following joint replacement surgery (principal); Z96.652 Presence of left artificial knee joint ==

== ENCOUNTER → 2022-08-07 14:53 | Outpatient (BNVA) | payer OTHER, MEDICAID, SELFPAY | PROVIDERS: PCP Family Medicine; Referring Provider Family Medicine; Visit Provider Student in an Organized Health Care Education/Training Program | DX: Z47.1 Aftercare following joint replacement surgery (principal); M76.32 Iliotibial band syndrome, left leg; Z96.652 Presence of left artificial knee joint | CPT/HCPCS: 99213 ==

== ENCOUNTER → 2022-10-16 14:10 | Outpatient (BNVA) | payer OTHER, MEDICAID, SELFPAY | PROVIDERS: PCP Family Medicine; Referring Provider Family Medicine; Visit Provider Student in an Organized Health Care Education/Training Program | DX: Z47.1 Aftercare following joint replacement surgery (principal); Z96.652 Presence of left artificial knee joint | CPT/HCPCS: 99213 ==

== ENCOUNTER → 2023-02-19 02:33 | Outpatient (CLI) | payer OTHER, MEDICAID, SELFPAY ==
--- NOTE | 2023-02-19 | DI.CT_ITS ---
Exam(s) CT CHEST WO EXAM: CT CHEST WO CLINICAL HISTORY: LUNG NODULE R91.8 TECHNIQUE: Imaging Protocol: Axial computed tomography images with coronal and sagittal reformatted images were created and reviewed CONTRAST MATERIAL: Intravenous: Omnipaque 350 Contrast volume:structured data ml. COMPARISON: CR ABD FLAT UPRIGHT PA CHEST from 02/15/2010 CR XR CHEST 1 VW from 12/14/2022 FINDINGS: Pulmonary parenchyma: No consolidation. Mild emphysematous changes greater at the upper lobes. Mild scarring right upper lobe. Scattered tiny granulomas bilaterally. 5 millimeter circumscribed nodul e peripheral right middle lobe. 3 millimeter nodule peripheral lingula. Tracheobronchial tree: No bronchiectasis or mucous plugging. Mediastinum and Dilma: No dominant adenopathy or fluid collection. Pleura: No effusion. No pneumothorax. Heart: The heart is not dilated. No coronary artery calcifications are seen. Aorta: Thoracic aorta non-dilated. No visible atherosclerotic changes. Upper abdomen: Status post cholecystectomy. Bones: Mild compression of the inferior endplate of T6. Minimal degenerative changes in the spine. Soft tissues: Unremarkable. IMPRESSION: 5 millimeter nodule right middle lobe. 3 millimeter nodule lingula. No suspicious pulmonary nodules or mass. For multiple solid noncalcified nodules smaller than 6 mm in diameter, no routine follow-up is recomm ended (grade 2B; weak recommendation, moderate-quality evidence). (Kel et al., 2017) If the patient is at high risk for lung cancer, a low-dose screening CT could be performed in 1 year. No abnormality seen at the left costophrenic angle which was questioned on recent chest x-ray. RADIATION DOSE DELIVERED: Total DLP DATA REPOSITORY: All CT scans at this facility are submitted to the National Radiology Data Registry (NRDR) Dose Index Registry (DIR) with the [employer] (ACR). RADIATION OPTIMIZATION: All CT scans at this facility use at least one of these dose optimization te chniques: automated exposure control; mA and/or kV adjustment per patient size (includes targeted exa ms where dose is matched to clinical indication); or iterative reconstruction.
== END ==
PROVIDERS: PCP Family Medicine; Visit Provider Family Medicine
DX: R91.8 Other nonspecific abnormal finding of lung field (principal)
CPT/HCPCS: 71250

== ENCOUNTER 2023-09-25 13:14 | Outpatient (CLI) | payer OTHER, MEDICAID, SELFPAY ==
--- NOTE | 2023-09-25 12:45 | DI.RAD_ITS ---
Exam(s) XR SHOULDER RT COMPLETE 2+V EXAM: XR SHOULDER RT COMPLETE 2+V CLINICAL HISTORY: RIGHT SHOULDER PAIN. TECHNIQUE: 2D digital imaging was performed of the right shoulder. Two images were obtained. Grash ey and axillary views were obtained. COMPARISON: No exams were available for comparison FINDINGS: BONES: No acute fracture is present. No bony destructive lesion is seen. JOINTS: No dislocation present. Mild degenerative changes are seen at the glenohumeral joint. SOFT TISSUE: Normal. IMPRESSION: Mild degenerative changes of the right shoulder as described above. DATA REPOSITORY: RADIATION DOSE DELIVERED:
== END 2023-09-25 13:15 | disposition home or self-care (01) ==
LOC: DIORS 13:16
PROVIDERS: PCP Family Medicine; Referring Provider Family Medicine; Visit Provider Student in an Organized Health Care Education/Training Program
DX: M75.101 Unspecified rotator cuff tear or rupture of right shoulder, not specified as traumatic
CPT/HCPCS: 99213; 73030

== ENCOUNTER 2023-10-03 13:41 | Emergency (ER) | payer OTHER, MEDICAID, SELFPAY ==
[2023-10-03 13:45] VITALS: BP 178/122; PULSE 122; RESP 20; TEMP 36.8; O2SAT 95
[2023-10-03 13:53] VITALS: PULSE 114
--- NOTE | 2023-10-03 14:47 | ED.GENADUL_ITS ---
Discharge Plan Disposition Patient Disposition: Home Condition: Good Discharge Details Clinical Impression: Chronic pain in right shoulder Primary Care Provider: Nicho Aguila ED Provider: Eliseo Keating Home Meds and New Rx's Prescriptions: New lidocaine [Lidoderm] 5 % adhesive patch,medicated 1 patch Topical Q24H Qty: 15 0RF No Action buprenorphine-naloxone 4-1 mg film See Rx Instructions sublingual .COMPLEX Patient Comments: PLACE ONE FILM UNDER THE TONGUE TWICE A DAY IN THE MORNING Rx Instructions: sublingually one film under tongue bid in am.; buprenorphine-naloxone 2-0.5 mg film See Rx Instructions sublingual .COMPLEX Patient Comments: PLACE ONE FILM UNDER THE TONGUE EVERY DAY AT BEDTIME Rx Instructions: sublingually QHS; acetaminophen 500 mg tablet 1,000 mg PO Q8H PRN Qty: 90 0RF Rx Instructions: Take two tablets up to every 8 hours as needed for pain Discharge Instructions Instructions: Shoulder Pain ED Additional Instructions: As we discussed together you are on the right path for definitive diagnosis of your shoulder pain with the scheduled MRI and the orthopedic follow-up. As soon as orthopedics allows, I would recommend starting physical therapy. As we discussed together it is not within the emergency department's policy to prescribe long-term narcotic pain medication. That being said we certainly understand that you are having significant pain at this time. Management of this pain requires a multimodal approach. We recommend that you continue taking 800 mg of ibuprofen every 6 hours. Please take this with food as it can cause irritation to your stomach. Please avoid Tylenol secondary to your history of hepatitis. Please apply the Voltaren gel every 6-8 hours on your shoulder. Ple ase apply the Lidoderm patch every day as prescribed. Please continue to use ice for your shoulder. Please take the oxycodone pain medication only as needed for breakthrough pain. Please understand that this can cause addiction and respiratory depression. If you take this, please understand that risk. Please use the sling as needed for comfort. Please sleep in an upright position to help with the pain. If you notice any worsening of your symptoms, or any new symptoms such as vomiting, diarrhea, fever, chills, shortness of breath, chest pain, numbness, weakness, or fainting , please return immediately to the emergency department for reevaluation. Please follow up with your primary care provider as soon as possible for reassessment and reevaluation. As always, it was a pleasure partic ipating in your medical care today. Referrals: Darin Mcintosh MD [ [facility] STAFF PHYSICIAN] - Mahesh Quinteros MD [ [facility] STAFF PHYSICIAN] - Nicho Aguila [Primary Care Provider] - [facility] General Date/Time Provider Initiated Documentation: 10/03/23 13:42 . HPI Narrative: 53-year-old female with past medical history of previous kidney stones, previous opioid dependence but now in remission, left prosthetic eye, anxiety, hepatitis C has been treated, cirrhosis secondary to the previous hep C, PTSD, anxiety, who presents today for right shoulder pain. About 5-8 weeks ago the patient was resting on her elbows when she twisted and had significant pain in her in her right shoulder. Pain is continued over the last few weeks. She was seen and assessed by Dr. Mcintosh on 09/25/2023 where there was concern for rotator cuff tear. MRI was ordered. Patient states that orthopedics recommended holding off on physical therapy for the time being. Outpatient MRI is supposed to be scheduled sometime around today or tomorrow. Patient has had continued pain with movement and has difficulty sleeping because of it. She went to her PCPs office today, and it was a new practitioner. The new practitioner did not have additional significant recommendations for pain control per patient, and patient states that she left and walked out of the room near the end of the interview. She then came to the ER for further assessment and help with pain management. Patient states that she has been taking intermittent Motrin, CBD ointment, ice and heat to help with the pain. These only helped minimally. She denies any distal pain, pain is isolated just to the right shoulder and only present with movement and sleeping. She denies any chest pain or shortness of breath. No other complaints at this time. She did use 2 oxycodones that she had leftover from an old procedure, and stated that these did slightly help. No other complaints at this time. Related Data Home Medications Medication Instructions Recorded Confirmed acetaminophen 500 mg tablet 1,000 mg (2 x 500 mg) PO Q8H PRN 03/22/22 10/03/23 pain #90 tabs buprenorphine 2 mg-naloxone 0.5 mg See Rx Instructions sublingual 10/03/23 10/03/23 sublingual film .COMPLEX buprenorphine 4 mg-naloxone 1 mg See Rx Instructions sublingual 10/03/23 10/03/23 sublingual film .COMPLEX lidocaine 5 % topical patch 1 patch topical Q24H #15 ea 10/03/23 (Lidoderm) Previous Rx's Medication Instructions Recorded acetaminophen 500 mg tablet 1,000 mg (2 x 500 mg) PO Q8H PRN 03/22/22 pain #90 tabs lidocaine 5 % topical patch 1 patch topical Q24H #15 ea 10/03/23 (Lidoderm) Allergies Allergy/AdvReac Type Severity Reaction Status Date / Time Sulfa (Sulfonamide Allergy Mild Hives Verified 10/03/23 13:49 Antibiotics) duloxetine AdvReac Severe it Verified 10/03/23 13:49 started fucking with my brain and I had toxic shit NSAIDS (Non-Steroidal AdvReac Mild Contraindic Verified 10/03/23 13:49 Anti-Inflamma ated tape Allergy Mild clear Uncoded 10/03/23 13:49 hospital tape bees Allergy Other (See Uncoded 10/03/23 13:49 Comment) General Stated Complaint: Orthopedic MARIA A: 3 Review of Systems All systems reviewed & are unremarkable except as noted in HPI and below Exam Narrative Exam Narrative: 1.Const: Well-nourished, Well-developed, appearing stated age 2.Eyes: PERRL, no conjunctival injection, and symmetrical lids. 3.ENT: Atraumatic external nose and ears. Moist MM. Neck: Symmetric, trachea midline, No thyromegaly. 4.CVS: +S1/S2, No murmurs or gallops. Peripheral pulses 2+ and equal in all extremities. Brisk capillary refill in all extremities. 5.RESP: Unlabored respiratory effort. Clear to auscultation bilaterally. No wheezes rales or rhonchi 6.GI: Soft, Nontender/Nondistended, No hepatosplenomegaly. No guarding or rebound. 7.MSK: Normocephalic/Atraumatic, Extremities w/o deformity or ttp No cyanosis or clubbing, reduced movement of the right shoulder. No redness or warmth to suggest cellulitis. No signs of fracture or trauma. Pain with all directions of motion for the arm, specifically abduction and external rotation. Normal sensation throughout the hand, good brace end mainspring former strength. Good movement otherwise of the elbow and wrist and hand. 8.Skin: Warm, Dry. No rashes or lesions. 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 Sensation grossly intact, no focal neurologic deficits. 10.Psych: (AAO) x3. Appropriate mood and affect Course Vital Signs Vital signs: Vital Signs Temperature 36.8 C 10/03/23 13:45 Pulse 122 H 10/03/23 13:45 Respiratory Rate 20 10/03/23 13:45 Blood Pressure 178/122 H 10/03/23 13:45 Pulse Oximetry 95 10/03/23 13:45 Temperature 36.8 C 10/03/23 13:45 Pulse 114 H 10/03/23 13:53 Respiratory Rate 20 10/03/23 13:45 Blood Pressure 178/122 H 10/03/23 13:45 Pulse Oximetry 95 10/03/23 13:45 Medical Decision Making 53-year-old female with past medical history of previous kidney stones, previous opioid dependence but now in remission, left prosthetic eye, anxiety, hepatitis C has been treated, cirrhosis secondary to the previous hep C, PTSD, anxiety, who presents today for right shoulder pain. About 5-8 weeks ago the patient was resting on her elbows when she twisted and had significant pain in her in her right shoulder. Pain is continued over the last few weeks. She was seen and assessed by Dr. Mcintosh on 09/25/2023 where there was concern for rotator cuff tear. MRI was ordered. Patient states that orthopedics recommended holding off on physical therapy for the time being. Outpatient MRI is supposed to be scheduled sometime around today or tomorrow. Patient has had continued pain with movement and has difficulty sleeping because of it. She went to her PCPs office today, and it was a new practitioner. The new practitioner did not have additional significant recommendations for pain control per patient, and patient states that she left and walked out of the room near the end of the interview. She then came to the ER for further assessment and help with pain management. Patient states that she has been taking intermittent Motrin, CBD ointment, ice and heat to help with the pain. These only helped minimally. She denies any distal pain, pain is isolated just to the right shoulder and only present with movement and sleeping. She denies any chest pain or shortness of breath. No other complaints at this time. She did use 2 oxycodones that she had leftover from an old procedure, and stated that these did slightly help. No other complaints at this time. Physical exam demonstrates no redness warmth or atypical component in the shoulder. Pain with nearly all movements specifically abduction and external rotation. Concern for rotator cuff injury, but I certainly defer to the expertise of the home health billing specialist. That being said the patient's main concern is for pain management. Symptoms at this time are inconsistent with acute fracture, cellulitis, septic joint, or other abnormality in that regard. I do feel that continued following with the MRI is the appropriate next plan. In regards to pain management, I do feel that optimization of nonnarcotics is critical. Will recommend 800 mg of ibuprofen every 6 hours and I did discuss with her that this is the maximum dose. Additionally will recommend Voltaren gel every 6-8 hours, Lidoderm patch, physical therapy, ice, sitting upright, as the main mechanisms of treatment. I discussed with the patient their recurrent pain issues. Today they have been evaluated in the emergency department for pain-related issues. I emphasized that my training was in the treatment of acute pain, that their physical exam here is quite reassuring, and that definitive treatment of chronic pain is not the role of the emergency department. I compassionately explained that I felt providing opiate medications from the emergency department was counterproductive in that this may cause or exacerbate tolerance, acute overdose, physiological or psychological dependence, or with drawal. We discussed that opiate use in the management of chronic pain is best managed by a single practitioner, such as a primary care provider or a pain specialist. We discussed adjunctive therapies such as heat, ice, and exercise, as well as non-opiate medications such as acetaminophen, NSAIDs, antidepressants,. I reiterated that the most effective management of their chronic pain involves a multimodal approach coordinated by their primary care provider and often includes physical therapy, cognitive behavioral therapy, and referrals to practitioners such as anesthesiologists trained in chronic pain management. For breakthrough pain we will prescribe 4 tablets of oxycodone that will be dispensed here. Patient understands this. Patient accepts this current form of treatment and will change her other medications to fit our recommendations. Discussed red flags for which to return. I have extensively reviewed the treatment plan and discharge instructions with the patient. I have addressed all patient concerns at this time. The patient was made aware of what symptoms to monitor for that would warrant a return to the emergency department. Discussed the plan with the patient, they demonstrate verbal understanding and agreement with our assessment and plan at this time. The documentation in this chart was dictated using [employer] dictation software. Please excuse any dictation errors. Quality:SDOH Health Related Social Needs: No Data to Display PFSH All Active Problems Chronic pain in right shoulder (Acute) Right rotator cuff tear (Acute) Iliotibial band syndrome, left leg (Acute) Altered mental status (Acute) PTSD (post-traumatic stress disorder) (Chronic) Left knee DJD (Chronic) Mild chronic gastritis (Acute) Normal colonoscopy (Acute) Odontalgia (Acute) MCP subluxation (Acute) Rupture of radial collateral ligament of right thumb (Acute) Lumbosacral spondylosis without myelopathy (Acute) Medical History Anxiety Prosthetic eye globe left prosthetic eye Fatigue Screening for breast cancer Opioid dependence in remission Chronic low back pain Chronic pain syndrome Left eye pain Restless leg History of nephrolithiasis Osteoarthritis Cirrhosis History of eye prosthesis left Tobacco dependence History of substance abuse Adjustment disorder History of bloody stools Hepatitis C Patient reports completed treatment around 2016 PTSD (post-traumatic stress disorder) Surgical History Status post left knee replacement (03/22/22) Laceration of left thumb with tendon involvement Extensor tendon [place] [facility] [place] post arthroscopy of left knee History of cholecystectomy S/P tubal ligation Traumatic enucleation of left eye Social History Smoking/Tobacco Use Status: Current every day Tobacco Type: cigarettes Smoking packs per day: 0.5 Smoking cigarettes per day: 10.0 Smoking risk assessment performed?: Yes Alcohol Intake: former Drug use: Daily Substance use type: marijuana Details: Former substance user (Heroin) Sober since 2014 marijuana 2-3 times / day for anxiety Current gender identity: female Do you feel safe at home: Yes Do you feel safe in your relationship?: Yes
[2023-10-03] MEDS: Lidocaine 5% Patch 1 PATCH TP (14:55)
== END 2023-10-03 15:06 | disposition home or self-care (01) ==
LOC: ER 15:06
PROVIDERS: Emergency Provider Student in an Organized Health Care Education/Training Program; PCP Family Medicine
DX: M25.511 Pain in right shoulder (principal); G89.29 Other chronic pain; F11.20 Opioid dependence, uncomplicated; Z97.0 Presence of artificial eye; F41.9 Anxiety disorder, unspecified
CPT/HCPCS: 99283; 99284

== ENCOUNTER → 2023-10-16 01:59 | Outpatient (CLI) | payer OTHER, MEDICAID, SELFPAY ==
--- OUTSIDE RECORDS SUMMARY | 2023-10-16 02:01 | XMS_ITS | Continuity of Care Document ---
Author Name Unknown Organization [facility] Address [address] [place] [address] Care Team Providers Care Community Service Organization Director Name Role Phone Nicho Aguila Primary Care Physician Encounter [facility] Date(s): 02/14/22 - 02/14/[address] [id number] Encounter Diagnosis Facial contusion(Discharge Diagnosis) - 02/14/22 Sinusitis(Discharge Diagnosis) - 02/14/22 Discharge Disposition: Home or Self Care Attending Physician: Nelida Shaw MD Admitting Physician: Nelida Shaw MD Allergies, Adverse Reactions, Alerts Substance Reaction Severity Status Bee Stings Unknown Active sulfa drugs Unknown Active Functional Status 02/14/22 Family Member Travel History No recent t ravel Recent Travel History No recent travel Other exposure to Infectious Disease Non e Immunizations Given and Recorded Vaccine Date Status Refusal Reason tetanus/diphth/pertuss (Tdap) adult/adol 10/29/21 Given Medications amoxicillin 500 mg oral capsule 500 mg = 1 cap, Oral, TID, # 30 cap, 0 Refill(s), Pharmacy: [id number], 165, cm, 02/14/2211:13:00 EDT, Height/Length Dosing, 58, kg, 02/14/22 11:13:00 EDT, Weight Dosing Start Date: 02/14/22 Stop Date: 02/24/22 Status: Ordered Lyrica 0 Refill(s) Start Date: 10/29/21 Status: Ordered traMADol 50 mg oral tablet 50 mg = 1 tab, Oral, every 6 hr, PRN as needed for pain, # 15 tab, 0 Refill(s), Pharmacy: [id number], 165, cm, 02/14/22 11:13:00 EDT, Height/Length Dosing, 58, kg, 02/14/22 11:13:00 EDT, Weight Dosing Start Date: 02/14/22 Status: Ordered traMADol 50 mg oral tablet 50 mg = 1 tab, Oral, every 6 hr, PRN as needed for pain, # 15 tab, 0 Refill(s), Pharmacy: [id number], 165, cm, 02/14/22 11:13:00 EDT, Height/Length Dosing, 58, kg, 02/14/22 11:13:00 EDT, Weight Dosing Start Date: 02/14/22 Status: Ordered Tylenol 0 Refill(s) Start Date: 10/29/21 Status: Ordered Problem List Condition Confirmation Course Effective Dates Status Health St atus Informant Laceration of thumb Confirmed Active Rupture extensor digitorum tendon Confirmed Active Vital Signs Most recent to oldest [Reference Range]: 1 Temperature Temporal Artery [36-38 Deg C ] 36.7 Deg C (02/14/22 11:00 AM) Peripheral Pulse Rate [60-100 bpm] 75 bp m (02/14/22 11:00 AM) Respiratory Rate [12-24 br/min] 16 br/mi n (02/14/22 11:00 AM) Blood Pressure [90-140/60-90 mmHg] 143/7 7mmHg *HI* (02/14/22 11:00 AM) Weight Dosing 58.00 kg (02/14/22 11:13 AM) Weight Estimated 58.00 kg (02/14/22 11:00 AM) Height/Length Dosing 165.000 cm (02/14/22 11:13 AM) Height/Length Estimated 165.000 cm (02/14/22 11:00 AM) Social History Social History Type Response Tobacco Current everyday tob acco user Tobacco Use:. Sex Female Hospital Discharge Instructions Patient Education 02/14/2022 12:48:15 Sinusitis, Adult, Nnmf-nz-Znsx Sinusitis, Adult Sinusitis is soreness and swelling (inflammation) of your sinuses. Sinuses are hollow spaces in thebones around your face. They are located: ??? Around your eyes. ??? In the middle of your forehead. ??? Behind your nose. ??? In your cheekbones. Your sinuses and nasal passages are lined with a fluid called mucus. Mucus drains out of your sinuses. Swelling can trap mucus in your sinuses. This lets germs (bacteria, virus, or fungus) grow, which leads to infection. Most of the time, this condition is caused by a virus. What are the causes? This condition is caused by: ??? Allergies. ??? Asthma. ??? Germs. ??? Things that block your nose or sinuses. ??? Growths in the nose (nasal polyps). ??? Chemicals or irritants in the air. ??? Fungus (rare). What increases the risk? You are more likely to develop this condition if: ??? You have a weak body defense system (immune system). ??? You do a lot of swimming or diving. ??? You use nasal sprays too much. ??? You smoke. What are the signs or symptoms? The main symptoms of this condition are pain and a feeling of pressure around the sinuses. Other symptoms include: ??? Stuffy nose (congestion). ??? Runny nose (drainage). ??? Swelling and warmth in the sinuses. ??? Headache. ??? Toothache. ??? A cough that may get worse at night. ??? Mucus that collects in the throat or the back of the nose (postnasal drip). ??? Being unable to smell and taste. ??? Being very tired (fatigue). ??? A fever. ??? Sore throat. ??? Bad breath. How is this diagnosed? This condition is diagnosed based on: ??? Your symptoms. ??? Your medical history. ??? A physical exam. ??? Tests to find out if your condition is short-term (acute) or long-term (chronic). Your doctor may: ??? Check your nose for growths (polyps). ??? Check your sinuses using a tool that has a light (endoscope). ??? Check for allergies or germs. ??? Do imaging tests, such as an MRI or CT scan. How is this treated? Treatment for this condition depends on the cause and whether it is short-term or long-term. ??? If caused by a virus, your symptoms should go away on their own within 10 days. You may be given medicines to relieve symptoms. They include: ??? Medicines that shrink swollen tissue in the nose. ??? Medicines that treat allergies (antihistamines). ??? A spray that treats swelling of the nostrils.? Rinses that help get rid of thick mucus in your nose (nasal saline washes). ??? If caused by bacteria, your doctor may wait to see if you will get better without treatment. You may be given antibiotic medicine if you have: ??? A very bad infection. ??? A weak body defense system. ??? If caused by growths in the nose, you may need to have surgery. Follow these instructions at home: Medicines ??? Take, use, or apply tibf-uaq-aoorggc and prescription medicines only as told by your doctor. These may include nasal sprays. ??? If you were prescribed an antibiotic medicine, take it as told by your doctor. Do not stop taking the antibiotic even if you start to feel better. Hydrate and humidify ??? Drink enough water to keep your pee (urine) pale yellow. ??? Use a cool mist humidifier to keep the humidity level in your home above 50%. ??? Breathe in steam for 10???15 minutes, 3???4 times a day, or as told by your doctor. You can do this in the bathroom while a hot shower is running. ??? Try not to spend time in cool or dry air. Rest ??? Rest as much as you can. ??? Sleep with your head raised (elevated). ??? Make sure you get enough sleep each night. General instructions ??? Put a warm, moist washcloth on your face 3???4 times a day, or as often as told by your doctor.This will help with discomfort. ??? Wash your hands often with soap and water. If there is no soap and water, use hand leather craftsman. ??? Do not smoke. Avoid being around people who are smoking (secondhand smoke). ??? Keep all follow-up visits as told by your doctor. This is important. Contact a doctor if: ??? You have a fever. ??? Your symptoms get worse. ??? Your symptoms do not get better within 10 days. Get help right away if: ??? You have a very bad headache. ??? You cannot stop throwing up (vomiting). ??? You have very bad pain or swelling around your face or eyes. ??? You have trouble seeing. ??? You feel confused. ??? Your neck is stiff. ??? You have trouble breathing. Summary ??? Sinusitis is swelling of your sinuses. Sinuses are hollow spaces in the bones around your face. ??? This condition is caused by tissues in your nose that become inflamed or swollen. This traps germs. These can lead to infection. ??? If you were prescribed an antibiotic medicine, take it as told by your doctor. Do not stop taking it even if you start to feel better. ??? Keep all follow-up visits as told by your doctor. This is important. This information is not intended to replace advice given to you by your health care provider. Make sure you discuss any questions you have with your health care provider. Document Revised: 09/09/2018 Document Reviewed: 09/09/2018 [employer] Patient Education ?? 2021 [email or web address] 02/14/2022 12:48:15 Sinusitis, Adult, Tvsp-hv-Fmtz Sinusitis, Adult Sinusitis is soreness and swelling (inflammation) of your sinuses. Sinuses are hollow spaces in thebones around your face. They are located: ??? Around your eyes. ??? In the middle of your forehead. ??? Behind your nose. ??? In your cheekbones. Your sinuses and nasal passages are lined with a fluid called mucus. Mucus drains out of your sinuses. Swelling can trap mucus in your sinuses. This lets germs (bacteria, virus, or fungus) grow, which leads to infection. Most of the time, this condition is caused by a virus. What are the causes? This condition is caused by: ??? Allergies. ??? Asthma. ??? Germs. ??? Things that block your nose or sinuses. ??? Growths in the nose (nasal polyps). ??? Chemicals or irritants in the air. ??? Fungus (rare). What increases the risk? You are more likely to develop this condition if: ??? You have a weak body defense system (immune system). ??? You do a lot of swimming or diving. ??? You use nasal sprays too much. ??? You smoke. What are the signs or symptoms? The main symptoms of this condition are pain and a feeling of pressure around the sinuses. Other symptoms include: ??? Stuffy nose (congestion). ??? Runny nose (drainage). ??? Swelling and warmth in the sinuses. ??? Headache. ??? Toothache. ??? A cough that may get worse at night. ??? Mucus that collects in the throat or the back of the nose (postnasal drip). ??? Being unable to smell and taste. ??? Being very tired (fatigue). ??? A fever. ??? Sore throat. ??? Bad breath. How is this diagnosed? This condition is diagnosed based on: ??? Your symptoms. ??? Your medical history. ??? A physical exam. ??? Tests to find out if your condition is short-term (acute) or long-term (chronic). Your doctor may: ??? Check your nose for growths (polyps). ??? Check your sinuses using a tool that has a light (endoscope). ??? Check for allergies or germs. ??? Do imaging tests, such as an MRI or CT scan. How is this treated? Treatment for this condition depends on the cause and whether it is short-term or long-term. ??? If caused by a virus, your symptoms should go away on their own within 10 days. You may be given medicines to relieve symptoms. They include: ??? Medicines that shrink swollen tissue in the nose. ??? Medicines that treat allergies (antihistamines). ??? A spray that treats swelling of the nostrils.? Rinses that help get rid of thick mucus in your nose (nasal saline washes). ??? If caused by bacteria, your doctor may wait to see if you will get better without treatment. You may be given antibiotic medicine if you have: ??? A very bad infection. ??? A weak body defense system. ??? If caused by growths in the nose, you may need to have surgery. Follow these instructions at home: Medicines ??? Take, use, or apply kddy-mjw-zkluiqo and prescription medicines only as told by your doctor. These may include nasal sprays. ??? If you were prescribed an antibiotic medicine, take it as told by your doctor. Do not stop taking the antibiotic even if you start to feel better. Hydrate and humidify ??? Drink enough water to keep your pee (urine) pale yellow. ??? Use a cool mist humidifier to keep the humidity level in your home above 50%. ??? Breathe in steam for 10???15 minutes, 3???4 times a day, or as told by your doctor. You can do this in the bathroom while a hot shower is running. ??? Try not to spend time in cool or dry air. Rest ??? Rest as much as you can. ??? Sleep with your head raised (elevated). ??? Make sure you get enough sleep each night. General instructions ??? Put a warm, moist washcloth on your face 3???4 times a day, or as often as told by your doctor.This will help with discomfort. ??? Wash your hands often with soap and water. If there is no soap and water, use hand leather craftsman. ??? Do not smoke. Avoid being around people who are smoking (secondhand smoke). ??? Keep all follow-up visits as told by your doctor. This is important. Contact a doctor if: ??? You have a fever. ??? Your symptoms get worse. ??? Your symptoms do not get better within 10 days. Get help right away if: ??? You have a very bad headache. ??? You cannot stop throwing up (vomiting). ??? You have very bad pain or swelling around your face or eyes. ??? You have trouble seeing. ??? You feel confused. ??? Your neck is stiff. ??? You have trouble breathing. Summary ??? Sinusitis is swelling of your sinuses. Sinuses are hollow spaces in the bones around your face. ??? This condition is caused by tissues in your nose that become inflamed or swollen. This traps germs. These can lead to infection. ??? If you were prescribed an antibiotic medicine, take it as told by your doctor. Do not stop taking it even if you start to feel better. ??? Keep all follow-up visits as told by your doctor. This is important. This information is not intended to replace advice given to you by your health care provider. Make sure you discuss any questions you have with your health care provider. Document Revised: 09/09/2018 Document Reviewed: 09/09/2018 [employer] Patient Education ?? 2021 [employer] 02/14/2022 12:48:11 Facial or Scalp Contusion, Jbxb-uv-Vkuq Facial or Scalp Contusion A facial or scalp contusion is a bruise (contusion) on the face or head. Bruises happen when an injury causes bleeding under the skin. The bruise may turn blue, purple, or yellow (discoloration). Minor injuries may cause a bruise that is not painful. Some bruises are painful and swollen for a few weeks. Injuries to the face and head usually cause a lot of swelling, especially around the eyes. You may have other injuries as well, such as broken bones or cuts. What are the causes? An injury to the face or head from an object. ??? A fall. ??? A hit to the face or head area. ??? Car accidents. ??? Sports injuries. ??? Attacks from another person (assaults). What are the signs or symptoms? Swelling in the area of the injury. The swelling may be in a small areas and very noticeable. ??? The injured area being a different color than normal. ??? Pain or soreness in the injured area. If you also have broken bones, your nose might be a different shape, you may be unable to close your mouth and you might have vision changes. How is this treated? Applying cold compresses to the hurt area. This is often the best treatment. ??? Taking usql-tlu-pilsach medicines to help take the pain away, if your doctor tells you to take them. ??? If there are any cuts, these will need to be repaired as well. ??? Any deeper injuries may require treatment and follow up with a specialist, such as a surgeon oreye specialist. Follow these instructions at home: Managing pain, stiffness, and swelling ??? If told, put ice on the injured area. To do this: ??? Put ice in a plastic bag. ??? Place a towel between your skin and the bag. ??? Leave the ice on for 20 minutes, 2???3 times a day. ??? Take off the ice if your skin turns bright red. This is very important. If you cannot feel pain, heat, or cold, you have a greater risk of damage to the area. ??? Raise the injured area above the level of your heart while you are sitting or lying down. General instructions ??? Take hnql-pdv-fmersto and prescription medicines only as told by your doctor. ??? Rest as told by your doctor. ??? Return to your normal activities when your doctor says that it is safe. ??? Do not blow your nose if you have any broken bones in your face. ??? Eat soft foods if you are having jaw pain. ??? Keep all follow-up visits. Contact a doctor if: ??? You have trouble biting or chewing. ??? Your pain or swelling gets worse. ??? The bruised area gets worse. Get help right away if: ??? You have very bad pain or a headache, and medicine does not help. ??? You are very tired or confused. ??? Your personality changes. ??? You vomit. ??? You have a nosebleed that does not stop. ??? You see two of everything (double vision) or have blurry vision. ??? You have clear fluid coming from your nose or ear, and it does not go away. ??? You have problems walking or using your arms or legs. ??? You feel very dizzy. Summary ??? A facial or scalp contusion is a bruise on the face or head. ??? Bruises happen when an injury causes bleeding under the skin. ??? Minor injuries will cause a bruise that is not painful, but worse bruises can stay painful and swollen for a few weeks. ??? Go to a doctor if you have problems seeing, bleeding from your face or nose, or you have trouble biting or chewing. ??? Applying cold compresses to the hurt area is often the best treatment. This information is not intended to replace advice given to you by your health care provider. Make sure you discuss any questions you have with your health care provider. Document Revised: 05/16/2021 Document Reviewed: 05/16/2021 [employer] Patient Education ?? 2021 [email or web address] 02/14/2022 12:48:11 Facial or Scalp Contusion, Zzyx-iw-Swse Facial or Scalp Contusion A facial or scalp contusion is a bruise (contusion) on the face or head. Bruises happen when an injury causes bleeding under the skin. The bruise may turn blue, purple, or yellow (discoloration). Minor injuries may cause a bruise that is not painful. Some bruises are painful and swollen for a few weeks. Injuries to the face and head usually cause a lot of swelling, especially around the eyes. You may have other injuries as well, such as broken bones or cuts. What are the causes? An injury to the face or head from an object. ??? A fall. ??? A hit to the face or head area. ??? Car accidents. ??? Sports injuries. ??? Attacks from another person (assaults). What are the signs or symptoms? Swelling in the area of the injury. The swelling may be in a small areas and very noticeable. ??? The injured area being a different color than normal. ??? Pain or soreness in the injured area. If you also have broken bones, your nose might be a different shape, you may be unable to close your mouth and you might have vision changes. How is this treated? Applying cold compresses to the hurt area. This is often the best treatment. ??? Taking jcel-cyu-wdmcaak medicines to help take the pain away, if your doctor tells you to take them. ??? If there are any cuts, these will need to be repaired as well. ??? Any deeper injuries may require treatment and follow up with a specialist, such as a surgeon oreye specialist. Follow these instructions at home: Managing pain, stiffness, and swelling ??? If told, put ice on the injured area. To do this: ??? Put ice in a plastic bag. ??? Place a towel between your skin and the bag. ??? Leave the ice on for 20 minutes, 2???3 times a day. ??? Take off the ice if your skin turns bright red. This is very important. If you cannot feel pain, heat, or cold, you have a greater risk of damage to the area. ??? Raise the injured area above the level of your heart while you are sitting or lying down. General instructions ??? Take krev-dsx-meicfwf and prescription medicines only as told by your doctor. ??? Rest as told by your doctor. ??? Return to your normal activities when your doctor says that it is safe. ??? Do not blow your nose if you have any broken bones in your face. ??? Eat soft foods if you are having jaw pain. ??? Keep all follow-up visits. Contact a doctor if: ??? You have trouble biting or chewing. ??? Your pain or swelling gets worse. ??? The bruised area gets worse. Get help right away if: ??? You have very bad pain or a headache, and medicine does not help. ??? You are very tired or confused. ??? Your personality changes. ??? You vomit. ??? You have a nosebleed that does not stop. ??? You see two of everything (double vision) or have blurry vision. ??? You have clear fluid coming from your nose or ear, and it does not go away. ??? You have problems walking or using your arms or legs. ??? You feel very dizzy. Summary ??? A facial or scalp contusion is a bruise on the face or head. ??? Bruises happen when an injury causes bleeding under the skin. ??? Minor injuries will cause a bruise that is not painful, but worse bruises can stay painful and swollen for a few weeks. ??? Go to a doctor if you have problems seeing, bleeding from your face or nose, or you have trouble biting or chewing. ??? Applying cold compresses to the hurt area is often the best treatment. This information is not intended to replace advice given to you by your health care provider. Make sure you discuss any questions you have with your health care provider. Document Revised: 05/16/2021 Document Reviewed: 05/16/2021 [employer] Patient Education ?? 2021 [employer] Follow Up Care 02/14/2022 11:00:14 With:Follow up with primary care provider Address: When: only if needed Patient Care team information Personnel Name: Nicho Aguila Address: Address: [address] [place], [place] [address]
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
--- OUTSIDE RECORDS SUMMARY | 2023-10-16 02:01 | XMS_ITS | Continuity of Care Document ---
Author Name Unknown Organization [facility] Address [address] [place] [address] Care Team Providers Care Technical Support Specialist Name Role Phone Nicho Aguila Primary Care Physician [phone] Encounter [facility] Date(s): 06/10/22 - 06/10/[address] [address] Encounter Diagnosis Knee effusion(Discharge Diagnosis) - 06/10/22 Muscle strain of knee(Discharge Diagnosis) - 06/10/22 Knee sprain(Discharge Diagnosis) - 06/10/22 Discharge Disposition: Home or Self Care Attending Physician: Nelida Shaw MD Admitting Physician: Nelida Shaw MD Allergies, Adverse Reactions, Alerts Substance Reaction Severity Status Bee Stings Unknown Active sulfa drugs Unknown Active Assessment and Plan Extracted from: Title:Clinical Document Author:Winnie Villa te:06/10/22 Diagnosis: 1. Knee effusion Comment: Diagnosis: 2. Muscle strain of knee Comment: Diagnosis: 3. Knee sprain Comment: Diagnosis: Knee pain-swelling Comment: Functional Status 06/10/22 Family Member Travel History No recent t ravel Recent Travel History No recent travel Other exposure to Infectious Disease Non e Immunizations Given and Recorded Vaccine Date Status Refusal Reason tetanus/diphth/pertuss (Tdap) adult/adol 10/29/21 Given Medications ibuprofen 800 mg oral tablet 800 mg = 1 tab, Oral, every 8 hr, # 30 tab, 0 Refill(s), Pharmacy: [id number], 165, cm, 06/10/22 15:15:00 EST, Height/Length Dosing, 55.34, kg, 06/10/22 15:15:00 EST, Weight Dosing Start Date: 06/10/22 Status: Ordered Lyrica 0 Refill(s) Start Date: 10/29/21 Status: Ordered oxyCODONE 5 mg oral tablet [...] pain, # 24 tab, 0 Refill(s), Pharmacy: [id number], 165, cm, 06/10/22 15:15:00 EST, Height/Length Dosing, 55.34, kg, 06/10/22 15:15:00 EST, Weight Dosing Start Date: 06/10/22 Status: Ordered Problem List Condition Confirmation Course Effective Dates Status Health St atus Informant Laceration of thumb Confirmed Active Rupture extensor digitorum tendon Confirmed Active Vital Signs Most recent to oldest [Reference Range]: 1 Temperature Temporal Artery [36-38 Deg C ] 37.2 Deg C (06/10/22 3:06 PM) Peripheral Pulse Rate [60-100 bpm] 117 b pm *HI* (06/10/22 3:06 PM) Respiratory Rate [12-24 br/min] 20 br/mi n (06/10/22 3:06 PM) Blood Pressure [90-140/60-90 mmHg] 204/1 20mmHg *HI* (06/10/22 3:06 PM) Weight Dosing 55.34 kg (06/10/22 3:15 PM) Weight Estimated 55.34 kg (06/10/22 3:06 PM) Height/Length Dosing 165.000 cm (06/10/22 3:15 PM) Height/Length Estimated 165.000 cm (06/10/22 3:06 PM) Social History Social History Type Response Tobacco Current everyday tob acco user Tobacco Use:. Sex Female Hospital Discharge Instructions Patient Education 06/10/2022 16:22:03 Knee Effusion Knee Effusion Knee effusion refers to excess fluid in the knee joint. This can cause pain and swelling in your knee. Knee effusion creates more pressure than usual in your knee joint. This makes it more difficult for you to bend and move your knee. If there is fluid in your knee, it often means that something iswrong inside your knee. This can be a result of: ??? Severe arthritis. ??? Injury to the knee muscles or to tissues in the knee (ligaments or cartilage). ??? Infection. ??? Autoimmune disease. This means that your body's defense system (immune system) mistakenly attacks healthy body tissues. Follow these instructions at home: If you have a brace or an immobilizer: ??? Wear it as told by your health care provider. Remove it only as told by your health care provider. ??? Check the skin around it every day. Tell your health care provider about any concerns. ??? Loosen it if your toes tingle, become numb, or turn cold and blue. ??? Keep it clean. ??? If the brace or immobilizer is not waterproof: ??? Do not let it get wet. ??? Cover it with a watertight covering when you take a bath or shower. Managing pain, stiffness, and swelling ??? If directed, put ice on the affected area. To do this: ??? If you have a removable brace or immobilizer, remove it as told by your health care provider. ??? Put ice in a plastic bag. ??? Place a towel between your skin and the bag. ??? Leave the ice on for 20 minutes, 2???3 times a day. ??? Remove the ice if your skin turns bright red. This is very important. If you cannot feel pain, heat, or cold, you have a greater risk of damage to the area. ??? Move your toes often to reduce stiffness and swelling. ??? Raise (elevate) your knee above the level of your heart while you are sitting or lying down. Activity ??? Rest as told by your health care provider. ??? Do not use the injured limb to support your body weight until your health care provider says that you can. Use crutches as told by your health care provider. ??? Do exercises as told by your health care provider. General instructions ??? Take jpkd-uea-xollnsx and prescription medicines only as told by your health care provider. ??? Do not use any products that contain nicotine or tobacco. These products include cigarettes, chewing tobacco, and vaping devices, such as e-cigarettes. If you need help quitting, ask your health care provider. ??? Wear an elastic bandage or a wrap that puts pressure on your knee (compression wrap) as told byyour health care provider. ??? Keep all follow-up visits. This is important. Contact a health care provider if: ??? You continue to have pain in your knee. ??? You have a fever or chills. Get help right away if: ??? You have swelling or redness in your knee that gets worse or does not get better. ??? You have severe pain in your knee. Summary ??? Knee effusion refers to excess fluid in the knee joint. This causes pain and swelling and makesit difficult to bend and move your knee. ??? Effusion may be caused by severe arthritis, autoimmune disease, infection, or injury to the knee muscles or to tissues in the knee (ligaments or cartilage). ??? Take qcyx-neo-wtfjzep and prescription medicines only as told by your health care provider. ??? If you have a brace or an immobilizer, wear it as told by your health care provider. This information is not intended to replace advice given to you by your health care provider. Make sure you discuss any questions you have with your health care provider. Document Revised: 12/08/2020 Document Reviewed: 12/08/2020 [employer] Patient Education ?? 2021 [employer] 06/10/2022 16:22:01 Knee Sprain, Adult Knee Sprain, Adult A knee sprain is a stretch or tear in a knee ligament. Knee ligaments are tissues that connect bones in the knee to each other. What are the causes? This condition often results from: ??? A fall. ??? An injury to the knee. What are the signs or symptoms? Symptoms of this condition include: ??? Trouble straightening or bending the leg. ??? Swelling in the knee. ??? Bruising around the knee. ??? Tenderness or pain in the knee. ??? Muscle spasms around the knee. How is this diagnosed? This condition may be diagnosed based on: ??? A physical exam. ??? A history of what happened just before you started to have symptoms. ??? Tests, including: ??? An X-ray. This may be done to make sure no bones are broken. ??? An MRI. This may be done to check if the ligament is torn. ??? Stress testing of the knee. This may be done to check ligament damage. How is this treated? Treatment for this condition may involve: ??? Keeping the knee still (immobilized) with a cast, brace, or splint. ??? Applying ice to the knee. This helps with pain and swelling. ??? Raising (elevating) the knee above the level of your heart when you are resting. This helps with pain and swelling. ??? Taking medicine for pain. ??? Doing exercises to prevent or limit permanent weakness or stiffness in your knee. ??? Having surgery to reconnect the ligament to the bone or to reconstruct it. This may be needed if the ligament is completely torn. Follow these instructions at home: If you have a splint or brace: ??? Wear it as told by your health care provider. Remove it only as told by your health care provider. ??? Check the skin around it every day. Tell your health care provider about any concerns. ??? Loosen it if your toes tingle, become numb, or turn cold and blue. ??? Keep it clean and dry. If you have a cast: ??? Do not stick anything inside it to scratch your skin. Doing that increases your risk of infection. ??? Check the skin around it every day. Tell your health care provider about any concerns. ??? You may put lotion on dry skin around the edges of the cast. Do not put lotion on the skin underneath the cast. ??? Keep it clean and dry. Bathing If you have a splint, brace, or cast that is not waterproof: ??? Do not let it get wet. ??? Cover it with a watertight covering when you take a bath or a shower. Managing pain, stiffness, and swelling ??? If directed, put ice on the injured area. To do this: ??? If you have a removable splint or brace, remove it as told by your health care provider. ??? Put ice in a plastic bag. ??? Place a towel between your skin and the bag or between your cast and the bag. ??? Leave the ice on for 20 minutes, 2???3 times a day. ??? Move your toes often to reduce stiffness and swelling. ??? Elevate the injured area above the level of your heart while you are sitting or lying down. General instructions ??? Take zqku-ejd-onefked and prescription medicines only as told by your health care provider. ??? Do not use any products that contain nicotine or tobacco, such as cigarettes, e-cigarettes, andchewing tobacco. These can delay healing. If you need help quitting, ask your health care provider. ??? Do exercises as told by your health care provider. ??? Keep all follow-up visits as told by your health care provider. This is important. Contact a health care provider if: ??? You have pain that gets worse. ??? The cast, brace, or splint does not fit right. ??? The cast, brace, or splint gets damaged. Get help right away if: ??? You cannot use your injured knee to support any of your body weight (cannot bear weight). ??? You cannot move the injured joint. ??? You cannot walk more than a few steps without pain or without your knee buckling. ??? You have significant pain, swelling, or numbness in the leg below the cast, brace, or splint. ??? Your foot or toes are numb, cold, or blue after loosening your splint or brace. Summary ??? A knee sprain is a stretch or tear in a knee ligament that usually occurs as the result of a fall or injury. ??? Treatment may involve immobilizing the knee with a cast, splint, or brace and then doing exercises. ??? If the ligament is completely torn, it may require surgery to repair or replace the injured ligament. This information is not intended to replace advice given to you by your health care provider. Make sure you discuss any questions you have with your health care provider. Document Revised: 02/27/2020 Document Reviewed: 02/27/2020 [employer] Patient Education ?? 2021 [employer] Follow Up Care 06/10/2022 15:06:45 With:Follow up with Orthopedic Address: [address] [place] [phone] When:2 to 4 days Physician Emergency department Note * Jose Carlos Dubois MD: PERFORM Event Display: ED Note Physician Authored Date: [id number] AMPARO HESTER :1970 Age:51 years Sex:Female Visit Date:06/10/2022 Primary Care Physician: Nicho Aguila MD Basic Information Time Seen: Jose Carlos Dubois MD / 06/10/2022 15:27 Chief Complaint I just slipped and fell on the ice and my heel hit my ass. PT states recent knee replacement in March at [facility] pt does state I Blacked out from the pain and I had instant swelling. Pt crying on arrival. History Of Present Illness: 51-year-old female??past medical history??presents with??left knee pain after she??slipped and felland hyperflexed her knee and landing on it sideways. ??No blunt trauma to the knee but she slipped and fell on ice??landed awkwardly in a hyperflexion position had sudden onset pain.?? [facility] 10 out of 10 pain.?? Had a recent knee replacement??within the last 2 months. Review of Systems: Left knee pain Physical Exam Vitals & Measurements T:??37.2?C ??(Temporal Artery)?? HR:??117??(Peripheral)?? RR:??20?? BP:??204/120?? SpO2:??97%?? HT:??165.000??cm?? WT:??55.34??kg??(Estimated)?? O2 Therapy:??Room air?? Patient is in 10 out of 10 pain on arrival.?? Neurovascular exam left lower extremity is normal good dorsalis pedis pulse present.?? Motor or sensory exam is normal. ??There is some focal swelling tothe proximal left knee. ??Range of motion limited secondary to pain. ??No lumbar tenderness. Medical Decision Makin-year-old female presents with left knee pain.?? Replaced her knee at [facility] within the last 2 months. ??37.2, 204/120, 117, 20, 97%. ??Patient has??10 out of 10 pain??on arrival.?? Neurovascular exam left lower extremity is normal.?? There is some focal swelling to the proximal knee.?? Radiographsof the knee femur and hip??are unremarkable for acute process/fracture.?? Patient was having such significant pain on arrival??requiring??Tylenol and 50 mics of fentanyl bolus x2.?? On repeat exam she does continue to have pain that is much more controlled.?? Roman wrap to the knee was applied.?? Sheis having difficulty with??knee extension secondary to pain but also feels like??she is not able todo this as well as before.?? Given the??recent knee replacement,??I suspect soft tissue injury/tendon injury or muscular strain??that will likely require MRI??for further diagnostic clarity.?? Orthopedics follow-up is already in place for next week.?? Crutches/walker??provided.?Tylenol, ibuprofen, oxycodone prescribed.?Opiate consent form was signed.?? Discharged in stable condition with return precautions to the ED. Procedure No Qualifying Data Assessment/Plan 1.??Knee effusion??M25.469 Ordered: Tylenol Extra Strength 500 mg oral tablet, 500 mg = 1 tab, Oral, every 4 hr, PRN as needed for pain, # 24 tab, 0 Refill(s), Pharmacy: [facility], 165, cm, 06/10/22 15:15:00 EST, Height/Length Dosing, 55.34, kg, 06/10/22 15:15:00 EST, Weight Dosing ibuprofen 800 mg oral tablet, 800 mg = 1 tab, Oral, every 8 hr, # 30 tab, 0 Refill(s), Pharmacy: [facility], 165, cm, 06/10/22 15:15:00 EST, Height/Length Dosing, 55.34, kg, 06/10/22 15:15:00 EST, Weight Dosing oxyCODONE 5 mg oral tablet, 5 mg = 1 tab, Oral, every 6 hr, PRN as needed for pain, # 10 tab, 0 Refill(s) Discharge Patient, 06/10/22 17:19:00 EST, Home Independently, Constant Indicator ?? 2.??Muscle strain of knee??S86.913L Ordered: Tylenol Extra Strength 500 mg oral tablet, 500 mg = 1 tab, Oral, every 4 hr, PRN as needed for pain, # 24 tab, 0 Refill(s), Pharmacy: [facility], 165, cm, 06/10/22 15:15:00 EST, Height/Length Dosing, 55.34, kg, 06/10/22 15:15:00 EST, Weight Dosing ibuprofen 800 mg oral tablet, 800 mg = 1 tab, Oral, every 8 hr, # 30 tab, 0 Refill(s), Pharmacy: [facility], 165, cm, 06/10/22 15:15:00 EST, Height/Length Dosing, 55.34, kg, 06/10/22 15:15:00 EST, Weight Dosing oxyCODONE 5 mg oral tablet, 5 mg = 1 tab, Oral, every 6 hr, PRN as needed for pain, # 10 tab, 0 Refill(s) Discharge Patient, 06/10/22 17:19:00 EST, Home Independently, Constant Indicator ?? 3.??Knee sprain??S83.90XA Ordered: Tylenol Extra Strength 500 mg oral tablet, 500 mg = 1 tab, Oral, every 4 hr, PRN as needed for pain, # 24 tab, 0 Refill(s), Pharmacy: [facility], 165, cm, 06/10/22 15:15:00 EST, Height/Length Dosing, 55.34, kg, 06/10/22 15:15:00 EST, Weight Dosing ibuprofen 800 mg oral tablet, 800 mg = 1 tab, Oral, every 8 hr, # 30 tab, 0 Refill(s), Pharmacy: [facility], 165, cm, 06/10/22 15:15:00 EST, Height/Length Dosing, 55.34, kg, 06/10/22 15:15:00 EST, Weight Dosing oxyCODONE 5 mg oral tablet, 5 mg = 1 tab, Oral, every 6 hr, PRN as needed for pain, # 10 tab, 0 Refill(s) Discharge Patient, 06/10/22 17:19:00 EST, Home Independently, Constant Indicator ?? Orders: Toradol, 30 mg = 1 mL, IV Push, Soln, Once, First Dose: 06/10/22 17:17:00 EST, Stop Date: 06/10/22 17:17:00 EST, Physician Stop, STAT Discharge Patient, 06/10/22 17:15:00 EST, Home Independently, Constant Indicator Patient Education Knee Effusion Knee Sprain, Adult Follow Up With When Contact Information Follow up with Orthopedic Within 2 to [address] [place] [phone] Additional Instructions: Medication Reconciliation New Prescription ibuprofen (ibuprofen 800 mg oral tablet)1 tab Oral (given by mouth) every 8 hours. Refills: 0. ?? oxyCODONE (oxyCODONE 5 mg oral tablet)1 tab Oral (given by mouth) every 6 hours as needed as neededfor pain. Refills: 0. ?? Changed acetaminophen (Tylenol Extra Strength 500 mg oral tablet)1 tab Oral (given by mouth) every 4 hours as needed as needed for pain. Refills: 0. ?? acetaminophen (Tylenol) ?? Unchanged pregabalin (Lyrica) Problem List/Past Medical History Ongoing Laceration of thumb Rupture extensor digitorum tendon Historical No qualifying data Medication Administration Given !-Ofirmev, 1000 mg, IV Piggyback !-Zofran, 4 mg, IV Push fentaNYL, 50 mcg, IV Push fentaNYL, 50 mcg, IV Push NS bolus, 500 mL, IV Piggyback Allergies Bee Stings sulfa drugs Social History Alcohol Never Electronic Cigarette/Vaping Electronic Cigarette Use: Never. Tobacco Current everyday tobacco user Tobacco Use:. Electronically Signed on 06/10/22 05:22 PM Jose Carlos Dubois MD Emergency department Discharge instructions * Jose Carlos Dubois MD: PERFORM Event Display: ED Discharge Information Authored Date: [id number] MIR AMPARO :1970 Age:51 years Sex:Female Visit Date:06/10/2022 Primary Care Physician: Nicho Aguila MD Discharge Instructions We would like to thank you for allowing us to assist you with your healthcare needs. The following includes patient education materials and information regarding your injury/illness. Diagnosis from Today's Visit Knee effusion Muscle strain of knee Knee sprain Discharge Vitals Temperature??(Temporal Artery) 99.0 ??F (37.2 ??C) Heart Rate??(Peripheral) 117 Respiratory Rate?? 20 Blood Pressure?? 204/120?? Height?? 64.96 in (165.000 cm) Weight??(Estimated) 122.02 lb (55.34 kg) Allergies Bee Stings sulfa drugs What to Do Next Instructions from Your Care Team Follow-up with your??orthopedic physician next week at your scheduled appointment, call them on Sunday to see if you can get an appointment that is sooner. You Need to Schedule the Following Appointments Follow Up with??Follow up with Orthopedic When:??Within 2 to 4 days Where: [address] [place] [address] [phone] You were treated today on an emergency [...] How Much When Why Instructions Next Dose New ibuprofen (ibuprofen 800 mg oral tablet) 1 tab Oral (given by mouth) Every 8 hours Knee effusion Muscle strain of knee Knee sprain Pickup at [facility] New oxyCODONE (oxyCODONE 5 mg oral tablet) 1 tab Oral (given by mouth) Every 6 hours as needed for as needed for pain Knee effusion Muscle strain of knee Knee sprain Printed Prescription Changed acetaminophen (Tylenol Extra Strength 500 mg oral tablet) 1 tab Oral (given by mouth) Every 4 hours as needed for as needed for pain Knee effusion Muscle strain of knee Knee sprain Pickup at [facility] Changed acetaminophen (Tylenol) Unchanged pregabalin (Lyrica) Pharmacy Information [facility]: [address], [place] [id number] [phone] Education Materials Knee Effusion Knee effusion refers to excess fluid in the knee joint. This can cause pain and swelling in your knee. Knee effusion creates more pressure than usual in your knee joint. This makes it more difficult for you to bend and move your knee. If there is fluid in your knee, it often means that something iswrong inside your knee. This can be a result of: ? Severe arthritis. ? Injury to the knee muscles or to tissues in the knee (ligaments or cartilage). ? Infection. ? Autoimmune disease. This means that your body's defense system (immune system) mistakenly attacks healthy body tissues. Follow these instructions at home: If you have a brace or an immobilizer: ? Wear it as told by your health care provider. Remove it only as told by your health care provider. ? Check the skin around it every day. Tell your health care provider about any concerns. ? Loosen it if your toes tingle, become numb, or turn cold and blue. ? Keep it clean. ? If the brace or immobilizer is not waterproof: ? Do not let it get wet. ? Cover it with a watertight covering when you take a bath or shower. Managing pain, stiffness, and swelling ? If directed, put ice on the affected area. To do this: ? If you have a removable brace or immobilizer, remove it as told by your health care provider. ? Put ice in a plastic bag. ? Place a towel between your skin and the bag. ? Leave the ice on for 20 minutes, 2???3 times a day. ? Remove the ice if your skin turns bright red. This is very important. If you cannot feel pain, heat, or cold, you have a greater risk of damage to the area. ? Move your toes often to reduce stiffness and swelling. ? Raise (elevate) your knee above the level of your heart while you are sitting or lying down. Activity ? Rest as told by your health care provider. ? Do not use the injured limb to support your body weight until your health care provider says that you can. Use crutches as told by your health care provider. ? Do exercises as told by your health care provider. General instructions ? Take tara-hnc-uorobyc and prescription medicines only as told by your health care provider. ? Do not use any products that contain nicotine or tobacco. These products include cigarettes, chewing tobacco, and vaping devices, such as e-cigarettes. If you need help quitting, ask your health careprovider. ? Wear an elastic bandage or a wrap that puts pressure on your knee (compression wrap) as told by your health care provider. ? Keep all follow-up visits. This is important. Contact a health care provider if: ? You continue to have pain in your knee. ? You have a fever or chills. Get help right away if: ? You have swelling or redness in your knee that gets worse or does not get better. ? You have severe pain in your knee. Summary ? Knee effusion refers to excess fluid in the knee joint. This causes pain and swelling and makes it difficult to bend and move your knee. ? Effusion may be caused by severe arthritis, autoimmune disease, infection, or injury to the knee muscles or to tissues in the knee (ligaments or cartilage). ? Take gxuc-lvi-qtmcnox and prescription medicines only as told by your health care provider. ? If you have a brace or an immobilizer, wear it as told by your health care provider. This information is not intended to replace advice given to you by your health care provider. Make sure you discuss any questions you have with your health care provider. Document Revised: 12/08/2020 Document Reviewed: 12/08/2020 [employer] Patient Education ?? 2021 [employer] Knee Sprain, Adult A knee sprain is a stretch or tear in a knee ligament. Knee ligaments are tissues that connect bones in the knee to each other. What are the causes? This condition often results from: ? A fall. ? An injury to the knee. What are the signs or symptoms? Symptoms of this condition include: ? Trouble straightening or bending the leg. ? Swelling in the knee. ? Bruising around the knee. ? Tenderness or pain in the knee. ? Muscle spasms around the knee. How is this diagnosed? This condition may be diagnosed based on: ? A physical exam. ? A history of what happened just before you started to have symptoms. ? Tests, including: ? An X-ray. This may be done to make sure no bones are broken. ? An MRI. This may be done to check if the ligament is torn. ? Stress testing of the knee. This may be done to check ligament damage. How is this treated? Treatment for this condition may involve: ? Keeping the knee still (immobilized) with a cast, brace, or splint. ? Applying ice to the knee. This helps with pain and swelling. ? Raising (elevating) the knee above the level of your heart when you are resting. This helps with pain and swelling. ? Taking medicine for pain. ? Doing exercises to prevent or limit permanent weakness or stiffness in your knee. ? Having surgery to reconnect the ligament to the bone or to reconstruct it. This may be needed if the ligament is completely torn. Follow these instructions at home: If you have a splint or brace: ? Wear it as told by your health care provider. Remove it only as told by your health care provider. ? Check the skin around it every day. Tell your health care provider about any concerns. ? Loosen it if your toes tingle, become numb, or turn cold and blue. ? Keep it clean and dry. If you have a cast: ? Do not stick anything inside it to scratch your skin. Doing that increases your risk of infection. ? Check the skin around it every day. Tell your health care provider about any concerns. ? You may put lotion on dry skin around the edges of the cast. Do not put lotion on the skin underneath the cast. ? Keep it clean and dry. Bathing If you have a splint, brace, or cast that is not waterproof: ? Do not let it get wet. ? Cover it with a watertight covering when you take a bath or a shower. Managing pain, stiffness, and swelling ? If directed, put ice on the injured area. To do this: ? If you have a removable splint or brace, remove it as told by your health care provider. ? Put ice in a plastic bag. ? Place a towel between your skin and the bag or between your cast and the bag. ? Leave the ice on for 20 minutes, 2???3 times a day. ? Move your toes often to reduce stiffness and swelling. ? Elevate the injured area above the level of your heart while you are sitting or lying down. General instructions ? Take ivqu-ahx-kixlfzf and prescription medicines only as told by your health care provider. ? Do not use any products that contain nicotine or tobacco, such as cigarettes, e- cigarettes, and chewing tobacco. These can delay healing. If you need help quitting, ask your health care provider. ? Do exercises as told by your health care provider. ? Keep all follow-up visits as told by your health care provider. This is important. Contact a health care provider if: ? You have pain that gets worse. ? The cast, brace, or splint does not fit right. ? The cast, brace, or splint gets damaged. Get help right away if: ? You cannot use your injured knee to support any of your body weight (cannot bear weight). ? You cannot move the injured joint. ? You cannot walk more than a few steps without pain or without your knee buckling. ? You have significant pain, swelling, or numbness in the leg below the cast, brace, or splint. ? Your foot or toes are numb, cold, or blue after loosening your splint or brace. Summary ? A knee sprain is a stretch or tear in a knee ligament that usually occurs as the result of a fall or injury. ? Treatment may involve immobilizing the knee with a cast, splint, or brace and then doing exercises. ? If the ligament is completely torn, it may require surgery to repair or replace the injured ligament. This information is not intended to replace advice given to you by your health care provider. Make sure you discuss any questions you have with your health care provider. Document Revised: 02/27/2020 Document Reviewed: 02/27/2020 Elsevier Patient Education ?? 2021 [employer] Tests Performed Medications and Immunizations Administered Given !-Ofirmev, 1000 mg, IV Piggyback !-Zofran, 4 mg, IV Push fentaNYL, 50 mcg, IV Push fentaNYL, 50 mcg, IV Push NS bolus, 500 mL, IV Piggyback Patient/Box Bender Signature Patient Name:AMPARO HESTER I have received this information and my questions have been answered. Patient/Box Bender Name: Patient/Box Bender Signature: Relationship to Patient: Witness Name/Signature: Date: Electronically Signed on: 06/10/2022 17:22 ESTSigned by:[facility] Emergency department Note * Winnie Villa: PERFORM Event Display: ED Notes Authored Date: [id number] Discharge summary * Winnie Villa: PERFORM Event Display: Discharge Note Authored Date: * Winnie Villa: PERFORM Event Display: Discharge Note Authored Date: Diagnosis: 1. Knee effusion Comment: Diagnosis: 2. Muscle strain of knee Comment: Diagnosis: 3. Knee sprain Comment: Diagnosis: Knee pain-swelling Comment: Electronically Signed on 06/10/22 05:27 PM Winnie Villa Patient Care team information Care Team Personnel Name: Nicho Aguila MD Position: No Access Member Role: Primary Care Physician Address: Address: [address] [id number] Name: Jose Carlos Dubois MD Position: Physician Member Role: ED Physician Address: Address: [facility] [address] [place] [id number] Name: Chriss Morris RN Position: Nurse Member Role: ED Nurse Care Team Related Persons Name: PHOENIX MIMS
--- OUTSIDE RECORDS SUMMARY | 2023-10-16 02:01 | XMS_ITS | Continuity of Care Document ---
Author Name Unknown Organization [facility] Address [address] [place] [address] Care Team Providers Care Drag Sawyer Name Role Phone Nicho Aguila Primary Care Physician [phone] Encounter [facility] Date(s): 06/17/22 - 06/17/[address] [address] Encounter Diagnosis Pain in joint of left knee(Discharge Diagnosis) - 06/17/22 Discharge Disposition: Home or Self Care Attending Physician: Jose Elias Velázquez MD Admitting Physician: Jose Elias Velázquez MD Allergies, Adverse Reactions, Alerts Substance Reaction Severity Status Bee Stings Unknown Active sulfa drugs Unknown Active Functional Status 06/17/22 Family Member Travel History No recent t ravel Recent Travel History No recent travel Other exposure to Infectious Disease Non e Immunizations Given and Recorded Vaccine Date Status Refusal Reason tetanus/diphth/pertuss (Tdap) adult/adol 10/29/21 Given Medications ibuprofen 600 mg oral tablet 600 mg = 1 tab, Oral, every 8 hr, PRN pain, moderate, # 30 tab, 0 Refill(s), 06/30/22 14:22:00 EST,Pharmacy: [facility], 165, cm, 06/17/22 13:51:00 EST, Height/Length Dosing, 55.3, kg, 06/17/22 13:51:00 EST, Weight Dosing Start Date: 06/17/22 Stop Date: 06/30/22 Status: Ordered ibuprofen 800 mg oral tablet 800 mg = 1 tab, Oral, every 8 hr, # 30 tab, 0 Refill(s), Pharmacy: [facility], 165, cm, 06/10/22 15:15:00 EST, Height/Length Dosing, 55.34, kg, 06/10/22 15:15:00 EST, Weight Dosing Start Date: 06/10/22 Status: Ordered Lyrica 0 Refill(s) Start Date: 10/29/21 Status: Ordered oxyCODONE 5 mg oral capsule 5 mg = 1 cap, Oral, BID, PRN as needed for pain, # 10 cap, 0 Refill(s), 06/30/22 14:23:00 EST, Pharmacy: [facility], 165, cm, 06/17/22 13:51:00 EST, Height/Length Dosing, 55.3, kg, 06/17/2312:51:00 EST, Weight Dosing Start Date: 06/17/22 Stop Date: 06/30/22 Status: Ordered oxyCODONE 5 mg oral tablet [...] pain, # 24 tab, 0 Refill(s), Pharmacy: [facility], 165, cm, 06/10/22 15:15:00 EST, Height/Length Dosing, 55.34, kg, 06/10/22 15:15:00 EST, Weight Dosing Start Date: 06/10/22 Status: Ordered Problem List Condition Confirmation Course Effective Dates Status Health St atus Informant Laceration of thumb Confirmed Active Rupture extensor digitorum tendon Confirmed Active Vital Signs Most recent to oldest [Reference Range]: 1 Temperature Temporal Artery [36-38 Deg C ] 37.3 Deg C (06/17/22 1:35 PM) Peripheral Pulse Rate [60-100 bpm] 99 bp m (06/17/22 1:35 PM) Respiratory Rate [12-24 br/min] 20 br/mi n (06/17/22 1:35 PM) Blood Pressure [90-140/60-90 mmHg] 149/1 06mmHg *HI* (06/17/22 1:35 PM) Weight Dosing 55.30 kg (06/17/22 1:51 PM) Weight Estimated 55.30 kg (06/17/22 1:35 PM) Height/Length Dosing 165.000 cm (06/17/22 1:51 PM) Height/Length Estimated 165.000 cm (06/17/22 1:35 PM) Social History Social History Type Response Tobacco Current everyday tob acco user Tobacco Use:. Sex Female Hospital Discharge Instructions Patient Education 06/17/2022 13:25:03 Acute Knee Pain, Adult, Ynjw-qa-Rqra Acute Knee Pain, Adult Many things can cause knee pain. Sometimes, knee pain is sudden (acute) and may be caused by damage, swelling, or irritation of the muscles and tissues that support your knee. The pain often goes away on its own with time and rest. If the pain does not go away, tests may be done to find out what is causing the pain. Follow these instructions at home: If you have a knee sleeve or brace: ??? Wear the knee sleeve or brace as told by your doctor. Take it off only as told by your doctor. ??? Loosen it if your toes: ??? Tingle. ??? Become numb. ??? Turn cold and blue. ??? Keep it clean. ??? If the knee sleeve or brace is not waterproof: ??? Do not let it get wet. ??? Cover it with a watertight covering when you take a bath or shower. Activity ??? Rest your knee. ??? Do not do things that cause pain or make pain worse. ??? Avoid activities where both feet leave the ground at the same time (high- impact activities). Examples are running, jumping rope, and doing jumping jacks. ??? Work with a physical therapist to make a safe exercise program, as told by your doctor. Managing pain, stiffness, and swelling ??? If told, put ice on the knee. To do this: ??? If you have a removable knee sleeve or brace, take it off as told by your doctor. ??? Put ice in a plastic bag. ??? Place a towel between your skin and the bag. ??? Leave the ice on for 20 minutes, 2???3 times a day. ??? Take off the ice if your skin turns bright red. This is very important. If you cannot feel pain, heat, or cold, you have a greater risk of damage to the area. ??? If told, use an elastic bandage to put pressure (compression) on your injured knee. ??? Raise your knee above the level of your heart while you are sitting or lying down. ??? Sleep with a pillow under your knee. General instructions ??? Take ltut-esz-gadnvgj and prescription medicines only as told by your doctor. ??? Do not smoke or use any products that contain nicotine or tobacco. If you need help quitting, ask your doctor. ??? If you are overweight, work with your doctor and a food expert (dietitian) to set goals to loseweight. Being overweight can make your knee hurt more. ??? Watch for any changes in your symptoms. ??? Keep all follow-up visits. Contact a doctor if: ??? The knee pain does not stop. ??? The knee pain changes or gets worse. ??? You have a fever along with knee pain. ??? Your knee is red or feels warm when you touch it. ??? Your knee gives out or locks up. Get help right away if: ??? Your knee swells, and the swelling gets worse. ??? You cannot move your knee. ??? You have very bad knee pain that does not get better with pain medicine. Summary ??? Many things can cause knee pain. The pain often goes away on its own with time and rest. ??? Your doctor may do tests to find out the cause of the pain. ??? Watch for any changes in your symptoms. Relieve your pain with rest, medicines, light activity,and use of ice. ??? Get help right away if you cannot move your knee or your knee pain is very bad. This information is not intended to replace advice given to you by your health care provider. Make sure you discuss any questions you have with your health care provider. Document Revised: 09/22/2020 Document Reviewed: 09/22/2020 Elsevier Patient Education ?? 2021 [employer] Follow Up Care 06/17/2022 13:35:16 With:orthopedist Address: When:5 to 7 days Physician Emergency department Note * Jose Elias Velázquez MD: PERFORM Event Display: ED Note Physician Authored Date: [id number] AMPARO HESTER DOB:1970 Age:51 years Sex:Female Visit Date:06/17/2022 Primary Care Physician: Nicho Aguila MD Basic Information Time Seen: Jose Elias Velázquez MD / 06/17/2022 13:35 Chief Complaint Pt seen in ED last week after hurt L knee/hip from fall on ice. Pt with L knee replacement end of 2021, reports calling orthopedist and PCP, both unable to see her for many weeks and recomended return to ED for pain control. Pt reports frustration, tearfu History Of Present Illness: 51-year-old female returns because of ongoing left knee pain.?? Patient had a total knee replacement by Dr. Quinteros in [facility] at the end of February.?? She was getting refills on??oxycodone through her orthopedist.?? She was seen on 10 June because she fell and hyperflexed her knee and had added pain.?? She had x-rays of her knee femur and left hip which showed no acute anomalies??or hardware failure. ??She was given a refill on oxycodone by Dr. Burdick.?? No other injuries. ??Sheis getting around with a walker,??she ran out of the pain meds??3 days ago, she tried calling her orthopedist and primary care doctor but they could not see her and told her to come back to the ER. ?? She does have an appointment with her orthopedist on 23 June.?? Pain is mostly on the lateral aspect of the knee worse with movement she feels she has less flexion ability that she had. ??She was doing physical therapy but has not this past week because of the added pain. Review of Systems: Constitutional:??no??fever, Skin:??no??Jaundice,??no??rash,? Respiratory: No complaints voiced Cardiovascular:??No complaints of voiced ?? Musculoskeletal:??See HPI ?? Physical Exam Vitals & Measurements T:??37.3?C ??(Temporal Artery)?? HR:??99??(Peripheral)?? RR:??20?? BP:??149/106?? SpO2:??99%?? HT:??165.000??cm?? WT:??55.30??kg??(Estimated)?? Pain Score:??7?? O2 Therapy:??Room air?? General:??alert,??no acute distress.?? Ambulates with her walker,??no acute distress Skin:??warm,??dry. Head:??no??trauma,??normocephalic. ?? Cardiovascular:?normal??peripheral perfusion. Respiratory: respirations??non-labored. Chest wall:??no??deformity. ?? Extremities:??no??deformity,??left lower extremity is well-perfused, no signs of DVT,??the left knee shows clinically that there is no joint effusion,??it appears stable with no laxity on valgus or varus strain.?? Incision from recent surgery is well-healed with no dehiscence. ??No signs of cellulitis. ??She can do active extension with no??evidence of tendon??injury. Neurological:?LOC??appropriate for age,?? , speech??normal. Psychiatric:??cooperative, affect??appropriate for age,?? Medical Decision Making: Medical Decision-Making: Clinical lab tests: ordered and reviewed -??Yes ?? Review and summarize past medical records -??Yes ?? Differential diagnosis includes left knee pain due to recent strain??in the context of recent knee replacement. ??There was no hardware failure or loosening on x-ray recently. ??There is no signs of cellulitis??or septic arthritis or major joint??instability??or tendon tear.?? Complex regional painsyndrome or reflex sympathetic dystrophy to be considered.?? I checked V PMS 1 over opiate consent form, she has had a number of prescription for oxycodone from her orthopedist.?? Nevertheless with the recent injury I did agree to provide a small prescription??of 10 tablets of oxycodone??and refillher ibuprofen also.?? Discharged in stable condition ?? Procedure No Qualifying Data Assessment/Plan 1.??Pain in joint of left knee??M25.562 Ordered: ibuprofen 600 mg oral tablet, 600 mg = 1 tab, Oral, every 8 hr, PRN pain, moderate, # 30 tab, 0 Refill(s), 06/30/22 14:22:00 EST, Pharmacy: [facility], 165, cm, 06/17/22 13:51:00 EST, Height/Length Dosing, 55.3, kg, 06/17/22 13:51:00 EST, Weight Dosing oxyCODONE 5 mg oral capsule, 5 mg = 1 cap, Oral, BID, PRN as needed for pain, # 10 cap, 0 Refill(s), 06/30/22 14:23:00 EST, Pharmacy: [facility], 165, cm, 06/17/22 13:51:00 EST, Height/Length Dosing, 55.3, kg, 06/17/22 13:51:00 EST, Weight Dosing Discharge Patient, 06/17/22 14:21:00 EST, Home Independently, Constant Indicator ?? Patient Education Acute Knee Pain, Adult, Puiq-da-Jgvs Follow Up With When Contact Information orthopedist Within 5 to 7 days Additional Instructions: Medication Reconciliation Changed ibuprofen (ibuprofen 600 mg oral tablet)1 tab Oral (given by mouth) every 8 hours as needed pain, moderate. Refills: 0. ?? ibuprofen (ibuprofen 800 mg oral tablet)1 tab Oral (given by mouth) every 8 hours. Refills: 0. ?? oxyCODONE (oxyCODONE 5 mg oral capsule)1 Capsules Oral (given by mouth) 2 times a day as needed as needed for pain. Refills: 0. ?? oxyCODONE (oxyCODONE 5 mg oral tablet)1 tab Oral (given by mouth) every 6 hours as needed as neededfor pain. Refills: 0. ?? Unchanged acetaminophen (Tylenol Extra Strength 500 mg oral tablet)1 tab Oral (given by mouth) every 4 hours as needed as needed for pain. Refills: 0. ?? acetaminophen (Tylenol) ?? pregabalin (Lyrica) Problem List/Past Medical History Ongoing Laceration of thumb Rupture extensor digitorum tendon Historical No qualifying data Allergies Bee Stings sulfa drugs Social History Alcohol Never Electronic Cigarette/Vaping Electronic Cigarette Use: Never. Substance Use Current, Marijuana, 1-2 times per month- Comments: for anxiety Tobacco Current everyday tobacco user Tobacco Use:. Electronically Signed on 06/17/22 02:25 PM Jose Elias Velázquez MD Emergency department Discharge instructions * Jose Elias Velázquez MD: PERFORM Event Display: ED Discharge Information Authored Date: [id number] AMPARO HESTER :1970 Age:51 years Sex:Female Visit Date:06/17/2022 Primary Care Physician: Nicho Aguila MD Discharge Instructions We would like to thank you for allowing us to assist you with your healthcare needs. The following includes patient education materials and information regarding your injury/illness. Diagnosis from Today's Visit Pain in joint of left knee Discharge Vitals Temperature??(Temporal Artery) 99.1 ??F (37.3 ??C) Heart Rate??(Peripheral) 99 Respiratory Rate?? 20 Blood Pressure?? 149/106?? Height?? 64.96 in (165.000 cm) Weight??(Estimated) 121.94 lb (55.30 kg) Allergies Bee Stings sulfa drugs What to Do Next Instructions from Your Care Team Prescription for ibuprofen sent to her pharmacy to take for severe pain. ??Prescription for oxycodone to take twice daily only??as needed for more severe pain sent to pharmacy. ??Any further prescription for opiates for your knee should come from your??doctor. You Need to Schedule the Following Appointments Follow Up with??orthopedist When:??Within 5 to 7 days You were treated today on an emergency [...] How Much When Why Instructions Next Dose Changed ibuprofen (ibuprofen 600 mg oral tablet) 1 tab Oral (given by mouth) Every 8 hours as needed for pain, moderate Pain in joint of left knee Pickup at [facility] Changed ibuprofen (ibuprofen 800 mg oral tablet) 1 tab Oral (given by mouth) Every 8 hours Knee effusion Muscle strain of knee Knee sprain Changed oxyCODONE (oxyCODONE 5 mg oral capsule) 1 Capsules Oral (given by mouth) 2 times a day as needed for as needed for pain Pain in joint of left knee Pickup at [facility] Changed oxyCODONE (oxyCODONE 5 mg oral tablet) 1 tab Oral (given by mouth) Every 6 hours as needed for as needed for pain Knee effusion Muscle strain of knee Knee sprain Unchanged acetaminophen (Tylenol Extra Strength 500 mg oral tablet) 1 tab Oral (given by mouth) Every 4 hours as needed for as needed for pain Knee effusion Muscle strain of knee Knee sprain Unchanged acetaminophen (Tylenol) Unchanged pregabalin (Lyrica) Pharmacy Information [facility]: [address], [place] [id number] [phone] Education Materials Acute Knee Pain, Adult Many things can cause knee pain. Sometimes, knee pain is sudden (acute) and may be caused by damage, swelling, or irritation of the muscles and tissues that support your knee. The pain often goes away on its own with time and rest. If the pain does not go away, tests may be done to find out what is causing the pain. Follow these instructions at home: If you have a knee sleeve or brace: ? Wear the knee sleeve or brace as told by your doctor. Take it off only as told by your doctor. ? Loosen it if your toes: ? Tingle. ? Become numb. ? Turn cold and blue. ? Keep it clean. ? If the knee sleeve or brace is not waterproof: ? Do not let it get wet. ? Cover it with a watertight covering when you take a bath or shower. Activity ? Rest your knee. ? Do not do things that cause pain or make pain worse. ? Avoid activities where both feet leave the ground at the same time (high-impact activities). Examples are running, jumping rope, and doing jumping jacks. ? Work with a physical therapist to make a safe exercise program, as told by your doctor. Managing pain, stiffness, and swelling ? If told, put ice on the knee. To do this: ? If you have a removable knee sleeve or brace, take it off as told by your doctor. ? Put ice in a plastic bag. ? Place a towel between your skin and the bag. ? Leave the ice on for 20 minutes, 2???3 times a day. ? Take off the ice if your skin turns bright red. This is very important. If you cannot feel pain, heat, or cold, you have a greater risk of damage to the area. ? If told, use an elastic bandage to put pressure (compression) on your injured knee. ? Raise your knee above the level of your heart while you are sitting or lying down. ? Sleep with a pillow under your knee. General instructions ? Take bfbp-gmi-vnfjzoz and prescription medicines only as told by your doctor. ? Do not smoke or use any products that contain nicotine or tobacco. If you need help quitting, ask your doctor. ? If you are overweight, work with your doctor and a food expert (dietitian) to set goals to lose weight. Being overweight can make your knee hurt more. ? Watch for any changes in your symptoms. ? Keep all follow-up visits. Contact a doctor if: ? The knee pain does not stop. ? The knee pain changes or gets worse. ? You have a fever along with knee pain. ? Your knee is red or feels warm when you touch it. ? Your knee gives out or locks up. Get help right away if: ? Your knee swells, and the swelling gets worse. ? You cannot move your knee. ? You have very bad knee pain that does not get better with pain medicine. Summary ? Many things can cause knee pain. The pain often goes away on its own with time and rest. ? Your doctor may do tests to find out the cause of the pain. ? Watch for any changes in your symptoms. Relieve your pain with rest, medicines, light activity, anduse of ice. ? Get help right away if you cannot move your knee or your knee pain is very bad. This information is not intended to replace advice given to you by your health care provider. Make sure you discuss any questions you have with your health care provider. Document Revised: 09/22/2020 Document Reviewed: 09/22/2020 Elsevier Patient Education ?? 2021 [employer] Patient/Bus Inspector Signature Patient Name:AMPARO HESTER I have received this information and my questions have been answered. Patient/Bus Inspector Name: Patient/Bus Inspector Signature: Relationship to Patient: Witness Name/Signature: Date: Electronically Signed on: 06/17/2022 14:25 ESTSigned by:JEFRY Emergency department Note * Olivia Taylor: PERFORM Event Display: ED Notes Authored Date: [id number] * Olivia Taylor: PERFORM Event Display: ED Notes Authored Date: [id number] Patient Care team information Care Team Personnel Name: Nicho Aguila MD Position: No Access Member Role: Primary Care Physician Address: Address: [facility] [address] [place] [address]- Name: Jose Elias Velázquez MD Position: Physician Member Role: Admitting Physician Address: Address: [address] [place] [id number]- Care Team Related Persons Name: PHOENIX MIMS
--- OUTSIDE RECORDS SUMMARY | 2023-10-16 02:01 | XMS_ITS | Continuity of Care Document ---
Author Name Unknown Organization [facility] Address [address] [place] [address] Care Team Providers Care Cpo Name Role Phone Nicho Aguila Primary Care Physician Encounter [facility] Date(s): 12/14/22 - 12/14/[address] [id number] Discharge Disposition: Home or Self Care Attending Physician: Tucker Tavarez MD Admitting Physician: Tucker Tavarez MD Allergies, Adverse Reactions, Alerts Substance Reaction Severity Status Bee Stings Unknown Active sulfa drugs Unknown Active Assessment and Plan Extracted from: Title:Clinical Document Author:Winnie Villa te:12/14/22 Diagnosis: Cough Comment: Functional Status 12/14/22 Other exposure to Infectious Disease COV ID-19 Symptoms Present Immunizations Given and Recorded Vaccine Date Status Refusal Reason tetanus/diphth/pertuss (Tdap) adult/adol 10/29/21 Given Medications amoxicillin-clavulanate 875 mg-125 mg oral tablet 1 tab, Oral, every 12 hr, X 10 days, # 20 tab, 0 Refill(s), 12/24/22 12:48:00 PM CDT, Pharmacy: [id number], 168, cm, 12/14/22 12:56:00 EDT, Height/Length Dosing, 54, kg, 12/14/22 12:56:00 EDT, Weight Dosing Start Date: 12/14/22 Stop Date: 12/24/22 Status: Ordered ibuprofen 800 mg oral tablet 800 mg = 1 tab, Oral, every 8 hr, # 30 tab, 0 Refill(s), Pharmacy: [id number], 165, cm, 06/10/22 15:15:00 EST, Height/Length [...] pain, # 24 tab, 0 Refill(s), Pharmacy: [id number], 165, cm, 06/10/22 15:15:00 EST, Height/Length Dosing, 55.34, kg, 06/10/22 15:15:00 EST, Weight Dosing Start Date: 06/10/22 Status: Ordered Problem List Condition Confirmation Course Effective Dates Status Health St atus Informant Laceration of thumb Confirmed Active Rupture extensor digitorum tendon Confirmed Active Vital Signs Most recent to oldest [Reference Range]: 1 Temperature Temporal Artery [36-38 Deg C ] 36.1 Deg C (12/14/22 12:49 PM) Peripheral Pulse Rate [60-100 bpm] 87 bp m (12/14/22 12:49 PM) Respiratory Rate [12-24 br/min] 22 br/mi n (12/14/22 12:49 PM) Blood Pressure [90-140/60-90 mmHg] 129/9 5mmHg (12/14/22 12:49 PM) Weight Dosing 54.00 kg (12/14/22 12:56 PM) Weight Estimated 54.00 kg (12/14/22 12:49 PM) Height/Length Dosing 168.000 cm (12/14/22 12:56 PM) Height/Length Estimated 168.000 cm (12/14/22 12:49 PM) Social History Social History Type Response Tobacco Current everyday tob acco user Tobacco Use:. 1/2 ppd per day. 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 Offered covid test in triage, declined History Of Present Illness: Presenting concerns are facial pain and cough. ??Time of onset last night at 8 PM. ??Course is progressive.?? Moderate pain over left face. ??Aggravated by palpation. ??Decreased hearing left ear.?? Cough productive of light green sputum. ??Significant green nasal discharge. Review of Systems: Review of systems??negative for??abdominal pain urinary symptoms. Physical Exam Vitals & Measurements T:??36.1?C ??(Temporal Artery)?? HR:??87??(Peripheral)?? RR:??22?? BP:??129/95?? SpO2:??99%?? HT:??168.000??cm?? WT:??54.00??kg??(Estimated)?? Pain Score:??6?? O2 Therapy:??Room air? Problem complexity is low. ??Data complexity is low. ??Management risk are low.No distress. ??Tympanic membranes normal. ??Posterior pharynx normal. ??Tenderness of the left??maxillary sinus.?? Chest auscultation normal. ??Heart auscultation normal. Medical Decision Making: ?? Problem complexity is low. ??The data complexity is low. ??Management risk are low. ??[facility] [id number] Procedure No Qualifying Data Assessment/Plan Ordered: amoxicillin-clavulanate 875 mg-125 mg oral tablet, 1 tab, Oral, every 12 hr, X 10 days, # 20 tab, 0Refill(s), 12/24/22 13:48:00 EDT, Pharmacy: [id number], 168, cm, 12/14/22 12:56:00 EDT, Height/Length Dosing, 54, kg, 12/14/22 12:56:00 EDT, Weight Dosing Discharge Patient, 12/14/22 13:48:00 EDT, Home Independently, Constant Indicator Discharge diagnosis is??acute sinusitis??left maxilla. Medication Reconciliation New Prescription amoxicillin-clavulanate (amoxicillin-clavulanate 875 mg-125 mg oral tablet)1 tab Oral (given by mouth) every 12 hours for 10 Days. Refills: 0. ?? Unchanged acetaminophen (Tylenol Extra Strength 500 mg oral tablet)1 tab Oral (given by mouth) every 4 hours as needed as needed for pain. Refills: 0. ?? acetaminophen (Tylenol) ?? ibuprofen (ibuprofen 800 mg oral tablet)1 tab Oral (given by mouth) every 8 hours. Refills: 0. ?? oxyCODONE (oxyCODONE 5 mg oral tablet)1 tab Oral (given by mouth) every 6 hours as needed as neededfor pain. Refills: 0. Problem List/Past Medical History Ongoing Laceration of thumb Rupture extensor digitorum tendon Historical No qualifying data Allergies Bee Stings sulfa drugs Social History Alcohol Never Electronic Cigarette/Vaping Electronic Cigarette Use: Never. Substance Use Current, Marijuana, 1-2 times per month- Comments: for anxiety Tobacco Current everyday tobacco user Tobacco Use:. 1/2 ppd per day. Electronically Signed on 12/14/22 01:48 PM Alejandro Bronson MD Emergency department Discharge instructions * Alejandro Bronson MD: PERFORM Event Display: ED Discharge Information Authored Date: [id number] AMPARO HESTER :1970 Age:52 years Sex:Female Visit Date:12/14/2022 Primary Care Physician: Nicho Aguila MD Discharge Instructions We would like to thank you for allowing us to assist you with your healthcare needs. The following includes patient education materials and information regarding your injury/illness. Discharge Vitals Temperature??(Temporal Artery) 97.0 ??F (36.1 ??C) Heart Rate??(Peripheral) 87 Respiratory Rate?? 22 Blood Pressure?? 129/95?? Height?? 66.14 in (168.000 cm) Weight??(Estimated) 119.07 lb (54.00 kg) Allergies Bee Stings sulfa drugs What to Do Next Instructions from Your Care Team You have an infection of your left maxillary sinus.?? Take Augmentin 875 mg twice daily for 10 days.?? Take an tqpz-czb-geiliwk probiotic and/or eat some yogurt every day to help prevent adverse effects from the??antibiotic.?? Use and??kjjq-ojd-hrsnukm??nasal spray like Kerwin-Synephrine for 3 days. ??This will help drain your sinuses. ??Do not use for more than 3 days. ?? This should be gradual improvement. ?? Follow-up with your primary care provider as needed. ?? Alejandro Bronson MD You were treated today on an emergency [...] Much When Why Instructions Next Dose New amoxicillin-clavulanate (amoxicillin-clavulanate 875 mg-125 mg oral tablet) 1 tab Oral (given by mouth) Every 12 hours Duration: 10 Days Pickup at [id number] Unchanged acetaminophen (Tylenol Extra Strength 500 mg [...] effusion Muscle strain of knee Knee sprain Pharmacy Information [id number]: [address], [place] [phone] Patient/Manager Park Signature Patient Name:AMPARO HESTER I have received this information and my questions have been answered. Patient/Manager Park Name: Patient/Manager Park Signature: Relationship to Patient: Witness Name/Signature: Date: Electronically Signed on: 12/14/2022 13:48 EDTSigned by:[facility] Discharge summary * Winnie Villa: PERFORM Event Display: Discharge Note Authored Date: * Winnie Villa: PERFORM Event Display: Discharge Note Authored Date: Diagnosis: Cough Comment: Electronically Signed on 12/14/22 02:01 PM Winnie Villa Patient Care team information Care Team Personnel Name: Nicho Aguila MD Position: No Access Member Role: Informed Provider Address: Address: [facility] [address] [place] [address]- [place] Name: Alexandria Manuel Position: Nurse Member Role: ED Nurse Name: Alejandro Bronson MD Position: Physician Member Role: ED Physician Address: Address: [address] [place] [address] [place] Care Team Related Persons Name: PHOENIX MIMS
--- NOTE | 2023-10-16 07:45 | DI.MRI_ITS ---
Exam(s) MR UPPER JOINT RT WO EXAM: MR UPPER JOINT RT WO CLINICAL HISTORY: R SHOULDER PAIN,RT ROTATOR CUFF TEAR,M75.101. TECHNIQUE: Multiplanar multisequence MRI was performed. COMPARISON: Plain films 25 September 2023 FINDINGS: BONES: There is no fracture or contusion pattern. Degenerative cysts in the superior humeral head. JOINTS:The acromioclavicular joint shows mild degenerative changes. The glenohumeral joint shows deg enerative changes with spurring inferiorly. Small joint effusion. TENDONS: Supraspinatus: Normal thickening and intermediate signal consistent with tendinosis. Infraspinatus: Unremarkable. Subscapularis: Unremarkable. Teres Minor: Unremarkable. Biceps and [place]: Unremarkable. MUSCLES: Unremarkable. GLENOID LABRUM: Unremarkable on this noncontrast examination. SOFT TISSUES: Unremarkable. OTHER: Subacromial and subdeltoid bursae shows a minimal amount of fluid. Small amount of fluid in t he subcoracoid bursa. . IMPRESSION: Supraspinatus tendinosis. DATA REPOSITORY:
== END ==
PROVIDERS: PCP Family Medicine; Visit Provider Student in an Organized Health Care Education/Training Program
DX: M75.101 Unspecified rotator cuff tear or rupture of right shoulder, not specified as traumatic (principal); M75.21 Bicipital tendinitis, right shoulder
CPT/HCPCS: 73221

== ENCOUNTER → 2023-10-23 13:41 | Outpatient (BNVA) | payer OTHER, MEDICAID, SELFPAY | PROVIDERS: PCP Family Medicine; Referring Provider Family Medicine; Visit Provider Student in an Organized Health Care Education/Training Program | DX: M75.101 Unspecified rotator cuff tear or rupture of right shoulder, not specified as traumatic (principal); M67.432 Ganglion, left wrist | CPT/HCPCS: 99213 ==

== ENCOUNTER → 2024-11-25 14:00 | Outpatient (BNVA) | payer MEDICARE, MEDICAID, SELFPAY | PROVIDERS: PCP Family Medicine; Referring Provider Family Medicine; Visit Provider Student in an Organized Health Care Education/Training Program | DX: M67.921 Unspecified disorder of synovium and tendon, right upper arm (principal); M67.911 Unspecified disorder of synovium and tendon, right shoulder | CPT/HCPCS: 99213 ==

== ENCOUNTER 2024-12-19 00:25 | Outpatient (CLI) | payer MEDICARE, MEDICAID, SELFPAY ==
--- NOTE | 2024-12-19 06:45 | DI.MRI_ITS ---
Exam(s) MR UPPER JOINT RT WO EXAM: MR UPPER JOINT RT WO CLINICAL HISTORY: R SHOULDER PAIN,TENDINOPATHY RT ROTATOR CUFF,M67.911. TECHNIQUE: Multiplanar multisequence MRI was performed. COMPARISON: CR XR SHOULDER RT COMPLETE 2+V from 09/25/2023 MR MR UPPER JOINT RT WO from 10/16/2023 FINDINGS: BONES: There is no fracture or contusion pattern. Subchondral cysts are seen in the humeral head. JOINTS: There are mild degenerative changes seen at the acromioclavicular joint. There are degenerative changes seen at the glenohumeral joint with thinning of the articular cartilage and humeral head osteophyte. There is a small amount of fluid in the joint space. TENDONS: Supraspinatus: There is thickening of the supraspinatus tendon consistent with tendinosis. No evidence of a tear is seen. Infraspinatus: Unremarkable. Subscapularis: Unremarkable. Teres Minor: Unremarkable. Biceps and [place]: Unremarkable. MUSCLES: There is a small lipoma seen in the anterior deltoid muscle. GLENOID LABRUM: There is hyperintense signal seen in the posterior superior labrum suggestive of a tear. There is a rough appearance of the margins of the superior labrum. SOFT TISSUES: Unremarkable. LIGAMENTS: Unremarkable. OTHER: Mild hyperintense signal seen in the subacromial subdeltoid bursa which may represent a bursitis. IMPRESSION: 1. Findings suspicious for tear of the posterior superior labrum. MR arthrography may be considered for further evaluation. 2. Supraspinatus tendinosis without evidence of a tear. 3. Mild degenerative changes seen at the acromioclavicular and glenohumeral joints. DATA REPOSITORY:
== END 2024-12-19 00:45 ==
PROVIDERS: PCP Family Medicine; Visit Provider Student in an Organized Health Care Education/Training Program
DX: M67.911 Unspecified disorder of synovium and tendon, right shoulder (principal)
CPT/HCPCS: 73221

== ENCOUNTER → 2024-12-24 09:57 | Outpatient (BNVA) | payer MEDICARE, MEDICAID, SELFPAY | PROVIDERS: PCP Family Medicine; Referring Provider Family Medicine; Visit Provider Student in an Organized Health Care Education/Training Program | DX: M67.921 Unspecified disorder of synovium and tendon, right upper arm (principal); M67.911 Unspecified disorder of synovium and tendon, right shoulder; S43.431A Superior glenoid labrum lesion of right shoulder, initial encounter; M94.211 Chondromalacia, right shoulder; X58.XXXA Exposure to other specified factors, initial encounter | CPT/HCPCS: 99214 ==

== ENCOUNTER 2025-01-16 08:40 | Day surgery (SDC) | payer MEDICARE, MEDICAID, SELFPAY ==
[2025-01-16] VITALS (30 sets, daily range): BP systolic 80–118; BP diastolic 46–84; PULSE 51–84; RESP 11–20; TEMP 36.5–36.6; O2SAT 92–99; BMI 20.3
--- NOTE | 2025-01-16 07:11 | PDOC.DSDIS_ITS ---
Date of service: 01/16/25 Discharge Plan Disposition Patient Disposition: Home Condition: Stable Discharge Details Attending Provider: Darin Mcintosh Primary Care Provider: Nicho Aguila Home Meds and New Rx's Prescriptions: New naproxen 250 mg tablet 250 mg PO BID PRN (Reason: moderate pain and swelling) Qty: 20 0RF Rx Instructions: take with a meal oxycodone 5 mg tablet 5 - 10 mg PO .q4-6h MDD 30 mg PRN (Reason: severe pain) Qty: 18 0RF Continued hydroxyzine HCl 10 mg tablet 10 mg PO QHS buprenorphine-naloxone 4-1 mg film See Rx Instructions sublingual .COMPLEX Patient Comments: PLACE ONE FILM UNDER THE TONGUE TWICE A DAY IN THE MORNING Rx Instructions: sublingually one film under tongue bid in am.; buprenorphine-naloxone 2-0.5 mg film See Rx Instructions sublingual .COMPLEX Patient Comments: PLACE ONE FILM UNDER THE TONGUE EVERY DAY AT BEDTIME Rx Instructions: sublingually QHS; Discontinued acetaminophen 500 mg tablet 1,000 mg PO Q8H PRN Qty: 90 0RF Rx Instructions: Take two tablets up to every 8 hours as needed for pain Discharge Instructions Additional Instructions: Surgery: Right shoulder arthroscopy with extensive debridement, subacromial decompression, and open biceps tenodesis 01/16/25; Significant glenohumeral chondromalacia Activity: You should gradually increase range of motion motion and use of your shoulder. You may use your shoulder for all regular activities while protecting biceps repair. Avoid any weighted elbow flexion or resisted supination for 6-8 weeks. No heavy lifting, reaching overhead, or lifting away from body for approximately 2-3 months. You may use the sling whenever you are out of the house for a few weeks. At home it is best to remove the sling and rest the arm on a pillow at your side or support the operative side with your other hand. A physical therapy prescription will be sent electronically to start in about 3 weeks. Prescriptions: Naproxen 250 mg take 1 every 12 hours as needed for moderate pain (use c autiously given history of liver disease) Oxycodone 5 mg take 1-2 every 4-6 hours as needed for severe pain These pain medications may be taken all at once or in different combinations as needed. Also, recommend Colace (docusate) as a stool softener as surgery and pain medicine cause constipation. You may try wxon-mfh-auhifca diphenhydramine (Benadryl) 25-50 mg nightly as a sleep aid Dressings: Remove shoulder bandage after 3 days. Leave the sticky Steri-Strips in place until they fall off or remove them after you shower. Cover the incisions with Band-Aids or leave them open to air. The biceps bandage (inside upper arm) is glued on separately. You may leave this one on a few days longer if it is difficult to remove. There is also glue underneath this bandage that can be left in place until it peels off. You may shower after 5 days. Follow-up: 10-[address] Mcintosh You may take off the leg compression stockings this evening at home. You may also leave them on a few days longer if you have a history of leg swelling or edema. Let us know right away if you develop any redness, drainage, fevers, chest pain, or trouble breathing. Do not drink alcohol or drive for at least 24 hours after anesthesia. Please call the office during business hours with any questions or concerns. Stand Alone Forms: Anesthesia Discharge Inst., [place].Nerve Block Instructions, Es Daniel (DSU) Referrals: Darin Mcintosh MD [ [facility] STAFF PHYSICIAN, Orthopaedic Surgical] - 01/28/25 9:30 am Discharge Orders Discharge Orders: Discharge Order (Routine); Ordered 01/16/25 Ordered By: Pita Larose DS: Diagnosis Discharge Diagnosis (1) SLAP lesion of right shoulder: Status: Acute (2) Tendinopathy of right biceps tendon: Status: Acute
--- NOTE | 2025-01-16 07:27 | ROE_ITS ---
Operative Note Operative Note PRE-OP DIAGNOSIS: Right: 1. SLAP tear 2. Glenohumeral chondromalacia 3. Bursitis POST-OP DIAGNOSIS: same PROCEDURE: Right: 1. Open biceps tenodesis, CPT# 20584. This involved reattaching the long head of the biceps tendon to the proximal humerus in the sub-pectoral area of the bicipital groove at the correct tension. 2. Extensive debridement, CPT# 83612. This involved using arthroscopic hand instruments, power instruments, and radiofrequency instruments to release the long head of the biceps tendon and debride areas of anterior and posterior labral tearing,, SLAP tearing, rotator interval synovitis, and chondromalacia about the humeral head and glenoid working within the glenohumeral joint anteriorly, superiorly and posteriorly. 3. Subacromial decompression with partial acromioplasty, CPT# 46465. This involved using arthroscopic power instruments and a radiofrequency wand to complete a bursectomy and smooth the undersurface of the acromion. The behavioral health assistant was medically required in order to help assist in techniques above, which require positioning the arm, holding the arthroscope, and manipulating multiple instruments and sutures at the same time. This cannot be done without the help of an experienced behavioral health assistant. SURGEON: Darin Mcintosh HIGH SCHOOL PHYSICAL EDUCATION TEACHER: Pita Larose ANESTHESIA TYPE: Local By Surgeon, General LMA/ETT and Primary Nerve Block Refer to Anesthesia Record ESTIMATED BLOOD LOSS: 5 PATHOLOGY: none sent COMPLICATIONS: None Patient was transported to: PACU Patient's condition: stable Implants: Arthrex: Unicortical Proximal Biceps Tenodesis Button Indications: The patient was diagnosed with the above conditions and appropriately indicated for surgical intervention. Please see complete medical record for details. Findings: Exam under anesthesia: Full range of motion, no instability Glenohumeral joint: Moderately significant glenohumeral chondromalacia with significant glenoid cartilage loss and some loose edge flaps and more moderate humeral head fraying cartilage thinning. Lerma labral degenerative type tearing. Obvious unstable biceps anchor SLAP tear. Intact subscapularis. Intact articular sided rotator cuff. Inflamed/injected long head biceps. Subacromial space: Moderate bursitis. No significant undersurface acromial bone spur. Intact bursal rotator cuff. Procedure Description: In the operating room, general anesthesia was induced. Bilateral shoulders were examined. The patient was positioned in the beachchair position. All bony prominences were well-padded. Preoperative antibiotics were administered. The shoulder was prepped and draped in the usual sterile fashion. The correct patient, procedure, and side of the procedure were all verified prior to incision. The anterior and posterior arthroscopy portals as well as a longitudinal subpectoral biceps tenodesis incision were preinjected with 0.25% bupivacaine containing epinephrine. Starting through the posterior portal a standard complete diagnostic arthroscopy was performed of the glenohumeral joint including inspection of the long head of the biceps, anterior and superior labrum, subscapularis tendon, supraspinatus and infraspinatus tendons, and axillary recess. The glenoid and humeral head cartilage as well as the posterior labrum were inspected from an anterior viewing portal. Significant findings and interventions noted above to address the glenohumeral chondromalacia cartilage, labrum, and SLAP tear. The biceps tendon was released from the superior labrum using arthroscopic scissors. Starting through the posterior portal, the arthroscope was directed into the subacromial space. A lateral 50 yard line lateral portal was omitted. The anterior portal was redirected into the subacromial space. A combination of power instruments and a radiofrequency ablator were used to debride bursitis anteriorly, posteriorly, and laterally as well as expose and smooth bone spurring on the undersurface of the acromion. The coracoacromial ligament was partially released. The bursectomy was completed viewing laterally and working from posteriorly and the rotator cuff was thoroughly inspected with findings noted above. The shoulder was drained of arthroscopic fluid. All portal sites were copiously irrigated. A small to medium-sized longitudinal incision at the inferior margin of the pectoralis major localized over the long head of the biceps tendon was used. Blunt and sharp dissection were used to expose the tendon in the bicipital groove. The tendon was brought out of the wound and kept off the skin on top of a blue towel. The correct location for sub-pectoral fixation was localized, prepped with a rasp, and then drilled with a 3.2 mm drill pin in a unicortical fashion. Using a fiber loop suture the tendon was prepped from the musculotendinous junction a few centimeters proximal. The excess tendon was amputated. The free suture ends were then passed through the unicortical button implant. The drill pin was removed and the implant was placed into the humeral intramedullary canal. The button was flipped and the sutures were tensioned bringing the tendon down to bone. Tension and fixation were then tested and found to be appropriate. The suture tails were brought on either side of the tendon and then tied compressing tendon to bone. The wound was copiously irrigated with normal saline. Subcutaneous tissue was closed using 3-0 Monocryl in a buried interrupted fashion. Skin was closed using 3-0 Monocryl in a buried subcuticular running fashion. Skin glue was applied over the incision. The portals were closed using 3-0 Monocryl in a buried fashion and then covered with Mastisol, Steri-Strips, Xeroform, dry gauze, and ABDs. These dressings were secured with Medipore tape. Mastisol was applied about the biceps incision. The incision was covered with Telfa, gauze, and covered with a Tegaderm dressing. The operative extremity was placed into a sling for immobilization. The patient awoke from anesthesia without complication and was transferred to the recovery room in a stable condition. Date of Procedure: 01/16/25
[2025-01-16] MEDS: Lactated Ringers 1,000 ML 30 ML IV (09:21)
--- NOTE | 2025-01-16 09:46 | ANES.PREOP_ITS ---
General Info Date of Service Date Performed: 01/16/25 Height: 5 ft 5 in Weight: 55.4 kg Body Mass Index (BMI): 20.3 Surgical Procedure: Operation Date: 01/16/25 10:55 Proposed Procedure Side Surgeon p Shoulder Unlikely Rotator Cuff Arthroscopic w/Extensive Debridement, Open Biceps Tenodesis, Subacromial Decompression Right Darin Mcintosh MD Meds Allergies and Home Medications Allergies Allergy/AdvReac Type Severity Reaction Status Date / Time Sulfa (Sulfonamide Allergy Severe Anaphylaxis Verified 01/16/25 09:07 Antibiotics) duloxetine AdvReac Severe it Verified 01/16/25 09:07 started fucking with my brain and I had toxic shit lorazepam (From Ativan) AdvReac Intermediate Other (See Verified 01/16/25 09:07 Comment) NSAIDS (Non-Steroidal AdvReac Mild Contraindic Verified 01/16/25 09:07 Anti-Inflamma ated tape Allergy Mild clear Uncoded 01/16/25 09:07 hospital tape bees Allergy Other (See Uncoded 01/16/25 09:07 Comment) Home Medication ?Medication ?Instructions ?Recorded acetaminophen 500 mg tablet 1,000 mg (2 x 500 mg) PO Q 8H PRN 03/22/22 pain #90 tabs buprenorphine 2 mg-naloxone 0.5 mg See Rx Instructions sublingual 10/03/23 sublingual film .COMPLEX buprenorphine 4 mg-naloxone 1 mg See Rx Instructions s ublingual 10/03/23 sublingual film .COMPLEX hydroxyzine HCl 10 mg tablet 10 mg PO QHS 12/24/24 Current Visit Medications: Current Medications Generic Name Dose Route Start Last Admin Trade Name Lenin PRN Reason Stop Dose Admin Ringer's Solution 1,000 mls @ 30 mls/hr 01/16/25 06:00 01/16/25 09:21 IV 01/16/25 23:59 30 mls/hr INFUSION MYESHA Administration Cefazolin Sodium/Dextrose 2 gm in 50 mls @ 100 mls/hr 01/16/25 06:00 Ancef Duplex IVPB 01/16/25 23:59 PREOP MYESHA Tranexamic Acid/Sodium Chloride 1,000 mg in 100 mls @ 600 mls/hr 01/16/25 06:00 IVPB 01/16/25 23:59 PREOP MYESHA IV Miscellaneous Supplies 1 each 01/16/25 06:00 Iv Access IV 01/16/25 23:59 DIRECTED MYESHA Oxycodone HCl 0 mg 01/16/25 07:10 Oxycodone 5 Mg Tab PO 02/15/25 07:09 Q3H PRN PRN Pain Sodium Chloride 0 ml 01/16/25 06:00 Normal Saline Flush 10 Ml Syr IV 01/16/25 23:59 PRN PRN Sodium Chloride 0 ml 01/16/25 06:00 Normal Saline 10 Ml Vial IJ 01/16/25 23:59 DIRECTED PRN Sterile Water 0 ml 01/16/25 06:00 Water,Injection,Sterile 10 Ml Vial IJ 01/16/25 23:59 DIRECTED PRN PFSH Active Problems Active Problems: Problem Status Onset Code Chondromalacia of right shoulder Acute M94.211 SLAP lesion of right shoulder Acute S43.431A Tendinopathy of right biceps tendon Acute M67.921 Tendinopathy of right rotator cuff Acute M67.911 No-show for appointment Acute Z91.199 Ganglion cyst of volar aspect of left wrist Acute M67.432 Iliotibial band syndrome, left leg Acute M76.32 Lumbosacral spondylosis without myelopathy Acute M47.817 Rupture of radial collateral ligament of right thumb Acute S63.641A MCP subluxation Acute S63.219A Odontalgia Acute K08.89 Normal colonoscopy Acute Mild chronic gastritis Acute K29.50 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 denies History of nephrolithiasis Osteoarthritis Cirrhosis History of eye prosthesis left Tobacco dependence History of substance abuse Adjustment disorder History of bloody stools Hepatitis C Patient reports completed treatment around 2016 PTSD (post-traumatic stress disorder) Pt. states no aggressive talk Surgical History Surgical History Status post left knee replacement (03/22/22) Laceration of left thumb with tendon involvement Extensor tendon Treated at [facility] [place] Status post arthroscopy of left knee History of cholecystectomy S/P tubal ligation Traumatic enucleation of left eye Tobacco Smoking/Tobacco Use Status: Current every day Tobacco Type: cigarettes Smoking packs per day: 0.5 Smoking cigarettes per day: 10 Passive smoking exposure: Yes Alcohol Alcohol Intake: former Substance Use Substance use: Daily Substance use type: marijuana Details: use in last 24 hrs (marijuana) Vital Signs and Lab Results Vital Signs Most Recent Vital Signs in EMR: Most Recent Vital Signs Temp Pulse Resp BP Pulse Ox 36.6 C 84 16 118/81 97 01/16/25 09:01 01/16/25 09:01 01/16/25 09:01 01/16/25 09:01 01/16/25 09:01 Anesthesia Assessment and Plan Anesthesia History Personal History: No History of Anesthesia Complications Family History: No Family History of Anesthesia Complications Exercise Tolerance Exercise Tolerance: Metabolic Equivalents>4 Pertinent Negatives Pertinent Negatives: No Symptoms of GERD, No Major Cardiovascular Symptoms or Complaints, No Major Pulmonary Symptoms or Complaints and No History of CVA/TIA Cardiac & Pulmonary Exam Cardiac Exam: Normal S1/S2 Heart Sounds Pulmonary Exam: Clear Bilateral Breath Sounds Implantable Cardiac Device Does patient have a Pacemaker or an ICD?: No Airway Exam Known Difficult Airway: No Mallampati Class: 1 Mouth Opening: Normal (> 3cm) Thyromental Distance: Greater than 3 cm Neck Range of Motion: Full ROM Neck Circumference: Normal Teeth Condition: Normal Dentition ASA Classification ASA Score: ASA 3 Emergency Case?: No NPO Status NPO Status: NPO Clears >2 hours, Solids >8 hours Anesthesia Plan Resuscitation Status: Full Code Anesthesia Technique: General Anesthesia Airway Planned: Endotracheal Tube Pain Management: Surgeon and patient request nerve block Monitors Used: Standard Monitors
--- NOTE | 2025-01-16 11:22 | W.ANESNERVE ---
Nerve Block Single Injection Procedure Date and Time Date Performed: 01/16/25 Procedure Start: 10:58 Location Where Procedure Performed Procedure Location: Day Surgery Unit Reason Performed: Postoperative Analgesia Requesting Provider: Darin Mcintosh Timeout Performed Timeout Performed: Yes Monitoring Used Blood Pressure, SpO2 and See EMR for corresponding vital signs Sterility Sterility: Hand Hygiene, Surgical Cap, Surgical Mask, Sterile Gloves and Chlorhexidine Sedation Given During Procedure Sedation Given (Indicate Dose Given): Versed IV Dose:: 2mg Patient Mental Status Patient Mental Status: Sedate with meaningful communication Nerve Block 1st Nerve Block: Laterality: Right Block Type: Interscalene Ultrasound Image Saved?: Yes Needle / Catheter Used: 80mm SonoPlex II Local Anesthetic Bolus (Indicate Dose Given): Lidocaine used for local infiltration of skin, Injected in 3-5ml increments after negative blood aspiration, Bupivacaine 0.5% Dose:: 10ml and Exparel Dose:: 10ml Additives (Indicate Dose Given): None Ultrasound: Sterile probe cover and gel used Nerve Stimulator: Supplement to Ultrasound use and No twitch or parasthesia noted < 0.5 mA Paresthesia: None Procedure Tolerated: No Complications and Patient tolerated well Procedure Outcome: Successful Performed By: Stephanie Sands Supervised By: Akira Mazariegos
[2025-01-16] MEDS: ceFAZolin 2 GM/50 ML BAG IVPB (11:52)
[2025-01-16] MEDS: TRANEXAMIC ACID/SOD. CHL. 1,000 MG/100 ML BAG 600 MG IVPB (12:02)
[2025-01-16] MEDS: EPINEPHrine 10 MG/10 ML ML (12:12)
[2025-01-16] MEDS: Bupivacaine 0.25% Pres-Free W/EPI 30 ML VIAL (12:12)
--- NOTE | 2025-01-16 14:03 | W.ANESPOSTOP ---
Postoperative Evaluation Date, Time and Location Date Performed: 01/16/25 Time Performed: 14:04 Patient Location: PACU Vital Signs Most Recent Imported Vital Signs: Most Recent Vital Signs Temp Pulse Resp BP Pulse Ox 36.5 C 62 14 96/57 L 93 01/16/25 13:55 01/16/25 13:56 01/16/25 13:56 01/16/25 13:55 01/16/25 13:56 Pain Score Most Recent Pain Score: Most Recent Pain Score Pain Level 0 01/16/25 13:55 Assessment Mental Status: Awake (Alert & Oriented to Patient Baseline) Airway and Respiratory Function: Patent airway with normal (patient baseline) respiratory exam Cardiovascular Function: Hemodynamically Stable Hydration Status: Adequately Hydrated Nausea & Vomiting: No Nausea or Vomiting Pain: Pt. Denies Any Pain Peripheral Nerve Block: Regional nerve block not resolved at time of post operative discharge
== END 2025-01-16 15:40 | disposition home or self-care (01) ==
LOC: SUR 08:40
PROVIDERS: PCP Family Medicine; Visit Provider Student in an Organized Health Care Education/Training Program
PROC: (CPT 29827; principal; 2025-01-16 10:45)
DX: S43.431A Superior glenoid labrum lesion of right shoulder, initial encounter (principal); M94.211 Chondromalacia, right shoulder; M75.51 Bursitis of right shoulder; X58.XXXA Exposure to other specified factors, initial encounter; G89.18 Other acute postprocedural pain
CPT/HCPCS: 23430; 29823; 29826; 64415; J0131; J0665; J0666; J0690; J1100; J1885; J2003; J2250; J2371; J2405; J2704; J3475

== ENCOUNTER → 2025-02-04 14:30 | Outpatient (BNVA) | payer MEDICARE, MEDICAID, SELFPAY | PROVIDERS: PCP Family Medicine; Referring Provider Family Medicine; Visit Provider Student in an Organized Health Care Education/Training Program | DX: Z47.89 Encounter for other orthopedic aftercare (principal); M67.911 Unspecified disorder of synovium and tendon, right shoulder; M94.211 Chondromalacia, right shoulder; S43.431D Superior glenoid labrum lesion of right shoulder, subsequent encounter; X58.XXXD Exposure to other specified factors, subsequent encounter | CPT/HCPCS: 99024 ==

== ENCOUNTER 2025-02-25 14:52 | Outpatient (CLI) | payer MEDICARE, MEDICAID, SELFPAY ==
--- NOTE | 2025-02-25 13:00 | DI.RAD_ITS ---
Exam(s) XR KNEE RT 3V AP,LAT,ANDREA EXAM: XR KNEE RT 3V AP,LAT,ANDREA CLINICAL HISTORY: RIGHT KNEE PAIN. TECHNIQUE: 2D digital imaging was performed of the right knee. Three views obtained. Merchant, AP and lateral views were obtained. COMPARISON: CR XR STANDING ALIGNMENT from 04/07/2022 FINDINGS: BONES: There is a question of a faint oblique lucency at the medial aspect of the patella suspicious for nondisplaced fracture. No bony destructive lesion is seen. JOINTS: There is mild joint space narrowing in the femoral tibial joints. Osteophyte is seen at the lateral tibial plateau. There is a joint effusion present. SOFT TISSUE: Normal. IMPRESSION: 1. Question of a nondisplaced fracture involving the medial patella. Please correlate clinically. A CT scan of the knee should be considered if there is continued clinical concern. 2. [id number] degenerative changes of the right knee. 3. Joint effusion. DATA REPOSITORY: RADIATION DOSE DELIVERED:
== END 2025-02-25 14:53 | disposition home or self-care (01) ==
LOC: DIORS 14:52
PROVIDERS: PCP Family Medicine; Referring Provider Family Medicine; Visit Provider Student in an Organized Health Care Education/Training Program
DX: S83.241A Other tear of medial meniscus, current injury, right knee, initial encounter (principal); M25.561 Pain in right knee; M17.11 Unilateral primary osteoarthritis, right knee; W01.0XXA Fall on same level from slipping, tripping and stumbling without subsequent striking against object, initial encounter
CPT/HCPCS: 99213; 73562